=== PATIENT | female | born 1945 | race Hispanic/Latino ===

== ENCOUNTER 2017-01-18 05:08 | Inpatient (IN) | payer MEDICARE ==
--- NOTE | 2017-01-18 06:05 | ED PDOC ---
Arrival/HPI - General Chief Complaint: Hip Pain Time Seen by Provider: 01/18/17 05:20 Historian: Patient - History of Present Illness Narrative History of Present Illness (Text): 01/18/17 06:00 Alba Yan is a 71 year old female, whose past medical history includes rheumatoid arthrits, hydrocephalus, anxiety, and chronc vertigo, who presents to the Emergency department brought in by EMS complaining of near- syncope tonight. Patient states she got up from bed to use the commode and felt very weak, and dizzy. Patient states she collapsed to the floor and landed on her left side. Patient now complaining of left hip pain, left knee pain, and left ankle pain. 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 PMD: Dr. Jassi Joseph Neurosurgeon: Dr. Willett Time/Duration: Other (tonight) Symptom Onset: Gradual Symptom Course: Unchanged Activities at Onset: Light Context: Standing, Home Past Medical History - Provider Review Nursing Documentation Reviewed: Yes - Infectious Disease Hx of Infectious Diseases: None - Tetanus Immunization Tetanus Immunization: Unknown - Cardiac Hx Hypertension: Yes - Pulmonary Hx Respiratory Disorders: No - Neurological Hx Dizziness: Yes Other/Comment: hydrocephalus blood clots in her brain revision to the shunt in her brain. 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 - HEENT Hx Blind: Yes Hx Macular Degeneration: Yes Other/Comment: LEGALLY BLIND - Renal Hx Renal Disorder: No - Endocrine/Metabolic Hx Hypothyroidism: Yes - Hematological/Oncological Hx Blood Transfusions: No Hx Blood Transfusion Reaction: No - Integumentary Hx Dermatological Disorder: No - Musculoskeletal/Rheumatological Hx Arthritis: Yes - Gastrointestinal Hx Gastrointestinal Disorders: Yes - Genitourinary/Gynecological Hx Genitourinary Disorders: Yes (INCONTINENT) - Psychiatric Hx Anxiety: Yes Hx Depression: Yes Hx Substance Use: No - Surgical History Hx Joint Replacement: Yes Hx Orthopedic Surgery: Yes Other/Comment: brain shunt - Anesthesia Hx Anesthesia: Yes Hx Anesthesia Reactions: No Hx Malignant Hyperthermia: No - Suicidal Assessment Feels Threatened In Home Enviroment: No Family/Social History - Physician Review Nursing Documentation Reviewed: Yes Family/Social History: No Known Family HX Smoking Status: Former Smoker Hx Alcohol Use: No Hx Substance Use: No Hx Substance Use Treatment: No Allergies/Home Meds Allergies/Adverse Reactions: Allergies Sulfa (Sulfonamide Antibiotics) Allergy (Verified 11/23/15 12:55) RASH eye antibiotic Allergy (Uncoded 06/16/15 10:48) SWELLING BACITRACIN OINT AROUND EYES CAUSED FACIAL SWELLING Home Medications: Home Meds Medication Instructions Recorded Confirmed Atenolol 25 mg PO QAM 08/28/12 01/18/17 Levothyroxine Sodium 0.050 mg PO QOTHERDAY 08/28/12 01/18/17 Alprazolam 0.25 mg PO Q6 PRN 08/16/14 01/18/17 Levothyroxine Sodium 0.075 mg PO QOTHERDAY 08/16/14 01/18/17 Methylphenidate HCl [Ritalin] 5 mg PO BID 08/16/14 01/18/17 Celecoxib [CeleBREX] 200 mg PO DAILY 11/21/16 01/18/17 FLUoxetine [Fluoxetine HCl] 40 mg PO DAILY 11/21/16 01/18/17 Folic Acid 1 mg PO DAILY 11/21/16 01/18/17 Gabapentin [Neurontin] 100 mg PO DAILY 11/21/16 01/18/17 Lansoprazole 30 mg PO DAILY 11/21/16 01/18/17 Levothyroxine [Synthroid] 0.05 mg PO QOTHERDAY 11/21/16 01/18/17 Levothyroxine [Synthroid] 0.075 mg PO MWF 11/21/16 01/18/17 Meclizine HCl [Motion Sickness 25 mg PO DAILY 11/21/16 01/18/17 Relief] Multivitamin/Iron/Folic Acid 1 tab PO DAILY 11/21/16 01/18/17 [Centrum Complete Multivit Tab] traZODone [trazODONE HYDROCHLORIDE] 50 mg PO DAILY 11/21/16 01/18/17 Review of Systems - Physician Review All systems were reviewed & negative as marked: Yes - Review of Systems Constitutional: Other (+generalized weakness). absent: Fevers Eyes: Normal ENT: Normal Respiratory: Normal. absent: SOB, Cough Cardiovascular: Other (+near-syncope). absent: Chest Pain Gastrointestinal: Normal. absent: Abdominal Pain, Diarrhea, Nausea, Vomiting Genitourinary Female: Normal. absent: Dysuria, Frequency, Hematuria, Urine Output Changes Musculoskeletal: Arthralgias (+left hip pain, +left knee pain, +left ankle pain) Skin: Normal. absent: Rash Neurological: Dizziness. absent: Headache Endocrine: Normal Hemo/Lymphatic: Normal Psychiatric: Normal Physical Exam Vital Signs Reviewed: Yes Vital Signs Temp Pulse Resp BP Pulse Ox 01/18/17 05:19 98.2 F 78 18 145/56 L 100 Temperature: Afebrile Blood Pressure: Normal Pulse: Regular Respiratory Rate: Normal Appearance: Positive for: Well-Appearing, Non-Toxic, Comfortable Pain Distress: None Mental Status: Positive for: Alert and Oriented X 3 - Systems Exam Head: Present: Atraumatic, Normocephalic Pupils: Present: PERRL Extroacular Muscles: Present: EOMI Conjunctiva: Present: Normal Mouth: Present: Moist Mucous Membranes Neck: Present: Normal Range of Motion Respiratory/Chest: Present: Clear to Auscultation, Good Air Exchange. No: Respiratory Distress, Accessory Muscle Use Cardiovascular: Present: Regular Rate and Rhythm, Normal S1, S2. No: Murmurs Abdomen: Present: Normal Bowel Sounds. No: Tenderness, Distention, Peritoneal Signs Back: Present: Normal Inspection Upper Extremity: Present: Normal Inspection. No: Cyanosis, Edema Lower Extremity: Present: NORMAL PULSES, Normal ROM, Tenderness (Slight discomfort with left hip flexion and left knee flexion), Neurovascularly Intact , Capillary Refill < 2 s. No: Edema, Cyanosis, Swelling, Erythema Neurological: Present: GCS=15, CN II-XII Intact, Speech Normal, Motor Func Grossly Intact, Normal Sensory Function Skin: Present: Warm, Dry, Normal Color. No: Rashes Psychiatric: Present: Alert, Oriented x 3, Normal Insight, Normal Concentration Medical Decision Making ED Course and Treatment: 01/18/17 06:00 Impression: 71 year old female complaining of near-syncope s/p fall at home. Pt complaining of left hip/knee/ankle pain. Plan: -- CT Head w/o contrast -- CT Left Lower Extremity -- EKG -- Chest X-ray -- Labs, cardiac enzymes -- Reassess and disposition Prior Visits: Notes and results from previous visits were reviewed. Progress Notes: - RAD Interpretation Radiology Orders: 01/18/17 06:02 HEAD W/O CONTRAST [CT] Stat 01/18/17 06:03 CHEST PORTABLE [RAD] Stat 01/18/17 06:04 EXT LOWER W/O CONTRAST LEFT [CT] Stat 01/18/17 06:29 ANKLE LEFT 3 VIEWS ROUTINE [RAD] Stat 01/18/17 06:30 KNEE LEFT 2 VIEWS (AP & LAT) [RAD] Stat - Transfer of Care Patient signed out to Dr:: Elizabeth Pending Labs:: Labs/Xray/CT scan/Reassess/final disposition - Scribe Statement The provider has reviewed the documentation as recorded by the Scribe Tammy Fang All medical record entries made by the Scribe were at my direction and personally dictated by me. I have reviewed the chart and agree that the record accurately reflects my personal performance of the history, physical exam, medical decision making, and the department course for this patient. I have also personally directed, reviewed, and agree with the discharge instructions and disposition. Disposition/Present on Arrival - Present on Arrival Any Indicators Present on Arrival: No History of DVT/PE: No History of Uncontrolled Diabetes: No Urinary Catheter: No History of Decub. Ulcer: No History Surgical Site Infection Following: None - Disposition Have Diagnosis and Disposition been Completed?: No Diagnosis: Near syncope, Hip injury, Fall Disposition Time: 07:00 Condition: STABLE
[2017-01-18 07:12] LABS: HEMATOCRIT 38.1 % (36.0-48.0); MEAN CELL VOLUME 94.3 fL (80.0-105.0); MEAN CORPUSCULAR HEMOGLOBIN 31.7 pg (25.0-35.0); MEAN CORPUSCULAR HGB CONC 33.6 g/dl (31.0-37.0); MEAN PLATELET VOLUME 10.1 fl (7.0-11.0); RED CELL DISTRIBUTION WIDTH 15.2 % (11.5-14.5); WHITE BLOOD COUNT 7.8 10^3/ul (4.5-11.0)
[2017-01-18 07:17] LABS: ALB/GLOB RATIO 1.2 (1.1-1.8); ALKALINE PHOSPHATASE 97 U/L (38-133); ALT/SGPT 39 U/L (7-56); AST/SGOT 31 U/L (15-39); BILIRUBIN,TOTAL 0.7 mg/dL (0.2-1.3); BLOOD UREA NITROGEN 10 mg/dL (7-21); CALCIUM 9.4 mg/dL (8.4-10.5); CARBON DIOXIDE 26 mmol/L (21-33); CHLORIDE 103 mmol/L (98-107); GFR AFRICAN-AMERICAN > 60; GLUCOSE,RANDOM 90 mg/dL (70-110); POTASSIUM 4.3 mmol/L (3.6-5.0); SODIUM 140 mmol/L (132-148); TOTAL PROTEIN 7.7 g/dL (5.8-8.3)
--- NOTE | 2017-01-18 07:19 | CT ---
PROCEDURE: CT HEAD WITHOUT CONTRAST. HISTORY: fell /dizzy COMPARISON: None available. TECHNIQUE: Axial computed tomography images were obtained through the head/brain without intravenous contrast. Radiation dose: Total exam DLP = 723 mGy-cm. This CT exam was performed using one or more of the following dose reduction techniques: Automated exposure control, adjustment of the mA and/or kV according to patient size, and/or use of iterative reconstruction technique. FINDINGS: HEMORRHAGE: No interval or or recurring intracranial hemorrhage noted BRAIN: No mass effect or edema. No atrophy or chronic microvascular ischemic changes. VENTRICLES: Chronic hydrocephalus similar-appearing is renoted. The ventricular shunt entering from the right posteriorly has its tip projecting near the midline of the lateral ventricles as it did before. No change in shunt positioning noted. CALVARIUM: Craniotomy changes as before PARANASAL SINUSES: Unremarkable as visualized. No significant inflammatory changes. MASTOID AIR CELLS: Unremarkable as visualized. No inflammatory changes. OTHER FINDINGS: None. IMPRESSION: No interval or recurring intracranial hemorrhage. No interval calvarial fracture. Chronic hydrocephalus with ventricular shunt insertion and midline shunt tip positioning as before
[2017-01-18 07:29] LABS: TROPONIN I 0.01 ng/mL
--- NOTE | 2017-01-18 07:38 | RAD ---
PROCEDURE: Left Ankle Radiographs. HISTORY: injury COMPARISON: None FINDINGS: BONES: No fracture. Fibular tip intra osseous cystic changes. Prominent posterior talar process JOINTS: Mild osteoarthritis. Ankle mortise maintained. Talar dome intact SOFT TISSUES: Mild circumferential soft tissue swelling OTHER FINDINGS: None. IMPRESSION: No fracture. Soft tissue swelling
[2017-01-18 07:39] LABS: INR 1.04 (0.93-1.08); PARTIAL THROMBOPLASTIN TIME 32.2 Seconds (23.7-30.8)
--- NOTE | 2017-01-18 07:40 | ED PDOC ---
Physical Exam Vital Signs Reviewed: Yes Vital Signs Temp Pulse Resp BP Pulse Ox 01/18/17 12:00 97.9 F 59 L 16 160/57 H 01/18/17 10:36 98.5 F 67 16 133/63 98 01/18/17 09:05 56 L 16 129/51 L 96 01/18/17 07:36 61 18 126/88 97 01/18/17 06:49 61 18 99 01/18/17 05:19 98.2 F 78 18 145/56 L 100 Temperature: Afebrile Blood Pressure: Normal Pulse: Regular Respiratory Rate: Normal Appearance: Positive for: Well-Appearing, Non-Toxic, Comfortable Pain Distress: None Mental Status: Positive for: Alert and Oriented X 3 Medical Decision Making ED Course and Treatment: 01/18/17 07:37 Patient endorsed to me by , pending imagining, reevaluation and disposition. Patient is a 71 year old female who presents to the emergency department for evaluation following a near syncopal episode. States she felt weak, dizzy and collapsed to the floor landing on her left side when she got out of bed to use the commode. 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 CT Head results reviewed: Impression: No interval or recurring intracranial hemorrhage. No interval calvarial fracture. Chronic hydrocephalus with ventricular shunt insertion and midline shunt tip positioning as before. 01/18/17 09:15 Case discussed with , who agrees with the plan to observe patient at telemetry for near-syncope. Accepts patient under hospitalist service. Currently patient is awake, alert, no focal weakness noted, but gait instability reported for several days. 01/18/17 13:11 - Lab Interpretations Lab Results: 01/18/17 06:53 01/18/17 06:53 Lab Results 01/18/17 06:53: WBC 7.8 D, RBC 4.04, Hgb 12.8, Hct 38.1, MCV 94.3, MCH 31.7, MCHC 33.6, RDW 15.2 H, Plt Count 249, MPV 10.1 01/18/17 06:53: Sodium 140, Potassium 4.3, Chloride 103, Carbon Dioxide 26, Anion Gap 15, BUN 10, Creatinine 0.7, Est GFR ( Amer) > 60, Est GFR (Non- Af Amer) > 60, Random Glucose 90, Calcium 9.4, Phosphorus 3.9, Magnesium 2.2, Total Bilirubin 0.7, AST 31, ALT 39, Alkaline Phosphatase 97, Lactate Dehydrogenase 625, Total Creatine Kinase 93, Troponin I 0.01, Total Protein 7.7 , Albumin 4.2, Globulin 3.5, Albumin/Globulin Ratio 1.2 01/18/17 06:53: PT 11.2, INR 1.04, APTT 32.2 H - RAD Interpretation Radiology Orders: 01/18/17 06:02 HEAD W/O CONTRAST [CT] Stat 01/18/17 06:03 CHEST PORTABLE [RAD] Stat 01/18/17 06:04 EXT LOWER W/O CONTRAST LEFT [CT] Stat 01/18/17 06:29 ANKLE LEFT 3 VIEWS ROUTINE [RAD] Stat 01/18/17 06:30 KNEE LEFT 2 VIEWS (AP & LAT) [RAD] Stat Budget Technician: Radiologist - Medication Orders Current Medication Orders: Acetaminophen (Tylenol 325mg Tab) 650 mg PO Q6 PRN PRN Reason: Fever >100.4 F Alprazolam (Xanax) 0.25 mg PO Q6 PRN; Protocol PRN Reason: Agitation Stop: 01/25/17 10:37 Atenolol (Tenormin) 25 mg PO DAILY [facility] Fluoxetine HCl (Prozac) 40 mg PO DAILY [facility] Folic Acid (Folic Acid) 1 mg PO DAILY [facility] Gabapentin (Neurontin) 100 mg PO DAILY [facility] PRN Reason: Protocol Levothyroxine Sodium (Synthroid) 50 mcg PO QOTHERDAY [facility] Levothyroxine Sodium (Synthroid) 75 mcg PO MWF [facility] Meclizine HCl (Antivert) 25 mg PO DAILY [facility] Methylphenidate HCl (Ritalin) 5 mg PO BID [facility] Multivitamins (Thera Tab) 1 tab PO DAILY [facility] Ondansetron HCl (Zofran Inj) 4 mg IVP Q6 PRN PRN Reason: Nausea/Vomiting Pantoprazole Sodium (Protonix Ec Tab) 40 mg PO DAILY [facility] Last Admin: 01/18/17 10:49 Dose: 40 mg Trazodone HCl (Desyrel) 50 mg PO DAILY [facility] Discontinued Medications Atenolol (Tenormin) 25 mg PO QAM [facility] Non-Formulary Medication (Multivitamin/Iron/Folic Acid [Centrum Complete Multivit Tab]) 1 tab PO DAILY [facility] Disposition/Present on Arrival - Present on Arrival Any Indicators Present on Arrival: No History of DVT/PE: No History of Uncontrolled Diabetes: No Urinary Catheter: No History of Decub. Ulcer: No History Surgical Site Infection Following: None - Disposition Have Diagnosis and Disposition been Completed?: Yes Diagnosis: Near syncope, Hip injury, Fall Disposition: HOSPITALIZED Disposition Time: 08:35 Patient Plan: Telemetry Patient Problems: Current Active Problems Problem Status Onset Fall Acute Hip injury Acute Near syncope Acute Condition: STABLE
--- NOTE | 2017-01-18 07:40 | RAD ---
HISTORY: fever COMPARISON: 11/23/2015 FINDINGS: LUNGS: No active pulmonary disease. PLEURA: No significant pleural effusion identified, no pneumothorax apparent. CARDIOVASCULAR: Normal. A right cardiophrenic fat pad is suggested OSSEOUS STRUCTURES: No significant abnormalities. VISUALIZED UPPER ABDOMEN: Normal. OTHER FINDINGS: None. IMPRESSION: No interval pathology noted. Specifically no infiltrate appreciated
--- NOTE | 2017-01-18 07:51 | RAD ---
PROCEDURE: Left Knee Radiographs. HISTORY: Pain. COMPARISON: 08/16/2014 FINDINGS: BONES: Status post left total knee arthroplasty femoral and tibial components cemented. Prosthesis and alignment similar-appearing JOINTS: Normal. No osteoarthritis. JOINT EFFUSION: None. OTHER FINDINGS: Posterior distal thigh atherosclerotic vascular calcifications- slightly progressive IMPRESSION: Status post left total knee arthroplasty -stable appearance. Posterior distal thigh atherosclerotic vascular disease -calcification present slightly progressive
--- NOTE | 2017-01-18 09:31 | CT ---
PROCEDURE: CT of the left hip HISTORY: injury/pain left ankle/left knee/left hip COMPARISON: TECHNIQUE: CT of the left hip was performed without contrast. Sagittal and coronal reconstructions were provided FINDINGS: The left hip is unremarkable. There is no joint space narrowing. There is no bony abnormality. No evidence of fracture. The left side of the pelvis is unremarkable. There is no muscular or soft tissue abnormality IMPRESSION: Negative study
--- NOTE | 2017-01-18 10:43 | CP.PCM.HP ---
<Evita Rodriguez - Last Filed: 01/18/17 12:46> History of Present Illness - History of Present Illness History of Present Illness: CC: syncope 71 year old female with past medical history of HTN, normal pressure hydrocephalus, rheumatoid arthiritis, chronic vertigo presents after having an episode of fall. Patient states that she woke up this morning at 4 am to use the bathroom and her legs felt weak and she collapsed on the floor. She denies having any LOC. She landed on her left sided and was on the ground for about half hour until she crawled to phone and called ambulance. Patient states that this has happened before a few months ago. For past week patient states that she has been "feeling sick". She complains of subjective chills, increased urinary frequency and LE weakness to the point where she can't walk as much for past week. She denies having any fevers, dysuria. Patient follows with neurosurgeon, Dr. Edouard for her hydrocephalus. Patient had a shunt placed on 2000. She states that it was turned off due to clots that formed around it. At some later point, she had the shunt replaced. In November of 2015, patient had shunt turned back on. She has monthly CT scans done for evaluation. Patient was found to have subdural hemorrhage and had shunt turned off in November of 2016. She was suppose to follow up with another Ct scan this week and with Dr. Edouard this month. In ED, CT scan of head shows no interval change of her hemorrhage, no fractures and shows shunt tip positioning same as before. Patient denies having any SAUNDERS, CP, SOB, abd pain, N/V/D, fevers or chills at this point. She does complains of constipation. PMHx: stated above Sx: intracranial shunt placement, L LE arthroplasty Allergies: sulfa antibiotics, eye antibiotics Meds: see nov PMD: Dr. sims Neurosurgeon: Dr. Edouard Neurologist: Dr. Theodore Patient Service Technician Pst: Dr. Raines Social: no tobacco, ETOH or drug use Present on Admission - Present on Admission Any Indicators Present on Admission: No Review of Systems - Review of Systems All systems: reviewed and no additional remarkable complaints except Past Patient History - Infectious Disease Hx of Infectious Diseases: None - Tetanus Immunizations Tetanus Immunization: Unknown - Past Social History Smoking Status: Former Smoker Chewing Tobacco Use: No Cigar Use: No Drugs: Denies Home Situation {Lives}: Alone - CARDIAC Hx Hypertension: Yes - PULMONARY Hx Respiratory Disorders: No - NEUROLOGICAL Hx Dizziness: Yes Other/Comment: hydrocephalus blood clots in her brain revision to the shunt in her brain. 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 - HEENT Hx Blind: Yes Hx Macular Degeneration: Yes Other/Comment: LEGALLY BLIND - RENAL Hx Chronic Kidney Disease: No - ENDOCRINE/METABOLIC Hx Hypothyroidism: Yes - HEMATOLOGICAL/ONCOLOGICAL Hx Blood Transfusions: No Hx Blood Transfusion Reaction: No - INTEGUMENTARY Hx Dermatological Problems: No - MUSCULOSKELETAL/RHEUMATOLOGICAL Hx Arthritis: Yes - GASTROINTESTINAL Hx Gastrointestinal Disorders: Yes - GENITOURINARY/GYNECOLOGICAL Hx Genitourinary Disorders: Yes (INCONTINENT) - PSYCHIATRIC Hx Anxiety: Yes Hx Depression: Yes Hx Substance Use: No - SURGICAL HISTORY Hx Joint Replacement: Yes Hx Orthopedic Surgery: Yes Other/Comment: brain shunt - ANESTHESIA Hx Anesthesia: Yes Hx Anesthesia Reactions: No Hx Malignant Hyperthermia: No Meds Allergies/Adverse Reactions: Allergies Allergy/AdvReac Type Severity Reaction Status Date / Time Sulfa (Sulfonamide Allergy RASH Verified 11/23/15 12:55 Antibiotics) eye antibiotic Allergy SWELLING Uncoded 06/16/15 10:48 Physical Exam - Constitutional Appears: Non-toxic, No Acute Distress - Head Exam Head Exam: ATRAUMATIC - Eye Exam Eye Exam: EOMI - ENT Exam ENT Exam: Mucous Membranes Moist - Neck Exam Neck exam: Positive for: Full Rom, Normal Inspection. Negative for: Meningismus , Tenderness - Respiratory Exam Respiratory Exam: Clear to Auscultation Bilateral, NORMAL BREATHING PATTERN. absent: Rales, Rhonchi, Wheezes - Cardiovascular Exam Cardiovascular Exam: REGULAR RHYTHM, +S1, +S2. absent: Diastolic murmur, Gallop , Rubs, Systolic Murmur - GI/Abdominal Exam GI & Abdominal Exam: Normal Bowel Sounds, Soft. absent: Distended, Firm, Guarding, Rigid, Tenderness - Extremities Exam Extremities exam: Negative for: calf tenderness, pedal edema, tenderness - Neurological Exam Neurological exam: Alert, CN II-XII Intact, Oriented x3 - Psychiatric Exam Psychiatric exam: Normal Affect, Normal Mood - Skin Skin Exam: Dry, Intact, Normal Color, Warm Results - Vital Signs Recent Vital Signs: Last Vital Signs Temp 98.5 F 01/18/17 10:36 Pulse 67 01/18/17 10:36 Resp 16 01/18/17 10:36 BP 133/63 01/18/17 10:36 Pulse Ox 98 01/18/17 10:36 - Labs Result Diagrams: 01/18/17 06:53 01/18/17 06:53 - EKG Data EKG Interpreted by: ER Physician Assessment & Plan - Assessment and Plan (Free Text) Assessment: 71 year old female with past medical history of HTN, normal pressure hydrocephalus, rheumatoid arthiritis, chronic vertigo and hypothyroidism is admitted for fall. CT of head showed no interval or recurring intracranial hemorrhage, no cranial fractures. Patient did not exhibit any meningeal signs an no Headache. On blood work, patient had normal WBC count and was afebrile. I spoke with Dr. Edouard about patient. He states that since there are no meningeal signs or headache present and patient is A&Ox 3, and normal WBC count and afebrile, most likely there is no infection at shunt site or intracranially. recommend admitting patient for observation. S/P Fall vs. syncope likely secondary to hydrocephalus vs. infection vs. vasovagal (less likely) vs. arrhythmias (less likely) - Ct of LE is negative for fractures - Knee xray and ankle xray are negative for fractures - Initial troponin and EKg are negative - Will check serial troponin and EKG - Will get orthostatic vital signs - Will check carotid dopplers - will check blood cultures, UA and urine cultures and procal - Cardiology is consulted - ID is consulted Normal pressure hydrocephalus - Nurology, Dr. Kapadia is consulted. - Spoke with patient's neurosurgeon. Continue to monitor patient. Patient has follow up appointment next week with Dr. Edouard. Rheumatoid arthritis - will continue home medications Celebrex and multivitamin and neurontin HTN - Will continue atenolol home medication Hypothyroidism - Will continue home medication synthroid .075 mg PO Q every other day, .05 mg PO MWF - Will check TSH and free T4 Chronic vertigo - Continue home medication meclizine Anxiety - Will continue home medication alprazolam, trazadone and fluoxetine and ritalin Prophylaxis SCDs Protonix Colace Case discussed with attending, Dr. Yee - Date & Time Date: 01/18/17 Time: 11:03 <Eldon Yee - Last Filed: 01/19/17 16:23> Results - Vital Signs Recent Vital Signs: Last Vital Signs Temp 98.5 F 01/19/17 11:57 Pulse 105 H 01/19/17 11:57 Resp 20 01/19/17 11:57 BP 166/70 H 01/19/17 11:57 Pulse Ox 97 01/19/17 00:01 - Labs Result Diagrams: 01/19/17 07:00 01/19/17 07:00 Labs: Laboratory Results - last 24 hr 01/18/17 01/19/17 01/19/17 20:13 07:00 07:00 WBC 6.0 D RBC 3.69 Hgb 11.6 L Hct 34.9 L MCV 94.6 MCH 31.4 MCHC 33.2 RDW 15.1 H Plt Count 236 MPV 9.7 Gran % 65.7 Lymph % (Auto) 21.3 L [place] % (Auto) 8.8 H Eos % (Auto) 3.7 Baso % (Auto) 0.5 Gran # 3.94 Lymph # 1.3 [place] # 0.5 Eos # 0.2 Baso # 0.03 PT 10.7 INR 0.99 APTT 30.2 Sodium Potassium Chloride Carbon Dioxide Anion Gap BUN Creatinine Est GFR ( Amer) Est GFR (Non-Af Amer) Random Glucose Calcium Total Bilirubin AST ALT Alkaline Phosphatase Troponin I < 0.01 Total Protein Albumin Globulin Albumin/Globulin Ratio Urine Color Urine Appearance Urine pH Ur Specific [place] Urine Protein Urine Glucose (UA) Urine Ketones Urine Blood Urine Nitrate Urine Bilirubin Urine Urobilinogen Ur Leukocyte Esterase Urine RBC Urine WBC Urine Bacteria 01/19/17 01/19/17 07:00 09:30 WBC RBC Hgb Hct MCV MCH MCHC RDW Plt Count MPV Gran % Lymph % (Auto) [place] % (Auto) Eos % (Auto) Baso % (Auto) Gran # Lymph # [place] # Eos # Baso # PT INR APTT Sodium 139 Potassium 4.7 Chloride 102 Carbon Dioxide 31 Anion Gap 11 BUN 11 Creatinine 0.7 Est GFR ( Amer) > 60 Est GFR (Non-Af Amer) > 60 Random Glucose 100 Calcium 8.8 Total Bilirubin 0.6 AST 25 ALT 39 Alkaline Phosphatase 76 Troponin I Total Protein 6.8 Albumin 3.6 Globulin 3.2 Albumin/Globulin Ratio 1.1 Urine Color Yellow Urine Appearance Sl cloudy Urine pH 8.0 Ur Specific [place] 1.020 Urine Protein Negative Urine Glucose (UA) Negative Urine Ketones Negative Urine Blood Negative Urine Nitrate Negative Urine Bilirubin Negative Urine Urobilinogen 0.2 Ur Leukocyte Esterase Large H Urine RBC Negative Urine WBC 25 - 30 Urine Bacteria Many Attending/Attestation - Attestation I have personally seen and examined this patient.: Yes I have fully participated in the care of the patient.: Yes I have reviewed all pertinent clinical information: Yes Notes (Text): 01/19/17 16:19 attending note; Patient seen and examined with resident in ER. Patient is alert, awake and oriented. Patient is a 71 year old female with past medical history of HTN, normal pressure hydrocephalus, rheumatoid arthiritis, chronic vertigo presents after having an episode of fall. CT head if no acute findings. patient complaints of chills; but no fever. No leukocytosis. Chest x-ray is negative for infiltrates. Urinary urgency; UA ordered. fall precautions. ID and Cardiology evaluation requested. case discussed with patient's neurosurgeon in detail. PT evaluation requested. patient will follow-up with PMD Dr. Sims. 01/19/17 16:22
[2017-01-18] MEDS ORDERED: [UNRECOGNIZED DRUG - OTHER] PO SCH (10:45)
[2017-01-18] MEDS ORDERED: IRON PO SCH (10:45)
[2017-01-18] MEDS ORDERED: MULTIVITAMIN PO SCH (10:45)
[2017-01-18] MEDS ORDERED: Non Formulary Medication (Celecoxib [Celebrex] 200 MG) PO SCH (10:45)
[2017-01-18] MEDS ORDERED: FOLIC ACID T PO SCH (10:45)
[2017-01-18] MEDS: Pantoprazole 40 mg EC Tab PO SCH (10:49)
[2017-01-18 10:55] LABS: MAGNESIUM 2.2 mg/dL (1.7-2.2); PHOSPHOROUS 3.9 mg/dL (2.5-4.5)
--- NOTE | 2017-01-18 13:34 | US ---
PROCEDURE: Bilateral carotid artery duplex ultrasound HISTORY: Carotid stenosis syncope. PHYSICIAN(S): Tung Myles MD. TECHNIQUE: Duplex sonography and color-flow Doppler were used to evaluate the carotid bifurcations and limited segments of the vertebral arteries bilaterally. FINDINGS: There is mild to moderate smooth heterogeneous plaque noted at the carotid bifurcations bilaterally. The peak systolic velocity in the proximal right internal carotid artery is 107 cm/sec. This corresponds to a 40-59 percent proximal right ICA stenosis. Normal systolic velocities are noted in the proximal right external carotid artery. There is antegrade flow in the right vertebral artery. The peak systolic velocity in the proximal left internal carotid artery is 121 cm/sec. This corresponds to a 40-59 percent proximal left ICA stenosis. Normal systolic velocities are noted in the proximal left external carotid artery. There is antegrade flow in the left vertebral artery. IMPRESSION: 1. Bilateral 40-59 percent proximal ICA stenoses. 2. Antegrade flow in both vertebral arteries.
[2017-01-18] MEDS: Levothyroxine 75 MCG TAB PO SCH (13:40)
[2017-01-18 16:25] VITALS: BMI 32.9
--- NOTE | 2017-01-18 17:18 | CP.PCM.CON ---
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 She denies headache, no dizziness at the time , no chest pain or palpitations. Prior to this she states that she has been "feeling cold" for the past week. She denies fever, no nausea or vomiting, no SOB, no cough, no rhinorrhea, no sore throat, no dysuria, no diarrhea, no abdominal pain. She complains of some lower extremity weakness. Because of the "chills", Infectious diseases consult is requested to further evaluate and manage. Review of Systems - Review of Systems All systems: reviewed and no additional remarkable complaints except (as per HPI ) Past Patient History - Infectious Disease Hx of Infectious Diseases: None - Tetanus Immunizations Tetanus Immunization: Unknown - Past Social History Smoking Status: Former Smoker - CARDIAC Hx Hypertension: Yes - PULMONARY Hx Respiratory Disorders: No - NEUROLOGICAL Hx Dizziness: Yes Other/Comment: hydrocephalus blood clots in her brain revision to the shunt in her brain. 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 - HEENT Hx Blind: Yes Hx Macular Degeneration: Yes Other/Comment: LEGALLY BLIND - RENAL Hx Chronic Kidney Disease: No - ENDOCRINE/METABOLIC Hx Hypothyroidism: Yes - HEMATOLOGICAL/ONCOLOGICAL Hx Blood Transfusions: No Hx Blood Transfusion Reaction: No - INTEGUMENTARY Hx Dermatological Problems: No - MUSCULOSKELETAL/RHEUMATOLOGICAL Hx Falls: Yes - GASTROINTESTINAL Hx Gastrointestinal Disorders: Yes - GENITOURINARY/GYNECOLOGICAL Hx Genitourinary Disorders: Yes (INCONTINENT) - PSYCHIATRIC Hx Substance Use: No - SURGICAL HISTORY Hx Joint Replacement: Yes Hx Orthopedic Surgery: Yes Other/Comment: brain shunt - ANESTHESIA Hx Anesthesia: Yes Hx Anesthesia Reactions: No Hx Malignant Hyperthermia: No Meds Allergies/Adverse Reactions: Allergies Allergy/AdvReac Type Severity Reaction Status Date / Time Sulfa (Sulfonamide Allergy RASH Verified 11/23/15 12:55 Antibiotics) eye antibiotic Allergy SWELLING Uncoded 06/16/15 10:48 - Medications Medications: Current Medications Acetaminophen (Tylenol 325mg Tab) 650 mg PO Q6 PRN PRN Reason: Fever >100.4 F Alprazolam (Xanax) 0.25 mg PO Q6 PRN; Protocol PRN Reason: Agitation Stop: 01/25/17 10:37 Atenolol (Tenormin) 25 mg PO DAILY [facility] Fluoxetine HCl (Prozac) 40 mg PO DAILY [facility] Last Admin: 01/18/17 13:41 Dose: 40 mg Folic Acid (Folic Acid) 1 mg PO DAILY [facility] Last Admin: 01/18/17 13:40 Dose: 1 mg Gabapentin (Neurontin) 100 mg PO DAILY [facility] PRN Reason: Protocol Last Admin: 01/18/17 13:40 Dose: 100 mg Levothyroxine Sodium (Synthroid) 50 mcg PO QOTHERDAY [facility] Levothyroxine Sodium (Synthroid) 75 mcg PO MWF [facility] Last Admin: 01/18/17 13:40 Dose: 75 mcg Meclizine HCl (Antivert) 25 mg PO DAILY [facility] Last Admin: 01/18/17 13:40 Dose: 25 mg Methylphenidate HCl (Ritalin) 5 mg PO BID [facility] Last Admin: 01/18/17 13:40 Dose: 5 mg Multivitamins (Thera Tab) 1 tab PO DAILY [facility] Ondansetron HCl (Zofran Inj) 4 mg IVP Q6 PRN PRN Reason: Nausea/Vomiting Pantoprazole Sodium (Protonix Ec Tab) 40 mg PO DAILY [facility] Last Admin: 01/18/17 10:49 Dose: 40 mg Trazodone HCl (Desyrel) 50 mg PO DAILY [facility] Last Admin: 01/18/17 13:40 Dose: Not Given Physical Exam - Constitutional Appears: Non-toxic, No Acute Distress - Head Exam Head Exam: NORMAL INSPECTION - ENT Exam ENT Exam: Mucous Membranes Moist - Neck Exam Neck exam: Negative for: Lymphadenopathy, Meningismus - Respiratory Exam Respiratory Exam: Decreased Breath Sounds - Cardiovascular Exam Cardiovascular Exam: +S1, +S2 - GI/Abdominal Exam GI & Abdominal Exam: Soft. absent: Tenderness Results - Vital Signs Recent Vital Signs: Last Vital Signs Temp 97.9 F 01/18/17 15:41 Pulse 56 L 01/18/17 15:41 Resp 16 01/18/17 15:41 BP 160/57 H 01/18/17 15:41 Pulse Ox 98 01/18/17 10:36 - Labs Result Diagrams: 01/18/17 06:53 05/03/17 06:53 Labs: Laboratory Results - last 24 hr 01/18/17 01/18/17 01/18/17 10:35 10:56 13:47 ESR 18 Troponin I < 0.01 Influenza Typ A,B (EIA) Negative for flu a/b Assessment & Plan - Assessment and Plan (Free Text) Plan: Assessment R/O sepsis in a patient presenting with syncope normal pressure hydrocephalus S/P [employer]ERING [employer]PERATIONS MANAGER shunt placement last month rheumatoid arthritis vertigo S/P left knee arthroplasty Plan Patient does not have leukocytosis; CXR does not show active disease; Procalcitonin is only 0.06 - will monitor off antibiotics and follow up blood cx , urinalysis and urine cx results Medicine team to continue syncope work up Will monitor clinically
[2017-01-18] MEDS ORDERED: Magnesium Hydroxide Susp 30 ml UD PO PRN (18:03)
--- NOTE | 2017-01-18 18:48 | CARD ---
APPROVED REPORT EKG Measurement Heart [id number] <Conclusion> Normal sinus rhythm Normal ECG
--- NOTE | 2017-01-18 18:50 | CARD ---
APPROVED REPORT EKG Measurement Heart [id number] <Conclusion> Sinus rhythm normal ECG
[2017-01-18] MEDS: cycloSPORINE 0.05 % Opth Emulsion UD OU SCH (22:58)
[2017-01-19 07:36] LABS: ADD MANUAL DIFF? NO
[2017-01-19 07:39] LABS: BASO # 0.03 K/mm3 (0.0-2.0); BASO % 0.5 % (0.0-3.0); EOS # 0.2 (0.0-0.7); EOS % 3.7 % (1.5-5.0); GRAN # 3.94 (1.4-6.5); GRAN % 65.7 % (50.0-68.0); HEMATOCRIT 34.9 % (36.0-48.0); LYMPH # 1.3 (1.2-3.4); LYMPH % 21.3 % (22.0-35.0); MEAN CELL VOLUME 94.6 fL (80.0-105.0); MEAN CORPUSCULAR HEMOGLOBIN 31.4 pg (25.0-35.0); MEAN CORPUSCULAR HGB CONC 33.2 g/dl (31.0-37.0); MEAN PLATELET VOLUME 9.7 fl (7.0-11.0); MONO # 0.5 (0.1-0.6); MONO % 8.8 % (1.0-6.0); PLATELET COUNT 236 10^3/uL (120.0-450.0); RED CELL DISTRIBUTION WIDTH 15.1 % (11.5-14.5)
[2017-01-19 07:48] LABS: INR 0.99 (0.93-1.08); PARTIAL THROMBOPLASTIN TIME 30.2 Seconds (23.7-30.8)
[2017-01-19 07:56] LABS: ALB/GLOB RATIO 1.1 (1.1-1.8); ALKALINE PHOSPHATASE 76 U/L (38-133); ALT/SGPT 39 U/L (7-56); AST/SGOT 25 U/L (15-39); BILIRUBIN,TOTAL 0.6 mg/dL (0.2-1.3); BLOOD UREA NITROGEN 11 mg/dL (7-21); CALCIUM 8.8 mg/dL (8.4-10.5); CARBON DIOXIDE 31 mmol/L (21-33); CHLORIDE 102 mmol/L (98-107); GFR AFRICAN-AMERICAN > 60; GLUCOSE,RANDOM 100 mg/dL (70-110); POTASSIUM 4.7 mmol/L (3.6-5.0); SODIUM 139 mmol/L (132-148); TOTAL PROTEIN 6.8 g/dL (5.8-8.3)
[2017-01-19] MEDS ORDERED: Enoxaparin 40 mg Syringe SC SCH (10:00)
[2017-01-19] MEDS ORDERED: Non Formulary Medication (Celecoxib [Celebrex] 200 MG) PO SCH (10:00)
--- NOTE | 2017-01-19 10:22 | CON ---
DATE: 01/19/2017 INDICATIONS: Fall, rule out syncope. HISTORY OF PRESENT ILLNESS: This is a 71-year-old woman who is known to us who was admitted yesterday after she fell at home. Apparently, she got up from bed to go to the bathroom, felt weak, and fell to the floor without loss of consciousness, palpitations, chest pain, or shortness of breath. She has a history of multiple falls and has complex medical and neurological problems with normal pressure hydrocephalus status post [employer] MANAGER [employer]ODUCTION shunt. She has had difficulty walking. There have been many falls in the past. In addition to falling, she has felt unwell and weak with chills and urinary frequency. There is no orthopnea, PND, edema, fever, sputum production, hemoptysis, abdominal pain, nausea, vomiting, diarrhea, constipation, melena. PAST MEDICAL HISTORY: Complex. She has normal pressure hydrocephalus. She has had a [employer] MA[employer]GER [employer]ODUCTION shunt, and she has neurologic and neurosurgical followup for this. She has rheumatoid arthritis. She has had subdural hematomas. There is a history of cardiac catheterization in 2014, at which time minimal coronary artery disease was noted. There is a history of hypertension, hypothyroidism, osteoarthritis, depression, anxiety, gait disorder. She is legally blind. There is no history of rheumatic fever, myocardial infarction, angina, arrhythmia, stroke, TIA, or gout. MEDICATIONS: At the time of admission include Xanax, atenolol, vitamins, Colace , trazodone, folic acid, lansoprazole, Synthroid, meclizine, gabapentin, fluoxetine, Ritalin, and Celebrex. ALLERGIES: SHE NOTES ALLERGIES TO ANTIBIOTICS INCLUDING SULFA MEDICATIONS. SOCIAL HISTORY: She does not smoke or drink alcohol. She lives at home. FAMILY HISTORY: Noncontributory. REVIEW OF SYSTEMS: A 10-point review of systems is otherwise unremarkable except as noted above. PHYSICAL EXAMINATION: GENERAL: She is a well-developed woman lying in bed on telemetry in no acute distress. VITAL SIGNS: Unremarkable. She is in sinus rhythm at 48-65 beats per minute. She is afebrile, blood pressure 129/52, respiratory rate 16-20, O2 sat 97% on room air. HEENT: Reveals no neck-vein distention, thyromegaly, or carotid bruits. Mucous membranes are moist. Conjunctivae are pink. NECK: Supple. LUNGS: Lung acosta are clear. HEART: Revealed normal first and second heart sounds. PMI is not displaced. ABDOMEN: Soft, bowel sounds present. No mass, organomegaly, tenderness, rebound, or guarding. No CVA tenderness. No palpable abdominal aortic aneurysm. EXTREMITIES: Revealed no cyanosis, clubbing, or edema. NEUROLOGIC: She is awake, alert, and oriented. SKIN: Warm and dry. No rash or cellulitis. PSYCHIATRIC: Normal as to mood and affect. LABORATORY AND IMAGING: A CT scan of the head was unremarkable and unchanged. A chest x-ray, a portable study, reveals no interval pathology. Lower extremity CT was unremarkable. Left ankle x-ray revealed no fracture, but there was soft tissue swelling. A left knee x-ray reveals status post left total knee arthroplasty, stable appearance. A carotid ultrasound reveals bilateral 40%-59% proximal ICA stenoses. EKG demonstrates normal sinus rhythm, within normal limits. White count normal, hemoglobin 11.6, hematocrit 34.9, platelet count normal. PT , INR, PTT unremarkable. Electrolytes, BUN, creatinine, blood sugar, magnesium , LFTs were all unremarkable. Troponins negative x 3. CK 93. Procalcitonin 0.06. IMPRESSION: The patient is a 71-year-old woman with complex medical and neurologic problems with normal-pressure hydrocephalus and an existing [employer] shunt with chronic gait instability and history of falls, who fell at home after getting up from bed to go to the bathroom. She also felt weak with chills and urinary frequency. Today, she feels better. There has been no arrhythmia documented on telemetry. She has been cultured. She has an infectious disease consultation. She has been put on her usual medications including atenolol, Synthroid, gabapentin, folic acid, trazodone, Antivert, Protonix, eyedrops, Ritalin, vitamins, and Xanax. I would check her for postural hypotension. I will review her old cardiac records. She is going to have a neurologic evaluation. She can be out of bed to chair. She should be considered a high fall risk and ambulate only with assistance. I will follow along with you. I will make additional recommendations based on her clinical course. Negro San MD cc: [id number] TT: 01/19/2017 10:21:47 Confirmation # [id number] Dictation # [id number] MEG
[2017-01-19] MEDS: Pantoprazole 40 mg EC Tab PO SCH (10:31)
[2017-01-19] MEDS: Levothyroxine 50 MCG TAB PO SCH (10:31)
[2017-01-19] MEDS: Multivitamin Therapeutic Tab PO SCH (10:32)
[2017-01-19] MEDS: cycloSPORINE 0.05 % Opth Emulsion UD OU SCH ×2 (10:37→23:16)
[2017-01-19] MEDS ORDERED: guaiFENesin 200 mg/10 ml Syrup UD PO PRN (12:35)
--- NOTE | 2017-01-19 13:12 | CON ---
DATE: 01/19/2017 This is a 71-year-old white female with a past medical history of normal pressure hydrocephalus, stat us post FINANCIAL QUANTITATIVE ANALYST shunt and rheumatoid arthritis, had subdural hematoma, recently evacuated. Now, admitted because she fell at home. The patient got up from the bed to bathroom, felt weak and fell on the nichelle or without loss of consciousness and had multiple falls in the past and status post FINANCIAL QUANTITATIVE ANALYST shunt, had dif ficulty walking. Called to evaluate the patient. PAST MEDICAL HISTORY: Normal pressure hydrocephalus, status post FINANCIAL QUANTITATIVE ANALYST shunt, status post subdural jose katherin evacuation, rheumatoid arthritis, coronary artery disease, hypertension, hypothyroidism, depress ion, anxiety and gait disorder. MEDICATIONS: Xanax, atenolol, trazodone, Synthroid, meclizine, gabapentin, Ritalin and Celebrex. ALLERGIES: SHE IS ALLERGIC TO SULFA. SOCIAL HISTORY: Does not smoke, does not drink. REVIEW OF SYSTEMS: A 10-point was negative except as noted above. PHYSICAL EXAMINATION: HEENT: Normocephalic, atraumatic. NECK: Supple. NEUROLOGIC: Awake, oriented to self, sitting comfortably on the bed. No facial asymmetry. Tongue m idline. Motor examination: Spontaneous movement of all the extremities noted. Deep tendon reflexes 1+. Both plantars are downgoing. Sensory appears intact. Cerebellar, gait deferred. IMPRESSION: A 71-year-old white female with a past medical history of normal pressure hydrocephalus with ventriculoperitoneal shunt and had a syncopal episode going to the bathroom and workup in [facility]. Continue present management. We will follow up. Radhames Kapadia MD cc: [id number] TT: 01/19/2017 13:12:08 Confirmation # [id number] Dictation # [id number]
--- NOTE | 2017-01-19 13:25 | CP.PCM.PN ---
<Evita Rodriguez - Last Filed: 01/19/17 13:21> Subjective - Date & Time of Evaluation Date of Evaluation: 01/19/17 Time of Evaluation: 13:21 - Subjective Subjective: HOSPITALISTS PROGRESS NOTE Pt is seen and examined at bedside. No acute events overnight. Patient is waling to bathroom. She states that she feels weak when she walks but is able to without any assistance. Patient denies having any fevers, chills, CP, sob, abd pain, n/v/d/c. She does c/o cough. Objective - Vital Signs/Intake and Output Vital Signs (last 24 hours): Temp Pulse Resp BP Pulse Ox 98.5 F 105 H 20 166/70 H 97 01/19/17 11:57 01/19/17 11:57 01/19/17 11:57 01/19/17 11:57 01/19/17 00:01 Intake and Output: 01/19/17 01/19/17 06:59 18:59 Intake Total 840 Output Total 1950 Balance -1110 - Medications Medications: Current Medications Acetaminophen (Tylenol 325mg Tab) 650 mg PO Q6 PRN PRN Reason: Fever >100.4 F Alprazolam (Xanax) 0.25 mg PO Q6 PRN; Protocol PRN Reason: Agitation Stop: 01/25/17 10:37 Atenolol (Tenormin) 25 mg PO DAILY [facility] Last Admin: 01/19/17 10:32 Dose: 25 mg Cyclosporine (Restasis) 1 ea OU Q12 [facility] Last Admin: 01/19/17 10:37 Dose: 1 ea Fluoxetine HCl (Prozac) 40 mg PO DAILY [facility] Last Admin: 01/19/17 10:32 Dose: 40 mg Folic Acid (Folic Acid) 1 mg PO DAILY [facility] Last Admin: 01/19/17 10:31 Dose: 1 mg Gabapentin (Neurontin) 100 mg PO DAILY [facility] PRN Reason: Protocol Last Admin: 01/19/17 10:40 Dose: 100 mg Guaifenesin (Robitussin) 200 mg PO Q4H PRN PRN Reason: Cough and congestion Levothyroxine Sodium (Synthroid) 50 mcg PO QOTHERDAY [facility] Last Admin: 01/19/17 10:31 Dose: 50 mcg Levothyroxine Sodium (Synthroid) 75 mcg PO MWF [facility] Last Admin: 01/18/17 13:40 Dose: 75 mcg Magnesium Hydroxide (Milk Of Magnesia) 30 ml PO DAILY PRN PRN Reason: Constipation Last Admin: 01/18/17 22:58 Dose: 30 ml Meclizine HCl (Antivert) 25 mg PO DAILY [facility] Last Admin: 01/19/17 10:31 Dose: 25 mg Methylphenidate HCl (Ritalin) 5 mg PO BID [facility] Last Admin: 01/19/17 10:37 Dose: 5 mg Multivitamins (Thera Tab) 1 tab PO DAILY [facility] Last Admin: 01/19/17 10:32 Dose: 1 tab Ondansetron HCl (Zofran Inj) 4 mg IVP Q6 PRN PRN Reason: Nausea/Vomiting Pantoprazole Sodium (Protonix Ec Tab) 40 mg PO DAILY [facility] Last Admin: 01/19/17 10:31 Dose: 40 mg Trazodone HCl (Desyrel) 50 mg PO HS [facility] Last Admin: 01/18/17 22:58 Dose: 50 mg - Labs Labs: 01/19/17 07:00 01/19/17 07:00 PT 10.7 Seconds (9.9-11.8) 01/19/17 07:00 INR 0.99 (0.93-1.08) 01/19/17 07:00 APTT 30.2 Seconds (23.7-30.8) 01/19/17 07:00 - Constitutional Appears: Non-toxic, No Acute Distress - Head Exam Head Exam: ATRAUMATIC - ENT Exam ENT Exam: Mucous Membranes Moist - Respiratory Exam Respiratory Exam: Clear to Ausculation Bilateral, NORMAL BREATHING PATTERN. absent: Rales, Rhonchi, Wheezes - Cardiovascular Exam Cardiovascular Exam: REGULAR RHYTHM, +S1, +S2. absent: Gallop, Rubs, Murmur - GI/Abdominal Exam GI & Abdominal Exam: Soft, Normal Bowel Sounds. absent: Distended, Firm, Guarding, Rigid, Tenderness - Extremities Exam Extremities Exam: absent: Pedal Edema, Tenderness - Neurological Exam Neurological Exam: Alert, Awake, Oriented x3 - Psychiatric Exam Psychiatric exam: Normal Affect, Normal Mood - Skin Skin Exam: Dry, Intact, Normal Color, Warm Assessment and Plan - Assessment and Plan (Free Text) Assessment: 71 year old female with past medical history of HTN, normal pressure hydrocephalus, rheumatoid arthiritis, chronic vertigo and hypothyroidism is admitted for fall. CT of head showed no interval or recurring intracranial hemorrhage, no cranial fractures. Patient did not exhibit any meningeal signs an no headache. On blood work, patient had normal WBC count and was afebrile. Ct of LE is negative for fractures. Knee xray and ankle xray are negative for fractures. I spoke with Dr. Willett about patient. He states that since there are no meningeal signs or headache present and patient is A&Ox 3, and normal WBC count and afebrile, most likely there is no infection at shunt site or intracranially. recommend admitting patient for observation. Dr. Liu's number is [phone]. S/P Fall vs. syncope likely secondary to hydrocephalus vs. infection vs. vasovagal (less likely) vs. arrhythmias (less likely) - Troponins and EKG are negative - Oorthostatic vital signs are normal - Carotid dopplers show 40-59% stenosis in B/L ICA - Procal is negative - Blood and urine cultures are pending - Cardiology is consulted - ID is consulted - Neurology is consulted Normal pressure hydrocephalus - Nurology, Dr. Kapadia is consulted. - Spoke with patient's neurosurgeon. Continue to monitor patient. Patient has follow up appointment next week with Dr. Willett. Rheumatoid arthritis - will continue home medications Celebrex and multivitamin and neurontin HTN - Will continue atenolol home medication Hypothyroidism - Will continue home medication synthroid .075 mg PO Q every other day, .05 mg PO MWF - Will check TSH and free T4 Chronic vertigo - Continue home medication meclizine Anxiety - Will continue home medication alprazolam, trazadone and fluoxetine and ritalin Cough - Robitussin prn Prophylaxis SCDs Protonix Colace Case discussed with attending, Dr. Yee <Eldon Yee - Last Filed: 01/19/17 16:28> Objective - Vital Signs/Intake and Output Vital Signs (last 24 hours): Temp Pulse Resp BP Pulse Ox 98.5 F 105 H 20 166/70 H 97 01/19/17 11:57 01/19/17 11:57 01/19/17 11:57 01/19/17 11:57 01/19/17 00:01 Intake and Output: 01/19/17 01/19/17 06:59 18:59 Intake Total 840 397 Output Total 1950 100 Balance -1110 297 - Medications Medications: Current Medications Acetaminophen (Tylenol 325mg Tab) 650 mg PO Q6 PRN PRN Reason: Fever >100.4 F Alprazolam (Xanax) 0.25 mg PO Q6 PRN; Protocol PRN Reason: Agitation Stop: 01/25/17 10:37 Atenolol (Tenormin) 25 mg PO DAILY [facility] Last Admin: 01/19/17 10:32 Dose: 25 mg Cyclosporine (Restasis) 1 ea OU Q12 [facility] Last Admin: 01/19/17 10:37 Dose: 1 ea Fluoxetine HCl (Prozac) 40 mg PO DAILY [facility] Last Admin: 01/19/17 10:32 Dose: 40 mg Folic Acid (Folic Acid) 1 mg PO DAILY [facility] Last Admin: 01/19/17 10:31 Dose: 1 mg Gabapentin (Neurontin) 100 mg PO DAILY [facility] PRN Reason: Protocol Last Admin: 01/19/17 10:40 Dose: 100 mg Guaifenesin (Robitussin) 200 mg PO Q4H PRN PRN Reason: Cough and congestion Ceftriaxone Sodium (Rocephin 1 Gram Ivpb) 1 gm in 100 mls @ 100 mls/hr IVPB DAILY [facility] PRN Reason: Protocol Levothyroxine Sodium (Synthroid) 50 mcg PO QOTHERDAY [facility] Last Admin: 01/19/17 10:31 Dose: 50 mcg Levothyroxine Sodium (Synthroid) 75 mcg PO MWF [facility] Last Admin: 01/18/17 13:40 Dose: 75 mcg Magnesium Hydroxide (Milk Of Magnesia) 30 ml PO DAILY PRN PRN Reason: Constipation Last Admin: 01/18/17 22:58 Dose: 30 ml Meclizine HCl (Antivert) 25 mg PO DAILY [facility] Last Admin: 01/19/17 10:31 Dose: 25 mg Methylphenidate HCl (Ritalin) 5 mg PO BID [facility] Last Admin: 01/19/17 10:37 Dose: 5 mg Multivitamins (Thera Tab) 1 tab PO DAILY [facility] Last Admin: 01/19/17 10:32 Dose: 1 tab Ondansetron HCl (Zofran Inj) 4 mg IVP Q6 PRN PRN Reason: Nausea/Vomiting Pantoprazole Sodium (Protonix Ec Tab) 40 mg PO DAILY [facility] Last Admin: 01/19/17 10:31 Dose: 40 mg Trazodone HCl (Desyrel) 50 mg PO HS [facility] Last Admin: 01/18/17 22:58 Dose: 50 mg - Labs Labs: 01/19/17 07:00 01/19/17 07:00 PT 10.7 Seconds (9.9-11.8) 01/19/17 07:00 INR 0.99 (0.93-1.08) 01/19/17 07:00 APTT 30.2 Seconds (23.7-30.8) 01/19/17 07:00 Attending/Attestation - Attestation I have personally seen and examined this patient.: Yes I have fully participated in the care of the patient.: Yes I have reviewed all pertinent clinical information, including history, physical exam and plan: Yes Notes (Text): 01/19/17 16:25 attending note; Patient seen and examined with resident. Patient is alert, awake and oriented. denies any fevar or chills. CE negative. no orthostatic blood pressure changes. CT head if no acute findings. Chest x-ray is negative for infiltrates. Procalcitonin is negative. ESR is negative. positive UA.Started on Rocephin. ID and Cardiology evaluation appreciated. neurology evaluation appreciated. PT evaluation appreciated. TCU recommended. patient will follow-up with PMD Dr. Joseph.
[2017-01-19 13:58] LABS: URINE BILIRUBIN NEGATIVE (NEGATIVE); URINE BLOOD NEGATIVE (NEGATIVE); URINE GLUCOSE (UA) NEGATIVE (NEGATIVE); URINE KETONE NEGATIVE (NEGATIVE); URINE LEUKOCYTE ESTERASE LARGE Leu/uL (NEGATIVE); URINE PROTEIN NEGATIVE mg/dL (<30 mg/dL); URINE UROBILINOGEN 0.2 E.U./dL (<1 E.U./dL)
[2017-01-19 14:08] LABS: URINE APPEARANCE SL CLOUDY (CLEAR); URINE COLOR YELLOW (YELLOW)
[2017-01-19 14:09] LABS: URINE BACTERIA MANY (NEG); URINE RBC NEGATIVE /hpf (0-2); URINE WBC 25 - 30 /hpf (0-6)
--- NOTE | 2017-01-19 14:17 | PN ---
DATE: 01/19/2017 SUBJECTIVE: The patient seen earlier in 272, bed 2. She states she is having cough that has been pe rsistent now for some time. No nausea or vomiting. No fevers, no chills. PHYSICAL EXAMINATION: VITAL SIGNS: Temperature is 98, blood pressure is 160/70, respiratory rate of 20, heart rate of 105. HEENT: Unremarkable. NECK: Supple. LUNGS: Have decreased breath sounds. HEART: Normal S1, S2. ABDOMEN: Soft, nontender. LABORATORY DATA: Reveals a white count of 6, hemoglobin 11, platelets of 236. Chemistries reveal th e BUN of 11, creatinine of 0.7 and procalcitonin 0.06 Serology is negative for influenza. Blood cul tures are pending. Review of the medications reveals the patient to be on no antibiotics. The patient's procalcitonin 0 .06 and white count is normal. Temperature is afebrile. ____ note is reviewed. Dr. Kapadia's co nsultation is reviewed. Dr. Negro San's consultation is also reviewed. ASSESSMENT AND PLAN: This is a 71-year-old female with normal pressure hydrocephalus with a ventricu loperitoneal shunt, history of rheumatoid arthritis, who was admitted with syncope and currently off of antibiotics, afebrile, normal white count, a normal procalcitonin. She is having a persistent cou gh which she has had, she states, for months, for which patient did have a chest x-ray which was no a ctive disease, and a CAT scan of the head. Will follow with you. Aashish Sparks MD cc: [id number] TT: 01/19/2017 14:16:35 Confirmation # [id number] Dictation # [id number] [employer]
--- NOTE | 2017-01-19 16:09 | CARD ---
APPROVED REPORT EXAM: Two-dimensional and M-mode echocardiogram with Doppler and color Doppler. INDICATION Syncope 2D DIMENSIONS Left Atrium (2D)3.6 (1.6-4.0cm)IVSd1.4 (0.7-1.1cm) LVDd4.7 (3.9-5.9cm)PWd1.1 (0.7-1.1cm) LVDs3.3 (2.5-4.0cm)FS (%) 29.0 % LVEF (%)55.5 (>50%) M-Mode DIMENSIONS Aortic Root2.80 (2.2-3.7cm)Aortic Cusp Exc.1.70 (1.5-2.0cm) Aortic Valve AoV Peak Spvnauva558.0cm/Adelfo Peak GR.13mmHg Mitral Valve MV E Vzkzkneq04.8cm/sMV A Swwwutao43.8cm/sE/A ratio0.9 TDI E/Lateral E'0.0E/Medial E'0.0 Tricuspid Valve TR Peak [id number]/sRAP [id number] Peak Gr.14mmHg [id number] LEFT VENTRICLE The left ventricle is normal size. There is mild concentric left ventricular hypertrophy. The left ventricular function is normal. The left ventricular ejection fraction is within the normal range. There is normal LV segmental wall motion. Transmitral Doppler flow pattern is Grade I-abnormal relaxation pattern. RIGHT VENTRICLE The right ventricle is normal size. The right ventricle is mildly hypertrophied. The right ventricular systolic function is normal. ATRIA The left atrium size is normal. The right atrium size is normal. AORTIC VALVE The aortic valve is normal in structure. There is trace aortic regurgitation. MITRAL VALVE The mitral valve is mildly thickened. Mitral regurgitation is trace. TRICUSPID VALVE There is no pulmonary hypertension. GREAT VESSELS The aortic root is normal in size. The IVC is normal in size and collapses >50% with inspiration. PERICARDIAL EFFUSION There is no pericardial effusion. <Conclusion> The left ventricle is normal size. There is mild concentric left ventricular hypertrophy. The left ventricular function is normal. The left ventricular ejection fraction is within the normal range. There is normal LV segmental wall motion. Transmitral Doppler flow pattern is Grade I-abnormal relaxation pattern.
[2017-01-19] MEDS: cefTRIAXone 1 gm 1 GM/100 ML BAG IVPB SCH (17:52)
[2017-01-20] MEDS ORDERED: Albuterol-Ipratrop 3 mg / 0.5 (3 ml) UD IH PRN (07:53)
[2017-01-20 07:56] LABS: ADD MANUAL DIFF? NO
[2017-01-20 08:01] LABS: BASO # 0.03 K/mm3 (0.0-2.0); BASO % 0.5 % (0.0-3.0); EOS # 0.2 (0.0-0.7); EOS % 4.2 % (1.5-5.0); GRAN # 3.76 (1.4-6.5); GRAN % 65.8 % (50.0-68.0); HEMATOCRIT 37.8 % (36.0-48.0); LYMPH # 1.2 (1.2-3.4); LYMPH % 21.4 % (22.0-35.0); MEAN CORPUSCULAR HEMOGLOBIN 31.1 pg (25.0-35.0); MEAN CORPUSCULAR HGB CONC 33.1 g/dl (31.0-37.0); MEAN PLATELET VOLUME 9.7 fl (7.0-11.0); MONO # 0.5 (0.1-0.6); MONO % 8.1 % (1.0-6.0); PLATELET COUNT 230 10^3/uL (120.0-450.0); RED CELL DISTRIBUTION WIDTH 14.8 % (11.5-14.5); WHITE BLOOD COUNT 5.7 10^3/ul (4.5-11.0)
[2017-01-20 08:18] LABS: ALB/GLOB RATIO 1.2 (1.1-1.8); ALKALINE PHOSPHATASE 85 U/L (38-133); ALT/SGPT 35 U/L (7-56); AST/SGOT 26 U/L (15-39); BILIRUBIN,TOTAL 0.6 mg/dL (0.2-1.3); BLOOD UREA NITROGEN 11 mg/dL (7-21); CALCIUM 9.1 mg/dL (8.4-10.5); CARBON DIOXIDE 27 mmol/L (21-33); CHLORIDE 102 mmol/L (98-107); GFR AFRICAN-AMERICAN > 60; GLUCOSE,RANDOM 91 mg/dL (70-110); MAGNESIUM 2.1 mg/dL (1.7-2.2); PHOSPHOROUS 4.2 mg/dL (2.5-4.5); POTASSIUM 4.2 mmol/L (3.6-5.0); SODIUM 138 mmol/L (132-148); TOTAL PROTEIN 7.4 g/dL (5.8-8.3)
[2017-01-20 08:30] LABS: FREE T4 0.76 ng/dL (0.78-2.19)
[2017-01-20 08:44] LABS: THYROID STIMULATING HORMONE 4.09 mIU/mL (0.46-4.68)
--- NOTE | 2017-01-20 09:08 | CP.PCM.PN ---
Subjective - Date & Time of Evaluation Date of Evaluation: 01/20/17 Time of Evaluation: 07:00 - Subjective Subjective: Stable on 2R. No CP, SOB, Dizziness. V/S noted. RSR. Normal postural V/S noted. PE: Lungs: clear Cor.: S1S2 Abd.: soft Ext.: no edema Neuro.: alert I/O= 768/300 BC x2 NG at 24 hrs. Echo: Nl LV fx. Objective - Vital Signs/Intake and Output Vital Signs (last 24 hours): Temp Pulse Resp BP Pulse Ox 98.7 F 52 L 20 135/55 L 95 01/20/17 06:00 01/20/17 06:00 01/20/17 06:00 01/20/17 06:00 01/20/17 06:00 Intake and Output: 01/20/17 01/20/17 06:59 18:59 Intake Total 371 Output Total 200 Balance 171 - Medications Medications: Current Medications Acetaminophen (Tylenol 325mg Tab) 650 mg PO Q6 PRN PRN Reason: Fever >100.4 F Albuterol/Ipratropium (Duoneb 3 Mg/0.5 Mg (3 Ml) Ud) 3 ml IH [id number] PRN PRN Reason: Shortness of Breath Alprazolam (Xanax) 0.25 mg PO Q6 PRN; Protocol PRN Reason: Agitation Stop: 01/25/17 10:37 Atenolol (Tenormin) 25 mg PO DAILY [facility] Last Admin: 01/19/17 10:32 Dose: 25 mg Cyclosporine (Restasis) 1 ea OU Q12 [facility] Last Admin: 01/19/17 23:16 Dose: 1 ea Fluoxetine HCl (Prozac) 40 mg PO DAILY [facility] Last Admin: 01/19/17 10:32 Dose: 40 mg Folic Acid (Folic Acid) 1 mg PO DAILY [facility] Last Admin: 01/19/17 10:31 Dose: 1 mg Gabapentin (Neurontin) 100 mg PO DAILY [facility] PRN Reason: Protocol Last Admin: 01/19/17 10:40 Dose: 100 mg Guaifenesin (Robitussin) 200 mg PO Q4H PRN PRN Reason: Cough and congestion Ceftriaxone Sodium (Rocephin 1 Gram Ivpb) 1 gm in 100 mls @ 100 mls/hr IVPB DAILY [facility] PRN Reason: Protocol Last Admin: 01/19/17 17:52 Dose: 100 mls/hr Levothyroxine Sodium (Synthroid) 50 mcg PO QOTHERDAY [facility] Last Admin: 01/19/17 10:31 Dose: 50 mcg Levothyroxine Sodium (Synthroid) 75 mcg PO MWF [facility] Last Admin: 01/18/17 13:40 Dose: 75 mcg Magnesium Hydroxide (Milk Of Magnesia) 30 ml PO DAILY PRN PRN Reason: Constipation Last Admin: 01/18/17 22:58 Dose: 30 ml Meclizine HCl (Antivert) 25 mg PO DAILY [facility] Last Admin: 01/19/17 10:31 Dose: 25 mg Methylphenidate HCl (Ritalin) 5 mg PO BID [facility] Last Admin: 01/19/17 17:52 Dose: 5 mg Multivitamins (Thera Tab) 1 tab PO DAILY [facility] Last Admin: 01/19/17 10:32 Dose: 1 tab Ondansetron HCl (Zofran Inj) 4 mg IVP Q6 PRN PRN Reason: Nausea/Vomiting Pantoprazole Sodium (Protonix Inj) 40 mg IVP DAILY [facility] Trazodone HCl (Desyrel) 50 mg PO HS [facility] Last Admin: 01/19/17 23:24 Dose: 50 mg - Labs Labs: 01/20/17 06:30 01/20/17 06:30 PT 10.7 Seconds (9.9-11.8) 01/19/17 07:00 INR 0.99 (0.93-1.08) 01/19/17 07:00 APTT 30.2 Seconds (23.7-30.8) 01/19/17 07:00 Assessment and Plan - Assessment and Plan (Free Text) Plan: Assessment: Falls NPH/Gait Instability RA CAD, minimal on cath 2014 H/O SDH HBP Hypothyroidism CVD OA Depression/Anxiety Legally Blind Plan: As per medical team, Neuro., Neurosurgery (by phone), ID OK to D/C tel. TCU [facility].
--- NOTE | 2017-01-20 09:41 | PN ---
DATE: 01/20/2017 The patient is in bed, in no acute distress, nontoxic. PHYSICAL EXAMINATION: VITAL SIGNS: Temperature is 98, blood pressure is 130/50, respiratory rate of 16. HEENT: Unremarkable. NECK: Supple. LUNGS: Have decreased breath sounds. HEART: Normal S1, S2. ABDOMEN: Soft, nontender. LABORATORY DATA: WBC count is 5.7, hemoglobin of 12, platelets of 230. BUN of 11, creatinine of 0.7 . Procalcitonin 0.06. Urinalysis is noted. Influenza is negative. MICROBIOLOGY: Reveals the blood cultures are no growth. REVIEW OF ORDERS: Reveals the patient to be on ceftriaxone, started by Dr. Yee. Dr. Yee 's note is reviewed. ASSESSMENT AND PLAN: This is a 71-year-old female with hypertension, normal pressure hydrocephalus w ith a ventriculoperitoneal shunt and a history of rheumatoid arthritis, chronic vertigo and hypothyro idism, admitted after a fall. Now with a normal white count, no fevers, negative blood cultures, neg ative influenza, normal LFTs and white count of 5.7. Waiting for the urine culture. Started on ceft riaxone by Dr. Yee; will discuss with her. The patient has a normal procalcitonin. No evidenc e of infection. Will discuss with Dr. Yee regarding discontinuing the ceftriaxone. The patien t is at risk for developing nosocomial infections. Aashish Sparks MD cc: [id number] TT: 01/20/2017 09:40:36 Confirmation # [id number] Dictation # [id number] [place]
[2017-01-20] MEDS: cefTRIAXone 1 gm 1 GM/100 ML BAG IVPB SCH ×2 (10:25→11:07)
[2017-01-20] MEDS: Multivitamin Therapeutic Tab PO SCH (10:27)
[2017-01-20] MEDS: Levothyroxine 75 MCG TAB PO SCH (10:27)
[2017-01-20] MEDS: cycloSPORINE 0.05 % Opth Emulsion UD OU SCH ×2 (10:57→22:18)
--- NOTE | 2017-01-20 11:17 | CP.PCM.PN ---
<Evita Rodriguez - Last Filed: 01/20/17 12:47> Subjective - Date & Time of Evaluation Date of Evaluation: 01/20/17 Time of Evaluation: 11:13 - Subjective Subjective: HOSPITALIST PROGRESS NOTE Pt is seen and examined at bedside. No acute events overnight. patient is able to walk with assistance to bathroom. She denies having any chills, fevers , CP, SOB, abd pain, N/V/D/C, dysuria. Objective - Vital Signs/Intake and Output Vital Signs (last 24 hours): Temp Pulse Resp BP Pulse Ox 98.7 F 57 L 20 135/55 L 95 01/20/17 06:00 01/20/17 10:28 01/20/17 06:00 01/20/17 10:28 01/20/17 06:00 Intake and Output: 01/20/17 01/20/17 06:59 18:59 Intake Total 371 Output Total 200 Balance 171 - Medications Medications: Current Medications Acetaminophen (Tylenol 325mg Tab) 650 mg PO Q6 PRN PRN Reason: Fever >100.4 F Albuterol/Ipratropium (Duoneb 3 Mg/0.5 Mg (3 Ml) Ud) 3 ml IH [id number] PRN PRN Reason: Shortness of Breath Alprazolam (Xanax) 0.25 mg PO Q6 PRN; Protocol PRN Reason: Agitation Stop: 01/25/17 10:37 Atenolol (Tenormin) 25 mg PO DAILY [facility] Last Admin: 01/20/17 10:28 Dose: Not Given Cefpodoxime Proxetil (Vantin) 200 mg PO Q12 [facility] PRN Reason: Protocol Cyclosporine (Restasis) 1 ea OU Q12 [facility] Last Admin: 01/20/17 10:57 Dose: 1 ea Fluoxetine HCl (Prozac) 40 mg PO DAILY [facility] Last Admin: 01/20/17 10:27 Dose: 40 mg Folic Acid (Folic Acid) 1 mg PO DAILY [facility] Last Admin: 01/20/17 10:27 Dose: 1 mg Gabapentin (Neurontin) 100 mg PO DAILY [facility] PRN Reason: Protocol Last Admin: 01/20/17 10:27 Dose: 100 mg Guaifenesin (Robitussin) 200 mg PO Q4H PRN PRN Reason: Cough and congestion Levothyroxine Sodium (Synthroid) 50 mcg PO QOTHERDAY [facility] Last Admin: 01/19/17 10:31 Dose: 50 mcg Levothyroxine Sodium (Synthroid) 75 mcg PO MWF [facility] Last Admin: 01/20/17 10:27 Dose: 75 mcg Magnesium Hydroxide (Milk Of Magnesia) 30 ml PO DAILY PRN PRN Reason: Constipation Last Admin: 01/18/17 22:58 Dose: 30 ml Meclizine HCl (Antivert) 25 mg PO DAILY [facility] Last Admin: 01/20/17 10:27 Dose: 25 mg Methylphenidate HCl (Ritalin) 5 mg PO BID [facility] Last Admin: 01/20/17 10:27 Dose: 5 mg Multivitamins (Thera Tab) 1 tab PO DAILY [facility] Last Admin: 01/20/17 10:27 Dose: 1 tab Ondansetron HCl (Zofran Inj) 4 mg IVP Q6 PRN PRN Reason: Nausea/Vomiting Pantoprazole Sodium (Protonix Inj) 40 mg IVP DAILY [facility] Last Admin: 01/20/17 11:06 Dose: Not Given Trazodone HCl (Desyrel) 50 mg PO HS [facility] Last Admin: 01/19/17 23:24 Dose: 50 mg - Labs Labs: 01/20/17 06:30 01/20/17 06:30 PT 10.7 Seconds (9.9-11.8) 01/19/17 07:00 INR 0.99 (0.93-1.08) 01/19/17 07:00 APTT 30.2 Seconds (23.7-30.8) 01/19/17 07:00 - Constitutional Appears: Non-toxic, No Acute Distress - Head Exam Head Exam: ATRAUMATIC - Eye Exam Eye Exam: EOMI - ENT Exam ENT Exam: Mucous Membranes Moist - Respiratory Exam Respiratory Exam: Clear to Ausculation Bilateral, NORMAL BREATHING PATTERN. absent: Rales, Rhonchi, Wheezes - Cardiovascular Exam Cardiovascular Exam: REGULAR RHYTHM, +S1, +S2. absent: Gallop, Rubs, Murmur - GI/Abdominal Exam GI & Abdominal Exam: Soft, Normal Bowel Sounds. absent: Distended, Firm, Guarding, Rigid, Tenderness - Extremities Exam Extremities Exam: absent: Pedal Edema, Tenderness - Neurological Exam Neurological Exam: Alert, Awake, Oriented x3 - Psychiatric Exam Psychiatric exam: Normal Affect, Normal Mood - Skin Skin Exam: Dry, Intact, Normal Color, Warm Assessment and Plan - Assessment and Plan (Free Text) Assessment: 71 year old female with past medical history of HTN, normal pressure hydrocephalus, rheumatoid arthiritis, chronic vertigo and hypothyroidism is admitted for fall. CT of head showed no interval or recurring intracranial hemorrhage, no cranial fractures. Patient did not exhibit any meningeal signs an no headache. On blood work, patient had normal WBC count and was afebrile. Ct of LE is negative for fractures. Knee xray and ankle xray are negative for fractures. I spoke with Dr. Willett about patient. He states that since there are no meningeal signs or headache present and patient is A&Ox 3, and normal WBC count and afebrile, most likely there is no infection at shunt site or intracranially. recommend admitting patient for observation. Dr. Liu's number is [phone]. S/P Fall vs. syncope likely secondary to hydrocephalus vs. infection vs. vasovagal (less likely) vs. arrhythmias (less likely) - Troponins and EKG are negative - Oorthostatic vital signs are normal - Carotid dopplers show 40-59% stenosis in B/L ICA - Procal is negative, ESR negative - Blood and urine cultures are pending - Cardiology is consulted - ID is consulted - Neurology is consulted UTI - Patient was started on vantin po bid Normal pressure hydrocephalus - Nurology, Dr. Kapadia is consulted. - Spoke with patient's neurosurgeon. Continue to monitor patient. Patient has follow up appointment next week with Dr. Willett. Rheumatoid arthritis - will continue home medications Celebrex and multivitamin and neurontin HTN - Will continue atenolol home medication Hypothyroidism - Will continue home medication synthroid .075 mg PO Q every other day, .05 mg PO MWF - TSH WNL T4 .76. - Will recheck Chronic vertigo - Continue home medication meclizine Anxiety - Will continue home medication alprazolam, trazadone and fluoxetine and ritalin Cough - Robitussin prn Prophylaxis SCDs Protonix Colace TCU eval is requested. Awaiting decision. Case discussed with attending, Dr. Yee <Eldon Yee - Last Filed: 01/20/17 14:43> Objective - Vital Signs/Intake and Output Vital Signs (last 24 hours): Temp Pulse Resp BP Pulse Ox 98.2 F 56 L 18 144/57 L 95 01/20/17 12:00 01/20/17 12:00 01/20/17 12:00 01/20/17 12:00 01/20/17 06:00 Intake and Output: 01/20/17 01/20/17 06:59 18:59 Intake Total 371 Output Total 200 Balance 171 - Medications Medications: Current Medications Acetaminophen (Tylenol 325mg Tab) 650 mg PO Q6 PRN PRN Reason: Fever >100.4 F Albuterol/Ipratropium (Duoneb 3 Mg/0.5 Mg (3 Ml) Ud) 3 ml IH [id number] PRN PRN Reason: Shortness of Breath Alprazolam (Xanax) 0.25 mg PO Q6 PRN; Protocol PRN Reason: Agitation Stop: 01/25/17 10:37 Atenolol (Tenormin) 25 mg PO DAILY [facility] Last Admin: 01/20/17 10:28 Dose: Not Given Cefpodoxime Proxetil (Vantin) 200 mg PO Q12 [facility] PRN Reason: Protocol Last Admin: 01/20/17 11:52 Dose: 200 mg Cyclosporine (Restasis) 1 ea OU Q12 [facility] Last Admin: 01/20/17 10:57 Dose: 1 ea Fluoxetine HCl (Prozac) 40 mg PO DAILY [facility] Last Admin: 01/20/17 10:27 Dose: 40 mg Folic Acid (Folic Acid) 1 mg PO DAILY [facility] Last Admin: 01/20/17 10:27 Dose: 1 mg Gabapentin (Neurontin) 100 mg PO DAILY [facility] PRN Reason: Protocol Last Admin: 01/20/17 10:27 Dose: 100 mg Guaifenesin (Robitussin) 200 mg PO Q4H PRN PRN Reason: Cough and congestion Levothyroxine Sodium (Synthroid) 50 mcg PO QOTHERDAY [facility] Last Admin: 01/19/17 10:31 Dose: 50 mcg Levothyroxine Sodium (Synthroid) 75 mcg PO MWF [facility] Last Admin: 01/20/17 10:27 Dose: 75 mcg Magnesium Hydroxide (Milk Of Magnesia) 30 ml PO DAILY PRN PRN Reason: Constipation Last Admin: 01/18/17 22:58 Dose: 30 ml Meclizine HCl (Antivert) 25 mg PO DAILY [facility] Last Admin: 01/20/17 10:27 Dose: 25 mg Methylphenidate HCl (Ritalin) 5 mg PO BID [facility] Last Admin: 01/20/17 10:27 Dose: 5 mg Multivitamins (Thera Tab) 1 tab PO DAILY [facility] Last Admin: 01/20/17 10:27 Dose: 1 tab Ondansetron HCl (Zofran Inj) 4 mg IVP Q6 PRN PRN Reason: Nausea/Vomiting Pantoprazole Sodium (Protonix Inj) 40 mg IVP DAILY [facility] Last Admin: 01/20/17 11:06 Dose: Not Given Trazodone HCl (Desyrel) 50 mg PO HS [facility] Last Admin: 01/19/17 23:24 Dose: 50 mg - Labs Labs: 01/20/17 06:30 01/20/17 06:30 PT 10.7 Seconds (9.9-11.8) 01/19/17 07:00 INR 0.99 (0.93-1.08) 01/19/17 07:00 APTT 30.2 Seconds (23.7-30.8) 01/19/17 07:00 Attending/Attestation - Attestation I have personally seen and examined this patient.: Yes I have fully participated in the care of the patient.: Yes I have reviewed all pertinent clinical information, including history, physical exam and plan: Yes Notes (Text): 01/20/17 14:41 Attending note; Patient seen and examined with resident. Patient is alert, awake and oriented. denies any fever or chills. CE negative. no orthostatic blood pressure changes. CT head if no acute findings. Chest x-ray is negative for infiltrates. Procalcitonin is negative. ESR is negative. positive UA.Started on po vantin. ID and Cardiology evaluationappreciated. neurology evaluation appreciated. PT evaluation appreciated. TCU recommended. Transfer to TCU on Monday. Case discussed with bottle caser in detail. patient will follow-up with PMD Dr. Joseph.
[2017-01-20] MEDS: Cefpodoxime (Vantin) 200 mg Tab PO SCH ×2 (11:52→22:18)
[2017-01-20 13:12] VITALS: RESP 18
[2017-01-21 08:17] LABS: ADD MANUAL DIFF? NO
[2017-01-21 08:24] LABS: BASO # 0.05 K/mm3 (0.0-2.0); BASO % 0.8 % (0.0-3.0); EOS # 0.3 (0.0-0.7); GRAN # 4.19 (1.4-6.5); GRAN % 64.7 % (50.0-68.0); HEMATOCRIT 38.7 % (36.0-48.0); LYMPH # 1.5 (1.2-3.4); LYMPH % 22.5 % (22.0-35.0); MEAN CELL VOLUME 93.3 fL (80.0-105.0); MEAN CORPUSCULAR HEMOGLOBIN 31.6 pg (25.0-35.0); MEAN CORPUSCULAR HGB CONC 33.9 g/dl (31.0-37.0); MEAN PLATELET VOLUME 9.9 fl (7.0-11.0); MONO # 0.5 (0.1-0.6); PLATELET COUNT 273 10^3/uL (120.0-450.0); RED CELL DISTRIBUTION WIDTH 14.8 % (11.5-14.5); WHITE BLOOD COUNT 6.5 10^3/ul (4.5-11.0)
[2017-01-21 08:31] LABS: ALB/GLOB RATIO 1.1 (1.1-1.8); ALKALINE PHOSPHATASE 86 U/L (38-133); ALT/SGPT 33 U/L (7-56); AST/SGOT 26 U/L (15-39); BILIRUBIN,TOTAL 0.7 mg/dL (0.2-1.3); BLOOD UREA NITROGEN 12 mg/dL (7-21); CALCIUM 9.5 mg/dL (8.4-10.5); CARBON DIOXIDE 25 mmol/L (21-33); CHLORIDE 103 mmol/L (98-107); GFR AFRICAN-AMERICAN > 60; GLUCOSE,RANDOM 90 mg/dL (70-110); SODIUM 138 mmol/L (132-148); TOTAL PROTEIN 7.5 g/dL (5.8-8.3)
[2017-01-21 08:47] LABS: FREE T4 0.75 ng/dL (0.78-2.19)
[2017-01-21 09:01] LABS: THYROID STIMULATING HORMONE 5.36 mIU/mL (0.46-4.68)
[2017-01-21] MEDS: Cefpodoxime (Vantin) 200 mg Tab PO SCH ×2 (09:50→21:15)
[2017-01-21] MEDS: Levothyroxine 50 MCG TAB PO SCH (09:51)
[2017-01-21] MEDS: Multivitamin Therapeutic Tab PO SCH (09:51)
[2017-01-21] MEDS: cycloSPORINE 0.05 % Opth Emulsion UD OU SCH ×2 (09:53→21:16)
--- NOTE | 2017-01-21 12:52 | PN ---
DATE: 01/21/2017 The patient seen earlier this morning. No fevers, no chills, no nausea, no vomiting. PHYSICAL EXAMINATION: VITAL SIGNS: Temperature is 98, blood pressure is 120/70, respiratory rate of 16. HEENT: Unremarkable. NECK: Supple. LUNGS: Have decreased breath sounds. HEART: Normal S1, S2. ABDOMEN: Soft, nontender. LABORATORY EXAMINATION: Reveals a white count of 6.5, hemoglobin of 13, platelets of 273. BUN of 12 , creatinine of 0.6. Urinalysis is noted. Influenza is negative. Microbiology reveals E. coli in t he urine. The blood cultures are no growth. E. coli is pansensitive. Dr. Yee's note is revie wed. ASSESSMENT AND PLAN: A 71-year-old female with hypertension, normal pressure hydrocephalus with a ve ntriculoperitoneal shunt, a history of rheumatoid arthritis, chronic vertigo and hypothyroidism, admi tted after a fall, now with Escherichia coli urinary tract infection. It is pansensitive Escherichia coli, may be able to switch to p.o. antibiotic to complete therapy. Aashish Sparks MD cc: [phone] TT: 01/21/2017 12:52:40 Confirmation # [id number] Dictation # [id number] tn
--- NOTE | 2017-01-21 13:12 | CP.PCM.PN ---
<Chelsea Covarrubias - Last Filed: 01/21/17 13:09> Subjective - Date & Time of Evaluation Date of Evaluation: 01/21/17 Time of Evaluation: 13:09 - Subjective Subjective: Hospitalist Progress Note Patient seen and examined at bedside. There were no acute overnight events. Patient has a lot of questions and concerns about her care. Answered questions thoroughly. Spoke with son and with PMD and understand plan of care. She denies CP, SOB, n/v/d, numbness/tingling. Objective - Vital Signs/Intake and Output Vital Signs (last 24 hours): Temp Pulse Resp BP Pulse Ox 97.8 F 53 L 18 156/80 H 96 01/21/17 08:00 01/21/17 08:00 01/21/17 08:00 01/21/17 09:52 01/21/17 11:20 Intake and Output: 01/21/17 01/21/17 06:59 18:59 Intake Total 240 Output Total 750 Balance -510 - Medications Medications: Current Medications Acetaminophen (Tylenol 325mg Tab) 650 mg PO Q6 PRN PRN Reason: Fever >100.4 F Albuterol/Ipratropium (Duoneb 3 Mg/0.5 Mg (3 Ml) Ud) 3 ml IH [id number] PRN PRN Reason: Shortness of Breath Alprazolam (Xanax) 0.25 mg PO Q6 PRN; Protocol PRN Reason: Agitation Stop: 01/25/17 10:37 Last Admin: 01/21/17 10:01 Dose: 0.25 mg Amlodipine Besylate (Norvasc) 5 mg PO DAILY [facility] Last Admin: 01/21/17 09:52 Dose: 5 mg Atenolol (Tenormin) 25 mg PO DAILY [facility] Last Admin: 01/21/17 09:54 Dose: Not Given Cefpodoxime Proxetil (Vantin) 200 mg PO Q12 [facility] PRN Reason: Protocol Last Admin: 01/21/17 09:50 Dose: 200 mg Cyclosporine (Restasis) 1 ea OU Q12 [facility] Last Admin: 01/21/17 09:53 Dose: 1 ea Fluoxetine HCl (Prozac) 40 mg PO DAILY [facility] Last Admin: 01/21/17 09:51 Dose: 40 mg Folic Acid (Folic Acid) 1 mg PO DAILY [facility] Last Admin: 01/21/17 09:52 Dose: 1 mg Gabapentin (Neurontin) 100 mg PO DAILY [facility] PRN Reason: Protocol Last Admin: 01/21/17 09:52 Dose: 100 mg Guaifenesin (Robitussin) 200 mg PO Q4H PRN PRN Reason: Cough and congestion Levothyroxine Sodium (Synthroid) 50 mcg PO QOTHERDAY [facility] Last Admin: 01/21/17 09:51 Dose: 50 mcg Levothyroxine Sodium (Synthroid) 75 mcg PO MWF [facility] Last Admin: 01/20/17 10:27 Dose: 75 mcg Magnesium Hydroxide (Milk Of Magnesia) 30 ml PO DAILY PRN PRN Reason: Constipation Last Admin: 01/18/17 22:58 Dose: 30 ml Meclizine HCl (Antivert) 25 mg PO DAILY [facility] Last Admin: 01/21/17 09:51 Dose: 25 mg Methylphenidate HCl (Ritalin) 5 mg PO BID [facility] Last Admin: 01/21/17 09:50 Dose: 5 mg Multivitamins (Thera Tab) 1 tab PO DAILY [facility] Last Admin: 01/21/17 09:51 Dose: 1 tab Ondansetron HCl (Zofran Inj) 4 mg IVP Q6 PRN PRN Reason: Nausea/Vomiting Pantoprazole Sodium (Protonix Inj) 40 mg IVP DAILY [facility] Last Admin: 01/21/17 09:56 Dose: Not Given Primidone (Mysoline) 50 mg PO DAILY [facility] Trazodone HCl (Desyrel) 50 mg PO HS [facility] Last Admin: 01/20/17 22:18 Dose: 50 mg - Labs Labs: 01/21/17 08:16 01/21/17 08:16 PT 10.7 Seconds (9.9-11.8) 01/19/17 07:00 INR 0.99 (0.93-1.08) 01/19/17 07:00 APTT 30.2 Seconds (23.7-30.8) 01/19/17 07:00 - Constitutional Appears: No Acute Distress - Head Exam Head Exam: ATRAUMATIC, NORMAL INSPECTION, NORMOCEPHALIC - Eye Exam Eye Exam: Normal appearance, PERRL Pupil Exam: NORMAL ACCOMODATION, PERRL - ENT Exam ENT Exam: Mucous Membranes Moist - Neck Exam Neck Exam: Full ROM - Respiratory Exam Respiratory Exam: Clear to Ausculation Bilateral, NORMAL BREATHING PATTERN. absent: Rales, Rhonchi, Wheezes - Cardiovascular Exam Cardiovascular Exam: REGULAR RHYTHM, +S1, +S2. absent: Gallop, Rubs - GI/Abdominal Exam GI & Abdominal Exam: Soft, Normal Bowel Sounds. absent: Rigid, Tenderness, Mass , Rebound - Extremities Exam Extremities Exam: Normal Inspection. absent: Calf Tenderness, Pedal Edema - Neurological Exam Neurological Exam: Alert, Awake, CN II-XII Intact - Psychiatric Exam Psychiatric exam: Normal Affect, Normal Mood - Skin Skin Exam: Dry, Normal Color, Warm Assessment and Plan - Assessment and Plan (Free Text) Assessment: This a 71Y F PMH HTN, NPH, RA, chornic vertigo and hypothyroidism admitted for fall. Plan: 1. Syncope s/p fall - secondary to normal pressure hydrocephalus versus UTI - Orthostatic negative, EKG and troponin normal - Carotid doppler showed 40-59% bilateral stenosis of ICA - Cardiology consulted-recs appreciated - Neuro consulted- recs appreciated - ID consulted- recs appreciated - PT suggests patient go to TCU for further rehab and gait training 2. UTI - Urine culture showed E.coli - Continue Vantin - Tylenol prn fever 3. Normal pressure Hydrocephalus - Neuro consulted- recs appreciated - Pt's Neurosurgeon (Dr. Willett) suggested to continue to monitor and f/u in 1 week 4. Rheumatoid arthritis - Continue Celebrex, Neurontin and Multivitamin 5. HTN - Bradycardia today - Atenolol only give if HR >55 - Started Norvasc 10mg qd 6. Hypothryoidism - Continue Synthroid 7. Vertigo (chronic) - Continue Meclizine 8. Anxiety - Continue Xanax, Trazodone, Fluxetine, and Ritalin GI ppx: Protonix DVT ppx: SCDs Dispo: Patient will be d/c to TCU in AM Case seen, discussed and reviewed with attending Tami Covarrubias PGY1 <Eldon Yee - Last Filed: 01/21/17 15:16> Objective - Vital Signs/Intake and Output Vital Signs (last 24 hours): Temp Pulse Resp BP Pulse Ox 97.8 F 53 L 18 156/80 H 96 01/21/17 08:00 01/21/17 08:00 01/21/17 08:00 01/21/17 09:52 01/21/17 11:20 Intake and Output: 01/21/17 01/21/17 06:59 18:59 Intake Total 240 Output Total 750 Balance -510 - Medications Medications: Current Medications Acetaminophen (Tylenol 325mg Tab) 650 mg PO Q6 PRN PRN Reason: Fever >100.4 F Albuterol/Ipratropium (Duoneb 3 Mg/0.5 Mg (3 Ml) Ud) 3 ml IH [id number] PRN PRN Reason: Shortness of Breath Alprazolam (Xanax) 0.25 mg PO Q6 PRN; Protocol PRN Reason: Agitation Stop: 01/25/17 10:37 Last Admin: 01/21/17 10:01 Dose: 0.25 mg Amlodipine Besylate (Norvasc) 5 mg PO DAILY [facility] Last Admin: 01/21/17 09:52 Dose: 5 mg Atenolol (Tenormin) 25 mg PO DAILY [facility] Last Admin: 01/21/17 09:54 Dose: Not Given Cefpodoxime Proxetil (Vantin) 200 mg PO Q12 [facility] PRN Reason: Protocol Last Admin: 01/21/17 09:50 Dose: 200 mg Cyclosporine (Restasis) 1 ea OU Q12 [facility] Last Admin: 01/21/17 09:53 Dose: 1 ea Fluoxetine HCl (Prozac) 40 mg PO DAILY [facility] Last Admin: 01/21/17 09:51 Dose: 40 mg Folic Acid (Folic Acid) 1 mg PO DAILY [facility] Last Admin: 01/21/17 09:52 Dose: 1 mg Gabapentin (Neurontin) 100 mg PO DAILY [facility] PRN Reason: Protocol Last Admin: 01/21/17 09:52 Dose: 100 mg Guaifenesin (Robitussin) 200 mg PO Q4H PRN PRN Reason: Cough and congestion Levothyroxine Sodium (Synthroid) 50 mcg PO QOTHERDAY [facility] Last Admin: 01/21/17 09:51 Dose: 50 mcg Levothyroxine Sodium (Synthroid) 75 mcg PO MWF [facility] Last Admin: 01/20/17 10:27 Dose: 75 mcg Magnesium Hydroxide (Milk Of Magnesia) 30 ml PO DAILY PRN PRN Reason: Constipation Last Admin: 01/18/17 22:58 Dose: 30 ml Meclizine HCl (Antivert) 25 mg PO DAILY [facility] Last Admin: 01/21/17 09:51 Dose: 25 mg Methylphenidate HCl (Ritalin) 5 mg PO BID [facility] Last Admin: 01/21/17 09:50 Dose: 5 mg Multivitamins (Thera Tab) 1 tab PO DAILY [facility] Last Admin: 01/21/17 09:51 Dose: 1 tab Ondansetron HCl (Zofran Inj) 4 mg IVP Q6 PRN PRN Reason: Nausea/Vomiting Pantoprazole Sodium (Protonix Inj) 40 mg IVP DAILY [facility] Last Admin: 01/21/17 09:56 Dose: Not Given Primidone (Mysoline) 50 mg PO DAILY [facility] Trazodone HCl (Desyrel) 50 mg PO HS [facility] Last Admin: 01/20/17 22:18 Dose: 50 mg - Labs Labs: 01/21/17 08:16 01/21/17 08:16 PT 10.7 Seconds (9.9-11.8) 01/19/17 07:00 INR 0.99 (0.93-1.08) 01/19/17 07:00 APTT 30.2 Seconds (23.7-30.8) 01/19/17 07:00 Attending/Attestation - Attestation I have personally seen and examined this patient.: Yes I have fully participated in the care of the patient.: Yes I have reviewed all pertinent clinical information, including history, physical exam and plan: Yes Notes (Text): 01/21/17 15:13 Attending note; Patient seen and examined with resident. Patient is alert, awake and oriented. denies any fever or chills. E. coli UTI on po vantin. ID and Cardiology evaluation appreciated. neurology evaluation appreciated. continue primodone for tremors. PT evaluation appreciated. TCU recommended. Transfer to TCU on Monday. Case discussed with porter sample case in detail. patient will follow-up with PMD Dr. Joseph. Case discussed with PMD in detail. Case discussed with patient's son in detail. Patient's questions answered and concerns addressed.
[2017-01-22 07:55] VITALS: BP 144/54; PULSE 61; TEMP 97.8; O2SAT 95
[2017-01-22 08:31] LABS: ADD MANUAL DIFF? NO
--- NOTE | 2017-01-22 08:33 | PN ---
DATE: 01/22/2017 The patient is in bed, seen in room 577, bed 2. No fevers and no chills. PHYSICAL EXAMINATION: VITAL SIGNS: Temperature is 98. Blood pressure is 120/54, respiratory rate of 18, heart rate of 64. HEENT: Unremarkable. NECK: Supple. LUNGS: Have decreased breath sounds. HEART: Normal S1, S2. ABDOMEN: Soft. LABORATORY EXAMINATION: Reveals a white count of 6.5 and hemoglobin of 13. Chemistries reveal the B UN of 12, creatinine of 0.6, and procalcitonin is 0.06. Urinalysis is noted. Serology is negative. Microbiology reveals E. coli, and is pansensitive in the urine. ASSESSMENT AND PLAN: A 71-year-old female with hypertension and normal pressure hydrocephalus with a ventriculoperitoneal shunt, history of rheumatoid arthritis and history of vertigo, and hypothyroidi sm, admitted after a fall with urinary Escherichia coli urinary tract infection that is pansensitive, now on p.o. Vantin to be completed. The patient is to be transferred to transitional care for physi colleen therapy. Aashish Sparks MD cc: [id number] TT: 01/22/2017 08:33:15 Confirmation # [id number] Dictation # [id number] demetrice
[2017-01-22 08:52] LABS: ALB/GLOB RATIO 1.2 (1.1-1.8); ALKALINE PHOSPHATASE 89 U/L (38-133); ALT/SGPT 36 U/L (7-56); AST/SGOT 25 U/L (15-39); BILIRUBIN,TOTAL 0.5 mg/dL (0.2-1.3); BLOOD UREA NITROGEN 11 mg/dL (7-21); CALCIUM 9.2 mg/dL (8.4-10.5); CARBON DIOXIDE 25 mmol/L (21-33); CHLORIDE 103 mmol/L (95-110); GFR AFRICAN-AMERICAN > 60; GLUCOSE,RANDOM 84 mg/dL (70-110); POTASSIUM 4.4 mmol/L (3.6-5.0); SODIUM 136 mmol/L (132-148)
[2017-01-22] MEDS: Multivitamin Therapeutic Tab PO SCH (09:58)
[2017-01-22] MEDS: Cefpodoxime (Vantin) 200 mg Tab PO SCH (09:58)
[2017-01-22] MEDS: cycloSPORINE 0.05 % Opth Emulsion UD OU SCH (09:59)
[2017-01-22 11:07] LABS: BASO # 0.04 K/mm3 (0.0-2.0); BASO % 0.6 % (0.0-3.0); EOS # 0.2 (0.0-0.7); EOS % 3.2 % (1.5-5.0); GRAN # 4.81 (1.4-6.5); GRAN % 70.4 % (50.0-68.0); HEMATOCRIT 38.4 % (36.0-48.0); LYMPH % 14.5 % (22.0-35.0); MEAN CELL VOLUME 94.3 fL (80.0-105.0); MEAN CORPUSCULAR HEMOGLOBIN 31.7 pg (25.0-35.0); MEAN CORPUSCULAR HGB CONC 33.6 g/dl (31.0-37.0); MEAN PLATELET VOLUME 9.8 fl (7.0-11.0); MONO # 0.8 (0.1-0.6); MONO % 11.3 % (1.0-6.0); PLATELET COUNT 288 10^3/uL (120.0-450.0); RED CELL DISTRIBUTION WIDTH 14.9 % (11.5-14.5); WHITE BLOOD COUNT 6.8 10^3/ul (4.5-11.0)
--- NOTE | 2017-01-22 11:18 | CP.PCM.DIS ---
<Chelsea Covarrubias - Last Filed: 01/22/17 11:14> Provider - Provider Date of Admission: 01/19/17 14:27 Attending physician: Eldon Yee MD Primary care physician: Aba Joseph MD Time Spent in preparation of Discharge (in minutes): 35 Hospital Course - Lab Results Lab Results: Most Recent Lab Values WBC 6.8 10^3/ul (4.5-11.0) 01/22/17 08:28 RBC 4.07 10^6/uL (3.5-6.1) 01/22/17 08:28 Hgb 12.9 gm/dL (12.0-16.0) 01/22/17 08:28 Hct 38.4 % (36.0-48.0) 01/22/17 08:28 MCV 94.3 fL (80.0-105.0) 01/22/17 08:28 MCH 31.7 pg (25.0-35.0) 01/22/17 08: MCHC 33.6 g/dl (31.0-37.0) 01/22/17 08:28 RDW 14.9 % (11.5-14.5) H 01/22/17 08:28 Plt Count 288 10^3/uL (120.0-450.0) 01/22/17 08:28 MPV 9.8 fl (7.0-11.0) 01/22/17 08:28 Gran % 70.4 % (50.0-68.0) H 01/22/17 08:28 Lymph % (Auto) 14.5 % (22.0-35.0) L 01/22/17 08:28 Clarke % (Auto) 11.3 % (1.0-6.0) H 01/22/17 08:28 Eos % (Auto) 3.2 % (1.5-5.0) 01/22/17 08:28 Baso % (Auto) 0.6 % (0.0-3.0) 01/22/17 08:28 Gran # 4.81 (1.4-6.5) 01/22/17 08:28 Lymph # 1.0 (1.2-3.4) L 01/22/17 08:28 Clarke # 0.8 (0.1-0.6) H 01/22/17 08:28 Eos # 0.2 (0.0-0.7) 01/22/17 08:28 Baso # 0.04 K/mm3 (0.0-2.0) 01/22/17 08:28 ESR 18 mm/hr (0.0-20.0) 01/18/17 10:35 PT 10.7 Seconds (9.9-11.8) 01/19/17 07:00 INR 0.99 (0.93-1.08) 01/19/17 07:00 APTT 30.2 Seconds (23.7-30.8) 01/19/17 07:00 Sodium 136 mmol/L (132-148) 01/22/17 08:28 Potassium 4.4 mmol/L (3.6-5.0) 01/22/17 08:28 Chloride 103 mmol/L (95-110) 01/22/17 08:28 Carbon Dioxide 25 mmol/L (21-33) 01/22/17 08:28 Anion Gap 12 (10-20) 01/22/17 08:28 BUN 11 mg/dL (7-21) 01/22/17 08:28 Creatinine 0.6 mg/dL (0.5-1.4) 01/22/17 08:28 Est GFR ( Amer) > 60 01/22/17 08:28 Est GFR (Non-Af Amer) > 60 01/22/17 08:28 POC Glucose (mg/dL) 109 mg/dL (65-110) 01/21/17 21:30 Random Glucose 84 mg/dL (70-110) 01/22/17 08:28 Calcium 9.2 mg/dL (8.4-10.5) 01/22/17 08:28 Phosphorus 4.2 mg/dL (2.5-4.5) 01/20/17 06:30 Magnesium 2.1 mg/dL (1.7-2.2) 01/20/17 06:30 Total Bilirubin 0.5 mg/dL (0.2-1.3) 01/22/17 08:28 AST 25 U/L (15-39) 01/22/17 08:28 ALT 36 U/L (7-56) 01/22/17 08:28 Alkaline Phosphatase 89 U/L (38-133) 01/22/17 08:28 Lactate Dehydrogenase 625 U/L (333-699) 01/18/17 06:53 Total Creatine Kinase 93 U/L (35-230) 01/18/17 06:53 Troponin I < 0.01 ng/mL 01/18/17 20:13 Total Protein 7.0 g/dL (5.8-8.3) 01/22/17 08:28 Albumin 3.8 g/dL (3.0-4.8) 01/22/17 08:28 Globulin 3.2 gm/dL 01/22/17 08:28 Albumin/Globulin Ratio 1.2 (1.1-1.8) 01/22/17 08:28 Procalcitonin 0.06 NG/ML (0.19-0.49) L 01/18/17 07:00 Free T4 0.75 ng/dL (0.78-2.19) L 01/21/17 08:16 TSH 3rd Generation 5.36 mIU/mL (0.46-4.68) H 01/21/17 08:16 Urine Color Yellow (YELLOW) 01/19/17 09:30 Urine Appearance Sl cloudy (CLEAR) 01/19/17 09:30 Urine pH 8.0 (4.7-8.0) 01/19/17 09:30 Ur Specific [place] 1.020 (1.005-1.035) 01/19/17 09:30 Urine Protein Negative mg/dL (<30 mg/dL) 01/19/17 09:30 Urine Glucose (UA) Negative mg/dL (NEGATIVE) 01/19/17 09:30 Urine Ketones Negative mg/dL (NEGATIVE) 01/19/17 09:30 Urine Blood Negative (NEGATIVE) 01/19/17 09:30 Urine Nitrate Negative (NEGATIVE) 01/19/17 09:30 Urine Bilirubin Negative (NEGATIVE) 01/19/17 09:30 Urine Urobilinogen 0.2 E.U./dL (<1 E.U./dL) 01/19/17 09:30 Ur Leukocyte Esterase Large Viktoria/uL (NEGATIVE) H 01/19/17 09:30 Urine RBC Negative /hpf (0-2) 01/19/17 09:30 Urine WBC 25 - 30 /hpf (0-6) 01/19/17 09:30 Urine Bacteria Many (NEG) 01/19/17 09:30 Influenza Typ A,B (EIA) Negative for flu a/b (NEGATIVE) 01/18/17 10:56 - Hospital Course Hospital Course: 71 year old female with past medical history of HTN, normal pressure hydrocephalus, rheumatoid arthiritis, chronic vertigo presents after having an episode of fall. Patient states that she woke up this morning at 4 am to use the bathroom and her legs felt weak and she collapsed on the floor. She denies having any LOC. She landed on her left sided and was on the ground for about half hour until she crawled to phone and called ambulance. Patient states that this has happened before a few months ago. For past week patient states that she has been "feeling sick". She complains of subjective chills, increased urinary frequency and LE weakness to the point where she can't walk as much for past week. She denies having any fevers, dysuria. Patient follows with neurosurgeon, Dr. Willett for her hydrocephalus. Patient had a shunt placed on 2000. She states that it was turned off due to clots that formed around it. At some later point, she had the shunt replaced. In November of 2015, patient had shunt turned back on. She has monthly CT scans done for evaluation. Patient was found to have subdural hemorrhage and had shunt turned off in November of 2016. She was suppose to follow up with another Ct scan this week and with Dr. Willett this month. In ED, CT scan of head shows no interval change of her hemorrhage, no fractures and shows shunt tip positioning same as before. Patient denies having any SAUNDERS, CP, SOB, abd pain, N/V/D, fevers or chills at this point. On admission CT of head showed no interval change or recurring intracranial hemorrhage, no cranial fracutres. It also showed chronic hydrocephalus with ventricular shunt insertion and midline shunt tip positioning as before. Patient also had CT of LE, knee xray and ankle xray which were all negative. After speaking with patient's neurosurgeon, Dr. Willett about patient's condition , patient was admitted for observation and further workup. Per Dr. Willett, patient symptoms were less likely due to intracranial infection because patient denies having any headaches, she was afebrile and no WBC elevation noted. Neurology, cardiology and ID were consulted. ID recommended not starting patient on prophylacitc antibiotics. Later on in her hospital stay, patient was positive for UTI and was started on antibiotics. Physical therapy was consulted and gradually, patient's weakness and other symptoms improved. Patient will be d/c to TCU for further strengthening. She will complete 5 more days of her antibiotics PO Vantin and continue her other medications. - Date & Time of H&P Date of H&P: 01/18/17 Time of H&P: 10:00 Discharge Exam - Head Exam Head Exam: ATRAUMATIC, NORMAL INSPECTION, NORMOCEPHALIC - Eye Exam Eye Exam: Normal appearance Pupil Exam: NORMAL ACCOMODATION - ENT Exam ENT Exam: Mucous Membranes Moist - Respiratory Exam Respiratory Exam: Clear to PA & Lateral, NORMAL BREATHING PATTERN, UNREMARKABLE. absent: Rales, Rhonchi, Wheezes - Cardiovascular Exam Cardiovascular Exam: REGULAR RHYTHM, +S1, +S2. absent: Gallop, Rubs, Systolic Murmur - GI/Abdominal Exam GI & Abdominal Exam: Normal Bowel Sounds, Soft, Unremarkable. absent: Mass, Rebound, Rigid, Tenderness - Extremities Exam Extremities exam: normal inspection - Neurological Exam Neurological exam: Alert, CN II-XII Intact - Psychiatric Exam Psychiatric exam: Normal Affect, Normal Mood - Skin Skin Exam: Dry, Normal Color, Warm Discharge Plan - Follow Up Plan Condition: STABLE Disposition: REHAB FACILITY/REHAB UNIT Instructions: Syncope (GEN), Fall Prevention for Older Adults (GEN), Hydrocephalus (DC) Additional Instructions: Patient is to follow up with PMD, Dr. Joseph upon discharge. Patient is to follow up with neurosurgeon, Dr. Willett upon discharge. Atenolol changed to Norvasc for low HR. Referrals: Aba Joseph MD [Primary Care Provider] - <Eldon Yee - Last Filed: 01/22/17 13:30> Provider - Provider Date of Admission: 01/19/17 14:27 Attending physician: Eldon Yee MD Primary care physician: Aba Joseph MD Hospital Course - Lab Results Lab Results: Most Recent Lab Values WBC 6.8 10^3/ul (4.5-11.0) 01/22/17 08:28 RBC 4.07 10^6/uL (3.5-6.1) 01/22/17 08:28 Hgb 12.9 gm/dL (12.0-16.0) 01/22/17 08:28 Hct 38.4 % (36.0-48.0) 01/22/17 08:28 MCV 94.3 fL (80.0-105.0) 01/22/17 08:28 MCH 31.7 pg (25.0-35.0) 01/22/17 08: MCHC 33.6 g/dl (31.0-37.0) 01/22/17 08: RDW 14.9 % (11.5-14.5) H 01/22/17 08:28 Plt Count 288 10^3/uL (120.0-450.0) 01/22/17 08: MPV 9.8 fl (7.0-11.0) 01/22/17 08: Gran % 70.4 % (50.0-68.0) H 01/22/17 08:28 Lymph % (Auto) 14.5 % (22.0-35.0) L 01/22/17 08:28 Clarke % (Auto) 11.3 % (1.0-6.0) H 01/22/17 08:28 Eos % (Auto) 3.2 % (1.5-5.0) 01/22/17 08: Baso % (Auto) 0.6 % (0.0-3.0) 01/22/17 08:28 Gran # 4.81 (1.4-6.5) 01/22/17 08: Lymph # 1.0 (1.2-3.4) L 01/22/17 08:28 Clarke # 0.8 (0.1-0.6) H 01/22/17 08:28 Eos # 0.2 (0.0-0.7) 01/22/17 08: Baso # 0.04 K/mm3 (0.0-2.0) 01/22/17 08: ESR 18 mm/hr (0.0-20.0) 01/18/17 10:35 PT 10.7 Seconds (9.9-11.8) 01/19/17 07:00 INR 0.99 (0.93-1.08) 01/19/17 07:00 APTT 30.2 Seconds (23.7-30.8) 01/19/17 07:00 Sodium 136 mmol/L (132-148) 01/22/17 08:28 Potassium 4.4 mmol/L (3.6-5.0) 01/22/17 08:28 Chloride 103 mmol/L (95-110) 01/22/17 08:28 Carbon Dioxide 25 mmol/L (21-33) 01/22/17 08:28 Anion Gap 12 (10-20) 01/22/17 08:28 BUN 11 mg/dL (7-21) 01/22/17 08:28 Creatinine 0.6 mg/dL (0.5-1.4) 01/22/17 08:28 Est GFR ( Amer) > 60 01/22/17 08:28 Est GFR (Non-Af Amer) > 60 01/22/17 08:28 POC Glucose (mg/dL) 93 mg/dL (65-110) 01/22/17 11:41 Random Glucose 84 mg/dL (70-110) 01/22/17 08:28 Calcium 9.2 mg/dL (8.4-10.5) 01/22/17 08:28 Phosphorus 4.2 mg/dL (2.5-4.5) 01/20/17 06:30 Magnesium 2.1 mg/dL (1.7-2.2) 01/20/17 06:30 Total Bilirubin 0.5 mg/dL (0.2-1.3) 01/22/17 08:28 AST 25 U/L (15-39) 01/22/17 08:28 ALT 36 U/L (7-56) 01/22/17 08:28 Alkaline Phosphatase 89 U/L (38-133) 01/22/17 08:28 Lactate Dehydrogenase 625 U/L (333-699) 01/18/17 06:53 Total Creatine Kinase 93 U/L (35-230) 01/18/17 06:53 Troponin I < 0.01 ng/mL 01/18/17 20:13 Total Protein 7.0 g/dL (5.8-8.3) 01/22/17 08:28 Albumin 3.8 g/dL (3.0-4.8) 01/22/17 08:28 Globulin 3.2 gm/dL 01/22/17 08:28 Albumin/Globulin Ratio 1.2 (1.1-1.8) 01/22/17 08:28 Procalcitonin 0.06 NG/ML (0.19-0.49) L 01/18/17 07:00 Free T4 0.75 ng/dL (0.78-2.19) L 01/21/17 08:16 TSH 3rd Generation 5.36 mIU/mL (0.46-4.68) H 01/21/17 08:16 Urine Color Yellow (YELLOW) 01/19/17 09:30 Urine Appearance Sl cloudy (CLEAR) 01/19/17 09:30 Urine pH 8.0 (4.7-8.0) 01/19/17 09:30 Ur Specific [place] 1.020 (1.005-1.035) 01/19/17 09:30 Urine Protein Negative mg/dL (<30 mg/dL) 01/19/17 09:30 Urine Glucose (UA) Negative mg/dL (NEGATIVE) 01/19/17 09:30 Urine Ketones Negative mg/dL (NEGATIVE) 01/19/17 09:30 Urine Blood Negative (NEGATIVE) 01/19/17 09:30 Urine Nitrate Negative (NEGATIVE) 01/19/17 09:30 Urine Bilirubin Negative (NEGATIVE) 01/19/17 09:30 Urine Urobilinogen 0.2 E.U./dL (<1 E.U./dL) 01/19/17 09:30 Ur Leukocyte Esterase Large Viktoria/uL (NEGATIVE) H 01/19/17 09:30 Urine RBC Negative /hpf (0-2) 01/19/17 09:30 Urine WBC 25 - 30 /hpf (0-6) 01/19/17 09:30 Urine Bacteria Many (NEG) 01/19/17 09:30 Influenza Typ A,B (EIA) Negative for flu a/b (NEGATIVE) 01/18/17 10:56 Attending/Attestation - Attestation I have personally seen and examined this patient.: Yes I have fully participated in the care of the patient.: Yes I have reviewed all pertinent clinical information, including history, physical exam and plan: Yes Notes (Text): 01/22/17 13:29 Attending note; Patient seen and examined with resident. Patient is alert, awake and oriented. denies any fever or chills. E. coli UTI on po vantin. ID and Cardiology evaluation appreciated. neurology evaluation appreciated. continue primodone for tremors. PT evaluation appreciated. TCU recommended. Transfer to TCU today. patient will follow-up with PMD Dr. Joseph. Diagnosis; Gait instability History of normal pressure hydrocephalus. Escherichia coli UTI Hypertension
--- NOTE | 2017-01-25 07:14 | PQF GENQUE ---
This form is a permanent part of the medical record Dr. Yee, Patient presented with syncope on admission. Please verify the caused of syncope. Thank you. Clarification of your documentation is requested to better reflect the severity of illness and intensity of treatment of your patient. Indicators present [] Specify: [] [] Specify: [] [] Specify: [] [] Specify: [] Location in the medical record that reflects the above clinical findings: [] Treatment Provided: [] PHYSICIAN'S RESPONSE Based on your medical judgment of the clinical indicators outlined above please clarify the following: [] Practitioner response [] If unable to determine, please check the box, sign and date. Present On Admission (POA) Indicator: [x] Present at the time of admission Patient presents with vertigo and fall. [] Not present at the time of admission [] Clinically Undetermined In responding to this query, please exercise your independent professional judgment. The fact that a question is asked does not imply that any particular answer is desired or expected. Thank you for your clarification on this documentation. If you have any questions please call:[ ] * Thank you, [ ]ESTHELA ALLENpin cleaner MEG
== END 2017-01-22 15:59 | DRG 149 ==
LOC: ED 05:08 → ERH 09:20 → 2RSO 10:57 → OBSVTOIN 01-19 14:27 → 5RSO 01-20 19:44
PROVIDERS: ADMIT Internal Medicine; ATTEND Internal Medicine
DX: R42 Dizziness and giddiness (principal); R55 Syncope and collapse; G91.2 (Idiopathic) normal pressure hydrocephalus; N39.0 Urinary tract infection, site not specified; B96.20 Unspecified Escherichia coli [E. coli] as the cause of diseases classified elsewhere; M06.9 Rheumatoid arthritis, unspecified; I10 Essential (primary) hypertension; E03.9 Hypothyroidism, unspecified; F41.9 Anxiety disorder, unspecified; H54.8 Legal blindness, as defined in USA; R26.89 Other abnormalities of gait and mobility; I25.10 Atherosclerotic heart disease of native coronary artery without angina pectoris; F32.9 Major depressive disorder, single episode, unspecified; R05 Cough; Z91.81 History of falling; Z98.2 Presence of cerebrospinal fluid drainage device; Z88.2 Allergy status to sulfonamides; Z87.891 Personal history of nicotine dependence; R25.1 Tremor, unspecified

== ENCOUNTER 2017-01-22 16:02 | Inpatient (IN) | payer OTHER, MEDICARE ==
[2017-01-22] MEDS ORDERED: guaiFENesin 200 mg/10 ml Syrup UD PO PRN (16:07)
[2017-01-22] MEDS ORDERED: Albuterol-Ipratrop 3 mg / 0.5 (3 ml) UD IH PRN (16:07)
[2017-01-22 16:12] VITALS: BMI 33.8
[2017-01-22] MEDS: Magnesium Hydroxide Susp 30 ml UD PO PRN (21:34)
[2017-01-22] MEDS: Cefpodoxime (Vantin) 200 mg Tab PO SCH (21:35)
[2017-01-22] MEDS: cycloSPORINE 0.05 % Opth Emulsion UD OU SCH (21:37)
[2017-01-23] MEDS: Levothyroxine 75 MCG TAB PO SCH (05:47)
[2017-01-23 06:44] LABS: ADD MANUAL DIFF? NO
[2017-01-23 07:16] LABS: ALB/GLOB RATIO 1.2 (1.1-1.8); ALKALINE PHOSPHATASE 77 U/L (38-133); ALT/SGPT 37 U/L (7-56); AST/SGOT 22 U/L (15-39); BILIRUBIN,TOTAL 0.6 mg/dL (0.2-1.3); BLOOD UREA NITROGEN 15 mg/dL (7-21); CALCIUM 8.8 mg/dL (8.4-10.5); CARBON DIOXIDE 29 mmol/L (21-33); CHLORIDE 100 mmol/L (98-107); GFR AFRICAN-AMERICAN > 60; GLUCOSE,RANDOM 88 mg/dL (70-110); POTASSIUM 4.3 mmol/L (3.6-5.0); SODIUM 137 mmol/L (132-148); TOTAL PROTEIN 6.6 g/dL (5.8-8.3)
[2017-01-23 07:17] LABS: BASO # 0.04 K/mm3 (0.0-2.0); BASO % 0.7 % (0.0-3.0); EOS # 0.3 (0.0-0.7); EOS % 4.6 % (1.5-5.0); GRAN # 3.15 (1.4-6.5); GRAN % 55.7 % (50.0-68.0); HEMATOCRIT 35.3 % (36.0-48.0); LYMPH # 1.4 (1.2-3.4); LYMPH % 24.2 % (22.0-35.0); MEAN CELL VOLUME 94.9 fL (80.0-105.0); MEAN CORPUSCULAR HEMOGLOBIN 31.5 pg (25.0-35.0); MEAN CORPUSCULAR HGB CONC 33.1 g/dl (31.0-37.0); MONO # 0.8 (0.1-0.6); MONO % 14.8 % (1.0-6.0); PLATELET COUNT 241 10^3/uL (120.0-450.0); RED CELL DISTRIBUTION WIDTH 14.9 % (11.5-14.5); WHITE BLOOD COUNT 5.7 10^3/ul (4.5-11.0)
--- NOTE | 2017-01-23 09:18 | CP.PCM.HP ---
<Evita Rodriguez - Last Filed: 01/23/17 14:33> History of Present Illness - History of Present Illness History of Present Illness: 71 year old female with past medical history of HTN, normal pressure hydrocephalus with shunt placement which is currently off, rheumatoid arthiritis , chronic vertigo is admitted to TCU for rehabilitation. [place] [facility] for fall that she experienced [place] her home. On admission to hospital, CT of head showed no interval change or recurring intracranial hemorrhage, no cranial fracutres. It also showed chronic hydrocephalus with ventricular shunt insertion and midline shunt tip positioning as before. Patient also had CT of LE, knee xray and ankle xray which were all negative. After speaking with patient's neurosurgeon, Dr. Willett about patient's condition , patient was admitted for observation and further workup. Per Dr. Willett, patient symptoms were less likely due to intracranial infection because patient denies having any headaches, she was afebrile and no WBC elevation noted. Neurology, cardiology and ID were consulted. ID recommended not starting patient on prophylacitc antibiotics. Later on in her hospital stay, patient was positive for UTI and was started on antibiotics. Physical therapy was consulted and gradually, patient's weakness and other symptoms improved and now she is transferred to TCU. Currently patient denies having fevers, chills, CP, SOB, abd pain, N/V/D/C or urinary symptoms. Patient is tolerating diet and having regular bowel movements. Patient states that she is ambulating without difficulty and does not feel lightheaded. PMHx: stated above Sx: intracranial shunt placement, L LE arthroplasty Allergies: sulfa antibiotics, eye antibiotics Meds: see nov PMD: Dr. sims Neurosurgeon: Dr. Edouard Neurologist: Dr. Theodore Torpedo Shooter: Dr. Raines Social: no tobacco, ETOH or drug use Present on Admission - Present on Admission Any Indicators Present on Admission: No Review of Systems - Review of Systems All systems: reviewed and no additional remarkable complaints except Past Patient History - Infectious Disease Hx of Infectious Diseases: None - Tetanus Immunizations Tetanus Immunization: Unknown - Past Social History Smoking Status: Former Smoker Chewing Tobacco Use: No Cigar Use: No Alcohol: None Drugs: Denies Home Situation {Lives}: Alone - CARDIAC Hx Hypertension: Yes - PULMONARY Hx Respiratory Disorders: No - NEUROLOGICAL Hx Dizziness: Yes Other/Comment: hydrocephalus blood clots in her brain revision to the shunt in her brain. 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 - HEENT Hx Blind: Yes Hx Macular Degeneration: Yes Other/Comment: LEGALLY BLIND - RENAL Hx Chronic Kidney Disease: No - ENDOCRINE/METABOLIC Hx Hypothyroidism: Yes - HEMATOLOGICAL/ONCOLOGICAL Hx Anemia: Yes (PLT transfusion 4 yrs ago w b/l knee repl) Hx Cancer: No - INTEGUMENTARY Hx Dermatological Problems: No - MUSCULOSKELETAL/RHEUMATOLOGICAL Hx Falls: Yes - GASTROINTESTINAL Hx Gastrointestinal Disorders: Yes - GENITOURINARY/GYNECOLOGICAL Hx Genitourinary Disorders: Yes (INCONTINENT) - PSYCHIATRIC Hx Anxiety: Yes Hx Depression: Yes - SURGICAL HISTORY Hx Joint Replacement: Yes Hx Orthopedic Surgery: Yes Other/Comment: brain shunt - ANESTHESIA Hx Anesthesia: Yes Hx Anesthesia Reactions: No Hx Malignant Hyperthermia: No Meds Allergies/Adverse Reactions: Allergies Allergy/AdvReac Type Severity Reaction Status Date / Time Sulfa (Sulfonamide Allergy RASH Verified 01/22/17 16:11 Antibiotics) eye antibiotic Allergy SWELLING Uncoded 01/22/17 16:11 Physical Exam - Constitutional Appears: Non-toxic, No Acute Distress - Head Exam Head Exam: ATRAUMATIC - ENT Exam ENT Exam: Mucous Membranes Moist - Respiratory Exam Respiratory Exam: Clear to Auscultation Bilateral, NORMAL BREATHING PATTERN. absent: Rales, Rhonchi, Wheezes - Cardiovascular Exam Cardiovascular Exam: REGULAR RHYTHM, RRR, +S1, +S2. absent: Diastolic murmur, Gallop, Rubs, Systolic Murmur - GI/Abdominal Exam GI & Abdominal Exam: Normal Bowel Sounds, Soft. absent: Distended, Firm, Guarding, Rebound, Rigid, Tenderness - Extremities Exam Extremities exam: Negative for: pedal edema, tenderness - Neurological Exam Neurological exam: Alert, Oriented x3 - Psychiatric Exam Psychiatric exam: Normal Affect, Normal Mood - Skin Skin Exam: Dry, Intact, Normal Color, Warm Results - Vital Signs Recent Vital Signs: Last Vital Signs Temp 98.1 F 01/22/17 16:05 Pulse 69 01/22/17 16:05 Resp 18 01/22/17 17:49 BP 119/68 01/22/17 16:05 Pulse Ox 101 H 01/22/17 16:05 - Labs Result Diagrams: 01/23/17 06:30 01/23/17 06:30 Labs: Laboratory Results - last 24 hr 01/22/17 01/23/17 01/23/17 21:17 06:30 06:30 WBC 5.7 RBC 3.72 Hgb 11.7 L Hct 35.3 L MCV 94.9 MCH 31.5 MCHC 33.1 RDW 14.9 H Plt Count 241 MPV 10.0 Gran % 55.7 Lymph % (Auto) 24.2 [place] % (Auto) 14.8 H Eos % (Auto) 4.6 Baso % (Auto) 0.7 Gran # 3.15 Lymph # 1.4 [place] # 0.8 H Eos # 0.3 Baso # 0.04 Sodium 137 Potassium 4.3 Chloride 100 Carbon Dioxide 29 Anion Gap 12 BUN 15 Creatinine 0.7 Est GFR ( Amer) > 60 Est GFR (Non-Af Amer) > 60 POC Glucose (mg/dL) 104 Random Glucose 88 Calcium 8.8 Total Bilirubin 0.6 AST 22 ALT 37 Alkaline Phosphatase 77 Total Protein 6.6 Albumin 3.6 Globulin 3.0 Albumin/Globulin Ratio 1.2 Assessment & Plan - Assessment and Plan (Free Text) Assessment: This a 71Y F PMH HTN, NPH, RA, chronic vertigo and hypothyroidism admitted for fall. Plan: 1. Syncope s/p fall - secondary to normal pressure hydrocephalus versus UTI - Patient will work with physical therapy for strength and gait training 2. UTI - Urine culture showed E.coli - Continue Vantin - Tylenol prn fever 3. Normal pressure Hydrocephalus - Will continue to monitor. - Patient will follow up with neurosurgeon Dr. Willett outpatient 4. Rheumatoid arthritis - Continue Celebrex, Neurontin and Multivitamin 5. HTN - Atenolol only give if HR >55 - Started Norvasc 10mg qd 6. Hypothryoidism - Continue Synthroid 7. Vertigo (chronic) - Continue Meclizine 8. Anxiety - Continue Xanax, Trazodone, Fluxetine, and Ritalin GI ppx: Protonix DVT ppx: SCDs Case discussed with attending Dr. Leon - Date & Time Date: 01/23/17 Time: 09:20 <Suleiman Leon - Last Filed: 01/23/17 16:48> Results - Vital Signs Recent Vital Signs: Last Vital Signs Temp 97.5 F L 01/23/17 16:00 Pulse 60 01/23/17 16:00 Resp 18 01/23/17 16:00 BP 131/60 01/23/17 16:00 Pulse Ox 95 01/23/17 16:00 - Labs Result Diagrams: 01/23/17 06:30 01/23/17 06:30 Labs: Laboratory Results - last 24 hr 01/22/17 01/23/17 01/23/17 21:17 06:30 06:30 WBC 5.7 RBC 3.72 Hgb 11.7 L Hct 35.3 L MCV 94.9 MCH 31.5 MCHC 33.1 RDW 14.9 H Plt Count 241 MPV 10.0 Gran % 55.7 Lymph % (Auto) 24.2 [place] % (Auto) 14.8 H Eos % (Auto) 4.6 Baso % (Auto) 0.7 Gran # 3.15 Lymph # 1.4 [place] # 0.8 H Eos # 0.3 Baso # 0.04 Sodium 137 Potassium 4.3 Chloride 100 Carbon Dioxide 29 Anion Gap 12 BUN 15 Creatinine 0.7 Est GFR ( Amer) > 60 Est GFR (Non-Af Amer) > 60 POC Glucose (mg/dL) 104 Random Glucose 88 Calcium 8.8 Total Bilirubin 0.6 AST 22 ALT 37 Alkaline Phosphatase 77 Total Protein 6.6 Albumin 3.6 Globulin 3.0 Albumin/Globulin Ratio 1.2 Attending/Attestation - Attestation I have personally seen and examined this patient.: Yes I have fully participated in the care of the patient.: Yes I have reviewed all pertinent clinical information: Yes Notes (Text): I have seen and examined the patient at bedside. Agree with the note above. This is 71 year old female with history of HTN, NPH, Rheumatoid arthritis, chronic vertigo who presented after a fall and found to have EColi UTI. Reports that she is still off balance however denies any other complaints. Continue po vantin. Patient just gets 2 days of home care services. Will discuss with case picker. Upon discharge patient will follow up with Dr Heaton. Dr Suleiman Leon
[2017-01-23] MEDS: cycloSPORINE 0.05 % Opth Emulsion UD OU SCH ×2 (09:51→22:17)
[2017-01-23] MEDS: Multivitamin Therapeutic Tab PO SCH (09:53)
[2017-01-23] MEDS: Cefpodoxime (Vantin) 200 mg Tab PO SCH ×2 (10:06→22:17)
[2017-01-24] MEDS: Pantoprazole 40 mg EC Tab PO SCH (06:02)
[2017-01-24] MEDS: Levothyroxine 50 MCG TAB PO SCH (06:02)
[2017-01-24] MEDS ORDERED: Pantoprazole 40 mg EC Tab PO SCH (07:30)
[2017-01-24] MEDS: cycloSPORINE 0.05 % Opth Emulsion UD OU SCH ×2 (11:13→22:42)
[2017-01-24] MEDS: Cefpodoxime (Vantin) 200 mg Tab PO SCH ×2 (11:14→22:43)
[2017-01-24] MEDS: Multivitamin Therapeutic Tab PO SCH (11:14)
[2017-01-24] MEDS: Magnesium Hydroxide Susp 30 ml UD PO PRN (18:56)
[2017-01-25] MEDS: Levothyroxine 75 MCG TAB PO SCH (05:55)
[2017-01-25] MEDS: Pantoprazole 40 mg EC Tab PO SCH (05:55)
[2017-01-25 10:32] LABS: ADD MANUAL DIFF? NO
[2017-01-25 10:35] LABS: BASO # 0.03 K/mm3 (0.0-2.0); BASO % 0.5 % (0.0-3.0); EOS # 0.2 (0.0-0.7); EOS % 2.3 % (1.5-5.0); GRAN # 4.53 (1.4-6.5); GRAN % 68.8 % (50.0-68.0); LYMPH # 1.3 (1.2-3.4); LYMPH % 19.1 % (22.0-35.0); MEAN CELL VOLUME 95.5 fL (80.0-105.0); MEAN CORPUSCULAR HEMOGLOBIN 31.8 pg (25.0-35.0); MEAN CORPUSCULAR HGB CONC 33.3 g/dl (31.0-37.0); MEAN PLATELET VOLUME 9.5 fl (7.0-11.0); MONO # 0.6 (0.1-0.6); MONO % 9.3 % (1.0-6.0); PLATELET COUNT 270 10^3/uL (120.0-450.0); RED CELL DISTRIBUTION WIDTH 15.1 % (11.5-14.5); WHITE BLOOD COUNT 6.6 10^3/ul (4.5-11.0)
[2017-01-25 10:44] LABS: ALB/GLOB RATIO 1.2 (1.1-1.8); ALKALINE PHOSPHATASE 81 U/L (38-133); ALT/SGPT 38 U/L (7-56); AST/SGOT 27 U/L (15-39); BILIRUBIN,TOTAL 0.4 mg/dL (0.2-1.3); BLOOD UREA NITROGEN 13 mg/dL (7-21); CALCIUM 8.9 mg/dL (8.4-10.5); CARBON DIOXIDE 28 mmol/L (21-33); CHLORIDE 98 mmol/L (95-110); GFR AFRICAN-AMERICAN > 60; GLUCOSE,RANDOM 101 mg/dL (70-110); POTASSIUM 4.6 mmol/L (3.6-5.0); SODIUM 135 mmol/L (132-148); TOTAL PROTEIN 7.1 g/dL (5.8-8.3)
[2017-01-25] MEDS: cycloSPORINE 0.05 % Opth Emulsion UD OU SCH ×2 (11:01→21:39)
[2017-01-25] MEDS: Multivitamin Therapeutic Tab PO SCH (11:08)
[2017-01-25] MEDS: Cefpodoxime (Vantin) 200 mg Tab PO SCH ×2 (11:09→21:39)
[2017-01-25] MEDS: POLYETHYLENE GLYCOL 3350 17 GM/Dose PACKET PO SCH (17:16)
--- NOTE | 2017-01-25 18:21 | CP.PCM.PN ---
<Ruddy Hirsch - Last Filed: 01/25/17 18:18> Subjective - Date & Time of Evaluation Date of Evaluation: 01/25/17 Time of Evaluation: 07:45 - Subjective Subjective: 71 year old female with past medical history of HTN, normal pressure hydrocephalus with shunt placement which is currently off, rheumatoid arthiritis , chronic vertigo is admitted to TCU for rehabilitation. Today, patient denies having fevers, chills, CP, SOB, abd pain, N/V/D/C or urinary symptoms. Patient is tolerating diet and is continuing to work with physical therapy. Objective - Vital Signs/Intake and Output Vital Signs (last 24 hours): Temp Pulse Resp BP Pulse Ox 98 F 55 L 18 128/61 96 01/25/17 16:00 01/25/17 16:00 01/25/17 16:00 01/25/17 16:00 01/25/17 16:00 - Medications Medications: Current Medications Acetaminophen (Tylenol 325mg Tab) 650 mg PO Q6 PRN; Protocol PRN Reason: Fever >100.4 F Albuterol/Ipratropium (Duoneb 3 Mg/0.5 Mg (3 Ml) Ud) 3 ml IH [id number] PRN; Protocol PRN Reason: Shortness of Breath Alprazolam (Xanax) 0.25 mg PO Q6 PRN; Protocol PRN Reason: Agitation Stop: 01/29/17 16:08 Last Admin: 01/25/17 17:58 Dose: 0.25 mg Atenolol (Tenormin) 25 mg PO DAILY [facility] PRN Reason: Protocol Last Admin: 01/25/17 11:08 Dose: 25 mg Cefpodoxime Proxetil (Vantin) 200 mg PO Q12 [facility] PRN Reason: Protocol Last Admin: 01/25/17 11:09 Dose: 200 mg Cyclosporine (Restasis) 1 ea OU Q12 [facility] PRN Reason: Protocol Last Admin: 01/25/17 11:01 Dose: 1 ea Fluoxetine HCl (Prozac) 40 mg PO DAILY [facility] PRN Reason: Protocol Last Admin: 01/25/17 11:00 Dose: 40 mg Folic Acid (Folic Acid) 1 mg PO DAILY [facility] PRN Reason: Protocol Last Admin: 01/25/17 10:57 Dose: 1 mg Gabapentin (Neurontin) 100 mg PO DAILY [facility] PRN Reason: Protocol Last Admin: 01/25/17 10:58 Dose: 100 mg Guaifenesin (Robitussin) 200 mg PO Q4H PRN; Protocol PRN Reason: Cough and congestion Levothyroxine Sodium (Synthroid) 50 mcg PO TTS@0630 [facility] PRN Reason: Protocol Last Admin: 01/24/17 06:02 Dose: 50 mcg Levothyroxine Sodium (Synthroid) 75 mcg PO MWF@0630 [facility] PRN Reason: Protocol Last Admin: 01/25/17 05:55 Dose: 75 mcg Levothyroxine Sodium (Synthroid) 50 mcg PO SUN@0630 [facility] PRN Reason: Protocol Magnesium Hydroxide (Milk Of Magnesia) 30 ml PO DAILY PRN; Protocol PRN Reason: Constipation Last Admin: 01/24/17 18:56 Dose: 30 ml Meclizine HCl (Antivert) 25 mg PO DAILY [facility] PRN Reason: Protocol Last Admin: 01/25/17 10:56 Dose: 25 mg Methylphenidate HCl (Ritalin) 5 mg PO BID [facility] PRN Reason: Protocol Last Admin: 01/25/17 17:19 Dose: 5 mg Multivitamins (Thera Tab) 1 tab PO DAILY [facility] PRN Reason: Protocol Last Admin: 01/25/17 11:08 Dose: 1 tab Ondansetron HCl (Zofran Inj) 4 mg IVP Q6 PRN; Protocol PRN Reason: Nausea/Vomiting Pantoprazole Sodium (Protonix Ec Tab) 40 mg PO 0630 [facility] Last Admin: 01/25/17 05:55 Dose: 40 mg Polyethylene Glycol (Miralax) 17 gm PO BID [facility] Last Admin: 01/25/17 17:16 Dose: Not Given Primidone (Mysoline) 50 mg PO DAILY [facility] PRN Reason: Protocol Last Admin: 01/25/17 10:57 Dose: 50 mg Trazodone HCl (Desyrel) 50 mg PO HS [facility] PRN Reason: Protocol Last Admin: 01/24/17 22:41 Dose: 50 mg - Labs Labs: 01/25/17 10:31 01/25/17 10:31 - Constitutional Appears: Non-toxic, No Acute Distress - Head Exam Head Exam: ATRAUMATIC, NORMOCEPHALIC - Eye Exam Eye Exam: EOMI - ENT Exam ENT Exam: Mucous Membranes Moist - Neck Exam Neck Exam: Full ROM. absent: Lymphadenopathy, Thyromegaly - Respiratory Exam Respiratory Exam: Clear to Ausculation Bilateral, NORMAL BREATHING PATTERN - Cardiovascular Exam Cardiovascular Exam: REGULAR RHYTHM, RRR, +S1, +S2. absent: JVD - GI/Abdominal Exam GI & Abdominal Exam: Soft, Normal Bowel Sounds. absent: Tenderness - Extremities Exam Extremities Exam: absent: Joint Swelling, Pedal Edema - Neurological Exam Neurological Exam: Alert, Awake, CN II-XII Intact, Normal Gait, Oriented x3 - Psychiatric Exam Psychiatric exam: Normal Affect, Normal Mood - Skin Skin Exam: Dry, Intact, Normal Color, Warm Assessment and Plan - Assessment and Plan (Free Text) Assessment: This a 71Y F PMH HTN, NPH, RA, chronic vertigo and hypothyroidism admitted for fall. Plan: 1. Syncope s/p fall - secondary to normal pressure hydrocephalus versus UTI, per neruo likely UTI - Patient will work with physical therapy for strength and gait training 2. UTI - Urine culture showed E.coli - Continue Vantin - Tylenol prn fever 3. Normal pressure Hydrocephalus - Will continue to monitor. - Patient will follow up with neurosurgeon Dr. Willett outpatient 4. Rheumatoid arthritis - Continue Celebrex, Neurontin and Multivitamin 5. HTN - Atenolol only give if HR >55 - Started Norvasc 10mg qd 6. Hypothryoidism - Continue Synthroid 7. Vertigo (chronic) - Continue Meclizine 8. Anxiety - Continue Xanax, Trazodone, Fluxetine, and Ritalin GI ppx: Protonix DVT ppx: SCDs Case discussed with attending Dr. Leon <Suleiman Leon - Last Filed: 01/26/17 15:01> Objective - Vital Signs/Intake and Output Vital Signs (last 24 hours): Temp Pulse Resp BP Pulse Ox 98.3 F 53 L 20 123/57 L 97 01/26/17 10:00 01/26/17 10:27 01/26/17 10:00 01/26/17 10:27 01/26/17 10:00 - Medications Medications: Current Medications Acetaminophen (Tylenol 325mg Tab) 650 mg PO Q6 PRN; Protocol PRN Reason: Fever >100.4 F Albuterol/Ipratropium (Duoneb 3 Mg/0.5 Mg (3 Ml) Ud) 3 ml IH [id number] PRN; Protocol PRN Reason: Shortness of Breath Alprazolam (Xanax) 0.25 mg PO Q6 PRN; Protocol PRN Reason: Agitation Stop: 01/29/17 16:08 Last Admin: 01/26/17 10:29 Dose: 0.25 mg Atenolol (Tenormin) 25 mg PO DAILY [facility] PRN Reason: Protocol Last Admin: 01/26/17 10:27 Dose: 25 mg Cefpodoxime Proxetil (Vantin) 200 mg PO Q12 [facility] PRN Reason: Protocol Last Admin: 01/26/17 10:29 Dose: 200 mg Cyclosporine (Restasis) 1 ea OU Q12 [facility] PRN Reason: Protocol Last Admin: 01/26/17 10:26 Dose: 1 ea Fluoxetine HCl (Prozac) 40 mg PO DAILY [facility] PRN Reason: Protocol Last Admin: 01/26/17 10:26 Dose: 40 mg Folic Acid (Folic Acid) 1 mg PO DAILY [facility] PRN Reason: Protocol Last Admin: 01/26/17 10:24 Dose: 1 mg Gabapentin (Neurontin) 100 mg PO DAILY [facility] PRN Reason: Protocol Last Admin: 01/26/17 10:25 Dose: 100 mg Guaifenesin (Robitussin) 200 mg PO Q4H PRN; Protocol PRN Reason: Cough and congestion Levothyroxine Sodium (Synthroid) 50 mcg PO TTS@0630 [facility] PRN Reason: Protocol Last Admin: 01/26/17 06:44 Dose: 50 mcg Levothyroxine Sodium (Synthroid) 75 mcg PO MWF@0630 [facility] PRN Reason: Protocol Last Admin: 01/25/17 05:55 Dose: 75 mcg Levothyroxine Sodium (Synthroid) 50 mcg PO SUN@0630 [facility] PRN Reason: Protocol Magnesium Hydroxide (Milk Of Magnesia) 30 ml PO DAILY PRN; Protocol PRN Reason: Constipation Last Admin: 01/24/17 18:56 Dose: 30 ml Meclizine HCl (Antivert) 25 mg PO DAILY [facility] PRN Reason: Protocol Last Admin: 01/26/17 10:23 Dose: 25 mg Methylphenidate HCl (Ritalin) 5 mg PO BID [facility] PRN Reason: Protocol Last Admin: 01/26/17 10:27 Dose: 5 mg Multivitamins (Thera Tab) 1 tab PO DAILY [facility] PRN Reason: Protocol Last Admin: 01/26/17 10:28 Dose: 1 tab Ondansetron HCl (Zofran Inj) 4 mg IVP Q6 PRN; Protocol PRN Reason: Nausea/Vomiting Pantoprazole Sodium (Protonix Ec Tab) 40 mg PO 0630 [facility] Last Admin: 01/26/17 06:43 Dose: 40 mg Polyethylene Glycol (Miralax) 17 gm PO BID [facility] Last Admin: 01/26/17 10:24 Dose: Not Given Primidone (Mysoline) 50 mg PO DAILY [facility] PRN Reason: Protocol Last Admin: 01/26/17 10:25 Dose: 50 mg Trazodone HCl (Desyrel) 50 mg PO HS [facility] PRN Reason: Protocol Last Admin: 01/25/17 21:38 Dose: 50 mg - Labs Labs: 01/25/17 10:31 01/25/17 10:31 Attending/Attestation - Attestation I have personally seen and examined this patient.: Yes I have fully participated in the care of the patient.: Yes I have reviewed all pertinent clinical information, including history, physical exam and plan: Yes Notes (Text): I have seen and examined the patient at bedside. Agree with the note above. This is 71 year old female with history of HTN, NPH, Rheumatoid arthritis, chronic vertigo who presented after a fall and found to have EColi UTI. Patient has been participating in physical therapy. Continue po vantin. Patient just gets 2 days of home care services. Discussed with social sciences instructor. Upon discharge patient will follow up with Dr Heaton. Dr Suleiman Leon
[2017-01-26] MEDS: Pantoprazole 40 mg EC Tab PO SCH (06:43)
[2017-01-26] MEDS: Levothyroxine 50 MCG TAB PO SCH (06:44)
[2017-01-26] MEDS: POLYETHYLENE GLYCOL 3350 17 GM/Dose PACKET PO SCH ×2 (10:24→18:14)
[2017-01-26] MEDS: cycloSPORINE 0.05 % Opth Emulsion UD OU SCH ×2 (10:26→21:58)
[2017-01-26] MEDS: Multivitamin Therapeutic Tab PO SCH (10:28)
[2017-01-26] MEDS: Cefpodoxime (Vantin) 200 mg Tab PO SCH ×2 (10:29→21:57)
[2017-01-27] MEDS: Pantoprazole 40 mg EC Tab PO SCH (05:45)
[2017-01-27] MEDS: Levothyroxine 75 MCG TAB PO SCH (05:45)
[2017-01-27 07:05] LABS: ADD MANUAL DIFF? NO
[2017-01-27 07:18] LABS: BASO # 0.05 K/mm3 (0.0-2.0); BASO % 0.9 % (0.0-3.0); EOS # 0.3 (0.0-0.7); EOS % 4.3 % (1.5-5.0); GRAN # 2.96 (1.4-6.5); HEMATOCRIT 32.9 % (36.0-48.0); LYMPH # 1.8 (1.2-3.4); LYMPH % 31.2 % (22.0-35.0); MEAN CORPUSCULAR HEMOGLOBIN 31.4 pg (25.0-35.0); MEAN CORPUSCULAR HGB CONC 33.4 g/dl (31.0-37.0); MEAN PLATELET VOLUME 9.9 fl (7.0-11.0); MONO # 0.7 (0.1-0.6); MONO % 12.6 % (1.0-6.0); PLATELET COUNT 274 10^3/uL (120.0-450.0); WHITE BLOOD COUNT 5.8 10^3/ul (4.5-11.0)
[2017-01-27 07:21] LABS: ALB/GLOB RATIO 1.4 (1.1-1.8); ALKALINE PHOSPHATASE 77 U/L (38-133); ALT/SGPT 36 U/L (7-56); AST/SGOT 21 U/L (15-39); BILIRUBIN,TOTAL 0.2 mg/dL (0.2-1.3); BLOOD UREA NITROGEN 13 mg/dL (7-21); CALCIUM 8.8 mg/dL (8.4-10.5); CARBON DIOXIDE 30 mmol/L (21-33); CHLORIDE 101 mmol/L (95-110); GFR AFRICAN-AMERICAN > 60; GLUCOSE,RANDOM 85 mg/dL (70-110); SODIUM 136 mmol/L (132-148); TOTAL PROTEIN 5.9 g/dL (5.8-8.3)
[2017-01-27] MEDS: Multivitamin Therapeutic Tab PO SCH (10:01)
[2017-01-27] MEDS: Cefpodoxime (Vantin) 200 mg Tab PO SCH ×2 (10:01→21:06)
[2017-01-27] MEDS: POLYETHYLENE GLYCOL 3350 17 GM/Dose PACKET PO SCH ×2 (10:02→17:13)
--- NOTE | 2017-01-27 10:41 | CP.PCM.PN ---
<Evita Rodriguez - Last Filed: 01/27/17 13:15> Subjective - Date & Time of Evaluation Date of Evaluation: 01/27/17 Time of Evaluation: 10:35 - Subjective Subjective: HOSPITALIST PROGRESS NOTE Pt is seen and examined at bedside. No acute events overnight. Patient denies having any CP, SOB, abd pain, N/V/D/C. Patient states that her lower extremity weakness has improved with physical therapy but she is unsure whether she is at her baseline strength yet. She states that she would like to stay in TCu for further strengthening. Objective - Vital Signs/Intake and Output Vital Signs (last 24 hours): Temp Pulse Resp BP Pulse Ox 98 F 51 L 18 99/46 L 95 01/27/17 05:56 01/27/17 05:56 01/27/17 05:56 01/27/17 05:56 01/27/17 05:56 - Medications Medications: Current Medications Acetaminophen (Tylenol 325mg Tab) 650 mg PO Q6 PRN; Protocol PRN Reason: Fever >100.4 F Albuterol/Ipratropium (Duoneb 3 Mg/0.5 Mg (3 Ml) Ud) 3 ml IH [id number] PRN; Protocol PRN Reason: Shortness of Breath Alprazolam (Xanax) 0.25 mg PO Q6 PRN; Protocol PRN Reason: Agitation Stop: 01/29/17 16:08 Last Admin: 01/26/17 19:46 Dose: 0.25 mg Atenolol (Tenormin) 25 mg PO DAILY [facility] PRN Reason: Protocol Last Admin: 01/27/17 10:02 Dose: 25 mg Cefpodoxime Proxetil (Vantin) 200 mg PO Q12 [facility] PRN Reason: Protocol Last Admin: 01/27/17 10:01 Dose: 200 mg Cyclosporine (Restasis) 1 ea OU Q12 [facility] PRN Reason: Protocol Last Admin: 01/26/17 21:58 Dose: 1 ea Fluoxetine HCl (Prozac) 40 mg PO DAILY [facility] PRN Reason: Protocol Last Admin: 01/27/17 10:02 Dose: 40 mg Folic Acid (Folic Acid) 1 mg PO DAILY [facility] PRN Reason: Protocol Last Admin: 01/27/17 10:02 Dose: 1 mg Gabapentin (Neurontin) 100 mg PO DAILY [facility] PRN Reason: Protocol Last Admin: 01/27/17 10:01 Dose: 100 mg Guaifenesin (Robitussin) 200 mg PO Q4H PRN; Protocol PRN Reason: Cough and congestion Levothyroxine Sodium (Synthroid) 50 mcg PO TTS@0630 [facility] PRN Reason: Protocol Last Admin: 01/26/17 06:44 Dose: 50 mcg Levothyroxine Sodium (Synthroid) 75 mcg PO MWF@0630 [facility] PRN Reason: Protocol Last Admin: 01/27/17 05:45 Dose: 75 mcg Levothyroxine Sodium (Synthroid) 50 mcg PO SUN@0630 [facility] PRN Reason: Protocol Magnesium Hydroxide (Milk Of Magnesia) 30 ml PO DAILY PRN; Protocol PRN Reason: Constipation Last Admin: 01/24/17 18:56 Dose: 30 ml Meclizine HCl (Antivert) 25 mg PO DAILY [facility] PRN Reason: Protocol Last Admin: 01/27/17 10:02 Dose: 25 mg Methylphenidate HCl (Ritalin) 5 mg PO BID [facility] PRN Reason: Protocol Last Admin: 01/27/17 10:00 Dose: 5 mg Multivitamins (Thera Tab) 1 tab PO DAILY [facility] PRN Reason: Protocol Last Admin: 01/27/17 10:01 Dose: 1 tab Ondansetron HCl (Zofran Inj) 4 mg IVP Q6 PRN; Protocol PRN Reason: Nausea/Vomiting Pantoprazole Sodium (Protonix Ec Tab) 40 mg PO 0630 [facility] Last Admin: 01/27/17 05:45 Dose: 40 mg Polyethylene Glycol (Miralax) 17 gm PO BID [facility] Last Admin: 01/27/17 10:02 Dose: 17 gm Primidone (Mysoline) 50 mg PO DAILY [facility] PRN Reason: Protocol Last Admin: 01/27/17 10:02 Dose: 50 mg Trazodone HCl (Desyrel) 50 mg PO HS [facility] PRN Reason: Protocol Last Admin: 01/26/17 21:57 Dose: 50 mg - Labs Labs: 01/27/17 06:45 01/27/17 06:45 - Constitutional Appears: Non-toxic, No Acute Distress - Head Exam Head Exam: ATRAUMATIC - ENT Exam ENT Exam: Mucous Membranes Moist - Respiratory Exam Respiratory Exam: Clear to Ausculation Bilateral, NORMAL BREATHING PATTERN. absent: Rales, Rhonchi, Wheezes - Cardiovascular Exam Cardiovascular Exam: REGULAR RHYTHM, +S1, +S2. absent: Gallop, Rubs, Murmur - GI/Abdominal Exam GI & Abdominal Exam: Soft, Normal Bowel Sounds. absent: Distended, Firm, Guarding, Rigid, Tenderness - Extremities Exam Extremities Exam: absent: Pedal Edema, Tenderness - Neurological Exam Neurological Exam: Alert, Awake, Oriented x3 - Psychiatric Exam Psychiatric exam: Normal Affect, Normal Mood - Skin Skin Exam: Dry, Intact, Normal Color, Warm Assessment and Plan - Assessment and Plan (Free Text) Assessment: This a 71Y F PMH HTN, NPH, RA, chronic vertigo and hypothyroidism admitted for fall. Plan: 1. Syncope s/p fall - secondary to normal pressure hydrocephalus versus UTI, per neruo likely UTI - Continue PT 2. UTI -Resolved. Finished antibiotic course 3. Normal pressure Hydrocephalus - Will continue to monitor. - Patient will follow up with neurosurgeon Dr. Willett outpatient 4. Rheumatoid arthritis - Continue Celebrex, Neurontin and Multivitamin 5. HTN - Atenolol only give if HR >55 - Started Norvasc 10mg qd 6. Hypothryoidism - Continue Synthroid 7. Vertigo (chronic) - Continue Meclizine 8. Anxiety - Continue Xanax, Trazodone, Fluxetine, and Ritalin GI ppx: Protonix DVT ppx: SCDs Case discussed with attending Dr. Leon <Suleiman Leon B - Last Filed: 01/27/17 16:44> Objective - Vital Signs/Intake and Output Vital Signs (last 24 hours): Temp Pulse Resp BP Pulse Ox 97.6 F 56 L 20 120/43 L 95 01/27/17 16:00 01/27/17 16:00 01/27/17 16:00 01/27/17 16:00 01/27/17 16:00 - Medications Medications: Current Medications Acetaminophen (Tylenol 325mg Tab) 650 mg PO Q6 PRN; Protocol PRN Reason: Fever >100.4 F Albuterol/Ipratropium (Duoneb 3 Mg/0.5 Mg (3 Ml) Ud) 3 ml IH [id number] PRN; Protocol PRN Reason: Shortness of Breath Alprazolam (Xanax) 0.25 mg PO Q6 PRN; Protocol PRN Reason: Agitation Stop: 01/29/17 16:08 Last Admin: 01/26/17 19:46 Dose: 0.25 mg Atenolol (Tenormin) 25 mg PO DAILY [facility] PRN Reason: Protocol Last Admin: 01/27/17 10:02 Dose: 25 mg Cefpodoxime Proxetil (Vantin) 200 mg PO Q12 [facility] PRN Reason: Protocol Last Admin: 01/27/17 10:01 Dose: 200 mg Cyclosporine (Restasis) 1 ea OU Q12 [facility] PRN Reason: Protocol Last Admin: 01/27/17 11:09 Dose: 1 ea Fluoxetine HCl (Prozac) 40 mg PO DAILY [facility] PRN Reason: Protocol Last Admin: 01/27/17 10:02 Dose: 40 mg Folic Acid (Folic Acid) 1 mg PO DAILY [facility] PRN Reason: Protocol Last Admin: 01/27/17 10:02 Dose: 1 mg Gabapentin (Neurontin) 100 mg PO DAILY [facility] PRN Reason: Protocol Last Admin: 01/27/17 10:01 Dose: 100 mg Guaifenesin (Robitussin) 200 mg PO Q4H PRN; Protocol PRN Reason: Cough and congestion Levothyroxine Sodium (Synthroid) 50 mcg PO TTS@0630 [facility] PRN Reason: Protocol Last Admin: 01/26/17 06:44 Dose: 50 mcg Levothyroxine Sodium (Synthroid) 75 mcg PO MWF@0630 [facility] PRN Reason: Protocol Last Admin: 01/27/17 05:45 Dose: 75 mcg Levothyroxine Sodium (Synthroid) 50 mcg PO SUN@0630 [facility] PRN Reason: Protocol Magnesium Hydroxide (Milk Of Magnesia) 30 ml PO DAILY PRN; Protocol PRN Reason: Constipation Last Admin: 01/24/17 18:56 Dose: 30 ml Meclizine HCl (Antivert) 25 mg PO DAILY [facility] PRN Reason: Protocol Last Admin: 01/27/17 10:02 Dose: 25 mg Methylphenidate HCl (Ritalin) 5 mg PO BID [facility] PRN Reason: Protocol Last Admin: 01/27/17 10:00 Dose: 5 mg Multivitamins (Thera Tab) 1 tab PO DAILY [facility] PRN Reason: Protocol Last Admin: 01/27/17 10:01 Dose: 1 tab Ondansetron HCl (Zofran Inj) 4 mg IVP Q6 PRN; Protocol PRN Reason: Nausea/Vomiting Pantoprazole Sodium (Protonix Ec Tab) 40 mg PO 0630 [facility] Last Admin: 01/27/17 05:45 Dose: 40 mg Polyethylene Glycol (Miralax) 17 gm PO BID [facility] Last Admin: 01/27/17 10:02 Dose: 17 gm Primidone (Mysoline) 50 mg PO DAILY [facility] PRN Reason: Protocol Last Admin: 01/27/17 10:02 Dose: 50 mg Trazodone HCl (Desyrel) 50 mg PO HS [facility] PRN Reason: Protocol Last Admin: 01/26/17 21:57 Dose: 50 mg - Labs Labs: 01/27/17 06:45 01/27/17 06:45 Attending/Attestation - Attestation I have personally seen and examined this patient.: Yes I have fully participated in the care of the patient.: Yes I have reviewed all pertinent clinical information, including history, physical exam and plan: Yes Notes (Text): I have seen and examined the patient at bedside. Agree with the note above. This is 71 year old female with history of HTN, NPH, Rheumatoid arthritis, chronic vertigo who presented after a fall and found to have EColi UTI. Patient has been participating in physical therapy. Patient has completed po vantin. Discussed with social insurance analyst. Upon discharge patient will follow up with Dr Heaton. Dr Suleiman Leon
[2017-01-27] MEDS: cycloSPORINE 0.05 % Opth Emulsion UD OU SCH ×2 (11:09→21:06)
[2017-01-28] MEDS: Levothyroxine 50 MCG TAB PO SCH (05:30)
[2017-01-28] MEDS: Pantoprazole 40 mg EC Tab PO SCH (05:30)
[2017-01-28] MEDS: POLYETHYLENE GLYCOL 3350 17 GM/Dose PACKET PO SCH ×2 (10:24→18:16)
[2017-01-28] MEDS: Cefpodoxime (Vantin) 200 mg Tab PO SCH ×2 (10:29→20:59)
[2017-01-28] MEDS: Multivitamin Therapeutic Tab PO SCH (10:29)
[2017-01-28] MEDS: cycloSPORINE 0.05 % Opth Emulsion UD OU SCH ×2 (11:12→22:11)
[2017-01-29] MEDS: Pantoprazole 40 mg EC Tab PO SCH (05:40)
[2017-01-29] MEDS: cycloSPORINE 0.05 % Opth Emulsion UD OU SCH ×3 (06:20→21:08)
[2017-01-29] MEDS ORDERED: Levothyroxine 50 MCG TAB PO SCH (06:30)
[2017-01-29 07:37] LABS: HEMATOCRIT 34.1 % (36.0-48.0); MEAN CELL VOLUME 93.9 fL (80.0-105.0); MEAN CORPUSCULAR HEMOGLOBIN 31.4 pg (25.0-35.0); MEAN CORPUSCULAR HGB CONC 33.4 g/dl (31.0-37.0); MEAN PLATELET VOLUME 9.7 fl (7.0-11.0); WHITE BLOOD COUNT 5.2 10^3/ul (4.5-11.0)
[2017-01-29 07:47] LABS: BLOOD UREA NITROGEN 13 mg/dL (7-21); CALCIUM 8.9 mg/dL (8.4-10.5); CARBON DIOXIDE 27 mmol/L (21-33); CHLORIDE 102 mmol/L (98-107); GFR AFRICAN-AMERICAN > 60; GLUCOSE,RANDOM 86 mg/dL (70-110); POTASSIUM 4.2 mmol/L (3.6-5.0); SODIUM 137 mmol/L (132-148)
[2017-01-29] MEDS: POLYETHYLENE GLYCOL 3350 17 GM/Dose PACKET PO SCH ×2 (09:43→17:35)
[2017-01-29] MEDS: Magnesium Hydroxide Susp 30 ml UD PO PRN (09:43)
[2017-01-29] MEDS: Multivitamin Therapeutic Tab PO SCH (09:45)
[2017-01-29] MEDS: Aritificial Tears (15ml) OD PRN ×2 (14:24→18:27)
--- NOTE | 2017-01-29 17:04 | CP.PCM.PN ---
<HirschRuddy - Last Filed: 01/29/17 16:54> Subjective - Date & Time of Evaluation Date of Evaluation: 01/29/17 Time of Evaluation: 07:30 - Subjective Subjective: HOSPITALIST PROGRESS NOTE Pt is seen and examined at bedside. No acute events overnight. Patient denies having any headaches, fever, chills, CP, SOB, abd pain, N/V/D/C. Patient states that her lower extremity weakness has improved with physical therapy but she is not back to normal. She is looking forward to going home tomorrow. Objective - Vital Signs/Intake and Output Vital Signs (last 24 hours): Temp Pulse Resp BP Pulse Ox 98.4 F 59 L 18 105/53 L 99 01/29/17 16:00 01/29/17 16:00 01/29/17 16:00 01/29/17 16:00 01/29/17 16:00 Intake and Output: 01/29/17 01/29/17 06:59 18:59 Intake Total 520 Balance 520 - Medications Medications: Current Medications Acetaminophen (Tylenol 325mg Tab) 650 mg PO Q6 PRN; Protocol PRN Reason: Fever >100.4 F Albuterol/Ipratropium (Duoneb 3 Mg/0.5 Mg (3 Ml) Ud) 3 ml IH [id number] PRN; Protocol PRN Reason: Shortness of Breath Artificial Tears (Artificial Tears) 0 ml OD Q4 PRN PRN Reason: Dry eyes Last Admin: 01/29/17 14:24 Dose: 2 drop Atenolol (Tenormin) 25 mg PO DAILY [facility] PRN Reason: Protocol Last Admin: 01/29/17 09:44 Dose: 25 mg Cyclosporine (Restasis) 1 ea OU Q12 [facility] PRN Reason: Protocol Last Admin: 01/29/17 11:16 Dose: 1 ea Fluoxetine HCl (Prozac) 40 mg PO DAILY [facility] PRN Reason: Protocol Last Admin: 01/29/17 09:44 Dose: 40 mg Folic Acid (Folic Acid) 1 mg PO DAILY [facility] PRN Reason: Protocol Last Admin: 01/29/17 09:42 Dose: 1 mg Gabapentin (Neurontin) 100 mg PO DAILY [facility] PRN Reason: Protocol Last Admin: 01/29/17 09:44 Dose: 100 mg Guaifenesin (Robitussin) 200 mg PO Q4H PRN; Protocol PRN Reason: Cough and congestion Levothyroxine Sodium (Synthroid) 50 mcg PO TTS@0630 [facility] PRN Reason: Protocol Last Admin: 01/28/17 05:30 Dose: 50 mcg Levothyroxine Sodium (Synthroid) 75 mcg PO MWF@0630 [facility] PRN Reason: Protocol Last Admin: 01/27/17 05:45 Dose: 75 mcg Levothyroxine Sodium (Synthroid) 50 mcg PO SUN@0630 [facility] PRN Reason: Protocol Last Admin: 01/29/17 05:41 Dose: 50 mcg Magnesium Hydroxide (Milk Of Magnesia) 30 ml PO DAILY PRN; Protocol PRN Reason: Constipation Last Admin: 01/29/17 09:43 Dose: 30 ml Meclizine HCl (Antivert) 25 mg PO DAILY [facility] PRN Reason: Protocol Last Admin: 01/29/17 09:42 Dose: 25 mg Methylphenidate HCl (Ritalin) 5 mg PO BID [facility] PRN Reason: Protocol Last Admin: 01/29/17 09:44 Dose: 5 mg Multivitamins (Thera Tab) 1 tab PO DAILY [facility] PRN Reason: Protocol Last Admin: 01/29/17 09:45 Dose: 1 tab Ondansetron HCl (Zofran Inj) 4 mg IVP Q6 PRN; Protocol PRN Reason: Nausea/Vomiting Pantoprazole Sodium (Protonix Ec Tab) 40 mg PO 0630 [facility] Last Admin: 01/29/17 05:40 Dose: 40 mg Polyethylene Glycol (Miralax) 17 gm PO BID [facility] Last Admin: 01/29/17 09:43 Dose: Not Given Primidone (Mysoline) 50 mg PO DAILY [facility] PRN Reason: Protocol Last Admin: 01/29/17 09:43 Dose: 50 mg Trazodone HCl (Desyrel) 50 mg PO HS [facility] PRN Reason: Protocol Last Admin: 01/28/17 20:59 Dose: 50 mg - Labs Labs: 01/29/17 07:00 01/29/17 07:00 - Constitutional Appears: Non-toxic, No Acute Distress - Head Exam Head Exam: ATRAUMATIC - ENT Exam ENT Exam: Mucous Membranes Moist - Respiratory Exam Respiratory Exam: Clear to Ausculation Bilateral, NORMAL BREATHING PATTERN. absent: Rales, Rhonchi, Wheezes - Cardiovascular Exam Cardiovascular Exam: REGULAR RHYTHM, +S1, +S2. absent: Gallop, Rubs, Murmur - GI/Abdominal Exam GI & Abdominal Exam: Soft, Normal Bowel Sounds. absent: Distended, Firm, Guarding, Rigid, Tenderness - Extremities Exam Extremities Exam: absent: Pedal Edema, Tenderness - Neurological Exam Neurological Exam: Alert, Awake, Oriented x3 - Psychiatric Exam Psychiatric exam: Normal Affect, Normal Mood - Skin Skin Exam: Dry, Intact, Normal Color, Warm Assessment and Plan - Assessment and Plan (Free Text) Assessment: This a 71Y F PMH HTN, NPH, RA, chronic vertigo and hypothyroidism admitted for fall. Plan: 1. Syncope s/p fall - secondary to normal pressure hydrocephalus versus UTI, per neruo likely UTI - Continue PT 2. UTI -Resolved. Finished antibiotic course 3. Normal pressure Hydrocephalus - Will continue to monitor. - Patient will follow up with neurosurgeon Dr. Willett outpatient 4. Rheumatoid arthritis - Continue Celebrex, Neurontin and Multivitamin 5. HTN - Atenolol on HOLD for hypotension -check vitals in the AM 6. Hypothryoidism - Continue Synthroid 7. Vertigo (chronic) - Continue Meclizine 8. Anxiety - Continue Xanax, Trazodone, Fluxetine, and Ritalin GI ppx: Protonix DVT ppx: SCDs Case discussed with attending Dr. Leon <Suleiman Leon B - Last Filed: 01/29/17 17:38> Objective - Vital Signs/Intake and Output Vital Signs (last 24 hours): Temp Pulse Resp BP Pulse Ox 98.4 F 59 L 18 105/53 L 99 01/29/17 16:00 01/29/17 16:00 01/29/17 16:00 01/29/17 16:00 01/29/17 16:00 Intake and Output: 01/29/17 01/29/17 06:59 18:59 Intake Total 520 Balance 520 - Medications Medications: Current Medications Acetaminophen (Tylenol 325mg Tab) 650 mg PO Q6 PRN; Protocol PRN Reason: Fever >100.4 F Albuterol/Ipratropium (Duoneb 3 Mg/0.5 Mg (3 Ml) Ud) 3 ml IH [id number] PRN; Protocol PRN Reason: Shortness of Breath Artificial Tears (Artificial Tears) 0 ml OD Q4 PRN PRN Reason: Dry eyes Last Admin: 01/29/17 14:24 Dose: 2 drop Atenolol (Tenormin) 25 mg PO DAILY [facility] PRN Reason: Protocol Last Admin: 01/29/17 09:44 Dose: 25 mg Cyclosporine (Restasis) 1 ea OU Q12 [facility] PRN Reason: Protocol Last Admin: 01/29/17 11:16 Dose: 1 ea Fluoxetine HCl (Prozac) 40 mg PO DAILY [facility] PRN Reason: Protocol Last Admin: 01/29/17 09:44 Dose: 40 mg Folic Acid (Folic Acid) 1 mg PO DAILY [facility] PRN Reason: Protocol Last Admin: 01/29/17 09:42 Dose: 1 mg Gabapentin (Neurontin) 100 mg PO DAILY [facility] PRN Reason: Protocol Last Admin: 01/29/17 09:44 Dose: 100 mg Guaifenesin (Robitussin) 200 mg PO Q4H PRN; Protocol PRN Reason: Cough and congestion Levothyroxine Sodium (Synthroid) 50 mcg PO TTS@0630 [facility] PRN Reason: Protocol Last Admin: 01/28/17 05:30 Dose: 50 mcg Levothyroxine Sodium (Synthroid) 75 mcg PO MWF@0630 [facility] PRN Reason: Protocol Last Admin: 01/27/17 05:45 Dose: 75 mcg Levothyroxine Sodium (Synthroid) 50 mcg PO SUN@0630 [facility] PRN Reason: Protocol Last Admin: 01/29/17 05:41 Dose: 50 mcg Magnesium Hydroxide (Milk Of Magnesia) 30 ml PO DAILY PRN; Protocol PRN Reason: Constipation Last Admin: 01/29/17 09:43 Dose: 30 ml Meclizine HCl (Antivert) 25 mg PO DAILY [facility] PRN Reason: Protocol Last Admin: 01/29/17 09:42 Dose: 25 mg Methylphenidate HCl (Ritalin) 5 mg PO BID [facility] PRN Reason: Protocol Last Admin: 01/29/17 17:35 Dose: 5 mg Multivitamins (Thera Tab) 1 tab PO DAILY [facility] PRN Reason: Protocol Last Admin: 01/29/17 09:45 Dose: 1 tab Ondansetron HCl (Zofran Inj) 4 mg IVP Q6 PRN; Protocol PRN Reason: Nausea/Vomiting Pantoprazole Sodium (Protonix Ec Tab) 40 mg PO 0630 [facility] Last Admin: 01/29/17 05:40 Dose: 40 mg Polyethylene Glycol (Miralax) 17 gm PO BID [facility] Last Admin: 01/29/17 17:35 Dose: Not Given Primidone (Mysoline) 50 mg PO DAILY [facility] PRN Reason: Protocol Last Admin: 01/29/17 09:43 Dose: 50 mg Trazodone HCl (Desyrel) 50 mg PO HS [facility] PRN Reason: Protocol Last Admin: 01/28/17 20:59 Dose: 50 mg - Labs Labs: 01/29/17 07:00 01/29/17 07:00 Attending/Attestation - Attestation I have personally seen and examined this patient.: Yes I have fully participated in the care of the patient.: Yes I have reviewed all pertinent clinical information, including history, physical exam and plan: Yes Notes (Text): I have seen and examined the patient at bedside. Agree with the note above. This is 71 year old female with history of HTN, NPH, Rheumatoid arthritis, chronic vertigo who presented after a fall and found to have EColi UTI which has been treated. Patient has been participating in physical therapy. Discussed with professor of social work. She is scheduled to go home tomorrow. BP was noted to be low. Will hold atenolol. Upon discharge patient will follow up with Dr Heaton. Dr Suleiman Leon
[2017-01-30] MEDS: Pantoprazole 40 mg EC Tab PO SCH (05:33)
[2017-01-30] MEDS: Levothyroxine 75 MCG TAB PO SCH (05:33)
[2017-01-30] MEDS: POLYETHYLENE GLYCOL 3350 17 GM/Dose PACKET PO SCH (10:12)
[2017-01-30] MEDS: cycloSPORINE 0.05 % Opth Emulsion UD OU SCH (10:14)
[2017-01-30] MEDS: Multivitamin Therapeutic Tab PO SCH (10:15)
[2017-01-30 10:27] VITALS: BP 143/65; PULSE 56; RESP 18; TEMP 98; O2SAT 99
--- NOTE | 2017-01-30 14:49 | CP.PCM.DIS ---
<Evita Rodriguez - Last Filed: 01/30/17 14:45> Provider - Provider Date of Admission: 01/22/17 16:02 Attending physician: Eldon Yee MD Primary care physician: Aba Joseph MD Time Spent in preparation of Discharge (in minutes): 46 Diagnosis - Discharge Diagnosis (1) Normal pressure hydrocephalus Status: Chronic (2) HTN (hypertension) Status: Chronic (3) Multiple falls Status: Chronic Hospital Course - Lab Results Lab Results: Most Recent Lab Values WBC 5.2 10^3/ul (4.5-11.0) 01/29/17 07:00 RBC 3.63 10^6/uL (3.5-6.1) 01/29/17 07:00 Hgb 11.4 gm/dL (12.0-16.0) L 01/29/17 07:00 Hct 34.1 % (36.0-48.0) L 01/29/17 07:00 MCV 93.9 fL (80.0-105.0) 01/29/17 07:00 MCH 31.4 pg (25.0-35.0) 01/29/17 07:00 MCHC 33.4 g/dl (31.0-37.0) 01/29/17 07:00 RDW 15.0 % (11.5-14.5) H 01/29/17 07:00 Plt Count 259 10^3/uL (120.0-450.0) 01/29/17 07:00 MPV 9.7 fl (7.0-11.0) 01/29/17 07:00 Gran % 51.0 % (50.0-68.0) 01/27/17 06:45 Lymph % (Auto) 31.2 % (22.0-35.0) 01/27/17 06:45 [place] % (Auto) 12.6 % (1.0-6.0) H 01/27/17 06:45 Eos % (Auto) 4.3 % (1.5-5.0) 01/27/17 06:45 Baso % (Auto) 0.9 % (0.0-3.0) 01/27/17 06:45 Gran # 2.96 (1.4-6.5) 01/27/17 06:45 Lymph # 1.8 (1.2-3.4) 01/27/17 06:45 [place] # 0.7 (0.1-0.6) H 01/27/17 06:45 Eos # 0.3 (0.0-0.7) 01/27/17 06:45 Baso # 0.05 K/mm3 (0.0-2.0) 01/27/17 06:45 Sodium 137 mmol/L (132-148) 01/29/17 07:00 Potassium 4.2 mmol/L (3.6-5.0) 01/29/17 07:00 Chloride 102 mmol/L (98-107) 01/29/17 07:00 Carbon Dioxide 27 mmol/L (21-33) 01/29/17 07:00 Anion Gap 12 (10-20) 01/29/17 07:00 BUN 13 mg/dL (7-21) 01/29/17 07:00 Creatinine 0.7 mg/dL (0.5-1.4) 01/29/17 07:00 Est GFR ( Amer) > 60 01/29/17 07:00 Est GFR (Non-Af Amer) > 60 01/29/17 07:00 POC Glucose (mg/dL) 102 mg/dL (65-110) 01/23/17 21:12 Random Glucose 86 mg/dL (70-110) 01/29/17 07:00 Calcium 8.9 mg/dL (8.4-10.5) 01/29/17 07:00 Total Bilirubin 0.2 mg/dL (0.2-1.3) 01/27/17 06:45 AST 21 U/L (15-39) 01/27/17 06:45 ALT 36 U/L (7-56) 01/27/17 06:45 Alkaline Phosphatase 77 U/L (38-133) 01/27/17 06:45 Total Protein 5.9 g/dL (5.8-8.3) 01/27/17 06:45 Albumin 3.4 g/dL (3.0-4.8) 01/27/17 06:45 Globulin 2.5 gm/dL 01/27/17 06:45 Albumin/Globulin Ratio 1.4 (1.1-1.8) 01/27/17 06:45 - Hospital Course Hospital Course: 71 year old female with past medical history of HTN, normal pressure hydrocephalus with shunt placement which is currently off, rheumatoid arthritis , chronic vertigo is admitted to TCU for rehabilitation. Patient presented to [facility] on 01/18/17 for fall that she experienced in her home. On admission to hospital, CT of head showed no interval change or recurring intracranial hemorrhage, no cranial fractures. It also showed chronic hydrocephalus with ventricular shunt insertion and midline shunt tip positioning as before. Patient also had CT of LE, knee xray and ankle xray which were all negative. After speaking with patient's neurosurgeon, Dr. Willett about patient's condition , patient was admitted for observation and further workup. Per Dr. Willett, patient symptoms were less likely due to intracranial infection because patient denies having any headaches, she was afebrile and no WBC elevation noted. Neurology, cardiology and ID were consulted while patient was on regular medical floor. Patient was found to have a UTI and was treated with antibiotics. Patient received physical therapy for gait training and strengthening in TCU. Before discharge, the option of assisted living facility was discussed with patient in depth. Commercial Kitchen Service Technician also gave patient information about assisted living facility but patient currently refused to go there. Patient was sent home with home with services. Patient is to follow up with PMDr. Opal Mg upon discharge. Patient is to follow up with neurosurgeon, Dr. Willett upon discharge. Patient has an appointment set for Monday02/01/17. Patient is to continue her home medications as instructed. Patient will also continue primidone 50 mg po qd #30 tabs. Scripts will be sent to [facility] in [facility]. Please see EMR for full details. - Date & Time of H&P Date of H&P: 01/30/17 Time of H&P: 14:49 Discharge Exam - Head Exam Head Exam: ATRAUMATIC Discharge Plan - Discharge Medications Prescriptions: Primidone [Mysoline] 50 mg PO DAILY #30 tab - Follow Up Plan Condition: GOOD Disposition: HOME/ ROUTINE Instructions: Urinary Tract Infection in Women (DC), Ventriculoperitoneal Shunt Placement (DC), Anxiety (DC) Additional Instructions: Patient is to follow up with PMDDr. Joseph upon discharge. Patient is to follow up with neurosurgeon, Dr. Willett upon discharge. Patient has an appointment set for Monday02/01/17. Patient is to continue her home medications as instructed. Patient will also continue primidone 50 mg po qd #30 tabs. Scripts will be sent to [facility] in [facility]. Referrals: Aba Joseph MD [Primary Care Provider] - <Eldon Yee - Last Filed: 01/30/17 16:46> Provider - Provider Date of Admission: 01/22/17 16:02 Attending physician: Eldon Yee MD Primary care physician: Aba Joseph MD Hospital Course - Lab Results Lab Results: Most Recent Lab Values WBC 5.2 10^3/ul (4.5-11.0) 01/29/17 07:00 RBC 3.63 10^6/uL (3.5-6.1) 01/29/17 07:00 Hgb 11.4 gm/dL (12.0-16.0) L 01/29/17 07:00 Hct 34.1 % (36.0-48.0) L 01/29/17 07:00 MCV 93.9 fL (80.0-105.0) 01/29/17 07:00 MCH 31.4 pg (25.0-35.0) 01/29/17 07:00 MCHC 33.4 g/dl (31.0-37.0) 01/29/17 07:00 RDW 15.0 % (11.5-14.5) H 01/29/17 07:00 Plt Count 259 10^3/uL (120.0-450.0) 01/29/17 07:00 MPV 9.7 fl (7.0-11.0) 01/29/17 07:00 Gran % 51.0 % (50.0-68.0) 01/27/17 06:45 Lymph % (Auto) 31.2 % (22.0-35.0) 01/27/17 06:45 [place] % (Auto) 12.6 % (1.0-6.0) H 01/27/17 06:45 Eos % (Auto) 4.3 % (1.5-5.0) 01/27/17 06:45 Baso % (Auto) 0.9 % (0.0-3.0) 01/27/17 06:45 Gran # 2.96 (1.4-6.5) 01/27/17 06:45 Lymph # 1.8 (1.2-3.4) 01/27/17 06:45 [place] # 0.7 (0.1-0.6) H 01/27/17 06:45 Eos # 0.3 (0.0-0.7) 01/27/17 06:45 Baso # 0.05 K/mm3 (0.0-2.0) 01/27/17 06:45 Sodium 137 mmol/L (132-148) 01/29/17 07:00 Potassium 4.2 mmol/L (3.6-5.0) 01/29/17 07:00 Chloride 102 mmol/L (98-107) 01/29/17 07:00 Carbon Dioxide 27 mmol/L (21-33) 01/29/17 07:00 Anion Gap 12 (10-20) 01/29/17 07:00 BUN 13 mg/dL (7-21) 01/29/17 07:00 Creatinine 0.7 mg/dL (0.5-1.4) 01/29/17 07:00 Est GFR ( Amer) > 60 01/29/17 07:00 Est GFR (Non-Af Amer) > 60 01/29/17 07:00 POC Glucose (mg/dL) 102 mg/dL (65-110) 01/23/17 21:12 Random Glucose 86 mg/dL (70-110) 01/29/17 07:00 Calcium 8.9 mg/dL (8.4-10.5) 01/29/17 07:00 Total Bilirubin 0.2 mg/dL (0.2-1.3) 01/27/17 06:45 AST 21 U/L (15-39) 01/27/17 06:45 ALT 36 U/L (7-56) 01/27/17 06:45 Alkaline Phosphatase 77 U/L (38-133) 01/27/17 06:45 Total Protein 5.9 g/dL (5.8-8.3) 01/27/17 06:45 Albumin 3.4 g/dL (3.0-4.8) 01/27/17 06:45 Globulin 2.5 gm/dL 01/27/17 06:45 Albumin/Globulin Ratio 1.4 (1.1-1.8) 01/27/17 06:45 Attending/Attestation - Attestation I have personally seen and examined this patient.: Yes I have fully participated in the care of the patient.: Yes I have reviewed all pertinent clinical information, including history, physical exam and plan: Yes Notes (Text): 01/30/17 16:43 Attending note; Patient seen and examined with resident. Patient is a 71 year old female with history of HTN, NPH, Rheumatoid arthritis, chronic vertigo who presented after a fall and found to have EColi UTI which has been treated. Patient was initially treated in the medical floor and transferred to TCU rehabilitation unit. Patient has been participating in physical therapy. kitchen worker evaluation appreciated. Patient will continue outpatient physical therapy. Patient will follow-up with neurosurgery next week. Upon discharge patient will follow up with Dr Heaton. Diagnosis; Gait instability Vertigo Arthritis Normal pressure hydrocephalus with shunt UTI tremors
== END 2017-01-30 13:50 | disposition home or self-care (01) | DRG 690 ==
LOC: TRCU 16:02
PROVIDERS: ADMIT Internal Medicine; ATTEND Internal Medicine
PROC: F07Z9FZ Gait Training/Functional Ambulation Treatment using Assistive, Adaptive, Supportive or Protective Equipment (ICD-10-PCS; principal; 2017-01-23)
PROC: F07M6ZZ Therapeutic Exercise Treatment of Musculoskeletal System - Whole Body (ICD-10-PCS; 2017-01-23)
PROC: F08Z4ZZ Home Management Treatment (ICD-10-PCS; 2017-01-25)
DX: N39.0 Urinary tract infection, site not specified (principal); G91.2 (Idiopathic) normal pressure hydrocephalus; M06.9 Rheumatoid arthritis, unspecified; B96.20 Unspecified Escherichia coli [E. coli] as the cause of diseases classified elsewhere; E03.9 Hypothyroidism, unspecified; H35.30 Unspecified macular degeneration; H54.8 Legal blindness, as defined in USA; I10 Essential (primary) hypertension; M19.90 Unspecified osteoarthritis, unspecified site; R29.6 Repeated falls; Z87.891 Personal history of nicotine dependence; Z96.60 Presence of unspecified orthopedic joint implant; Z88.1 Allergy status to other antibiotic agents; Z88.2 Allergy status to sulfonamides; F41.9 Anxiety disorder, unspecified; F32.89 Other specified depressive episodes; R55 Syncope and collapse; R42 Dizziness and giddiness; Z98.2 Presence of cerebrospinal fluid drainage device; R25.1 Tremor, unspecified; R26.81 Unsteadiness on feet

== ENCOUNTER 2017-02-01 04:17 | Emergency (ER) | payer MEDICARE ==
[2017-02-01 04:42] VITALS: BMI 33.3
[2017-02-01] MEDS ORDERED: Lidocaine 1% Inj (20ml) ONE (05:23)
--- NOTE | 2017-02-01 05:51 | ED PDOC ---
Arrival/HPI <Omid Scales - Last Filed: 02/01/17 06:15> - General Historian: Patient - History of Present Illness Time/Duration: 1-3 hours Symptom Course: Unchanged Quality: Aching, Pressure Severity Level: 5 Activities at Onset: Rest Context: Standing <Chelsea Covarrubias - Last Filed: 02/01/17 06:59> - General Chief Complaint: Trauma Time Seen by Provider: 02/01/17 04:38 - History of Present Illness Narrative History of Present Illness (Text): 02/01/17 05:52 This is a 71Y F with PMH normal pressure hydrocephalus, multiple falls, rheumatoid arthritis, chronic vertigo who came in for fall. She was getting up out of the commode and fell on her forehead. She hit her R forehead. She denies loss of consciousness or tongue biting. When she was cleaning herself up she fell again on her forehead once again. Patient has been unsteady on her feet with history of multiple falls. She lives at home by herself. The patient complains of headache, but denies vision changes, CP, SOB, n/v/d, numbness/ tingling. It is noted that she has recently been discharged from the TCU for fall and UTI at [facility] [place]. (Chelsea Covarrubias) Past Medical History - Provider Review Nursing Documentation Reviewed: Yes - Infectious Disease Hx of Infectious Diseases: None - Tetanus Immunization Tetanus Immunization: Unknown - Reproductive Menopause: Yes - Cardiac Hx Hypertension: Yes - Pulmonary Hx Respiratory Disorders: No - Neurological Hx Dizziness: Yes Other/Comment: hydrocephalus blood clots in her brain revision to the shunt in her brain. 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 - HEENT Hx Blind: Yes Hx Macular Degeneration: Yes Other/Comment: LEGALLY BLIND - Renal Hx Renal Disorder: No - Endocrine/Metabolic Hx Hypothyroidism: Yes - Hematological/Oncological Hx Anemia: Yes (PLT transfusion 4 yrs ago w b/l knee repl) Hx Cancer: No - Integumentary Hx Dermatological Disorder: No - Musculoskeletal/Rheumatological Hx Falls: Yes Hx Rheumatoid Arthritis: Yes - Gastrointestinal Hx Gastrointestinal Disorders: Yes Hx Gastroesophageal Reflux: Yes - Genitourinary/Gynecological Hx Genitourinary Disorders: Yes (INCONTINENT) - Psychiatric Hx Anxiety: Yes Hx Depression: Yes Hx Substance Use: No - Surgical History Hx Joint Replacement: Yes Hx Orthopedic Surgery: Yes Other/Comment: brain shunt - Anesthesia Hx Anesthesia: Yes Hx Anesthesia Reactions: No Hx Malignant Hyperthermia: No - Suicidal Assessment Feels Threatened In Home Enviroment: No <Chelsea Covarrubias - Last Filed: 02/01/17 06:59> Family/Social History - Physician Review Nursing Documentation Reviewed: Yes Family/Social History: Unknown Family HX Smoking Status: Former Smoker Hx Alcohol Use: No Hx Substance Use: No Hx Substance Use Treatment: No <Chelsea Covarrubias - Last Filed: 02/01/17 06:59> Allergies/Home Meds <Omid Scales - Last Filed: 02/01/17 06:15> <Chelsea Covarrubias - Last Filed: 02/01/17 06:59> Allergies/Adverse Reactions: Allergies Sulfa (Sulfonamide Antibiotics) Allergy (Verified 01/22/17 16:11) RASH eye antibiotic Allergy (Uncoded 01/22/17 16:11) SWELLING BACITRACIN OINT AROUND EYES CAUSED FACIAL SWELLING Home Medications: Home Meds Medication Instructions Recorded Confirmed Alprazolam 0.25 mg PO Q6 PRN 08/16/14 01/26/17 Methylphenidate HCl [Ritalin] 5 mg PO BID 08/16/14 01/26/17 FLUoxetine [Prozac] 40 mg PO DAILY 11/21/16 02/01/17 Folic Acid 1 mg PO DAILY 11/21/16 02/01/17 Gabapentin [Neurontin] 100 mg PO TID 11/21/16 02/01/17 Lansoprazole 30 mg PO DAILY 11/21/16 02/01/17 Levothyroxine [Synthroid] 0.05 mg PO QOTHERDAY 11/21/16 02/01/17 Levothyroxine [Synthroid] 0.075 mg PO MWF 11/21/16 02/01/17 Meclizine HCl [Motion Sickness 25 mg PO BID 11/21/16 02/01/17 Relief] Atenolol [Tenormin] 1 tab PO DAILY 02/01/17 02/01/17 Hydroxychloroquine Sulfate 1 tab PO DAILY 02/01/17 02/01/17 [Plaquenil] levETIRAcetam [Keppra] 1 tab PO BID 02/01/17 02/01/17 Review of Systems - Review of Systems Constitutional: Normal Eyes: Normal ENT: Normal Respiratory: Normal Cardiovascular: Normal Gastrointestinal: Normal Genitourinary Female: Normal Musculoskeletal: Normal Skin: Normal Neurological: Headache Endocrine: Normal Hemo/Lymphatic: Normal Psychiatric: Normal <Chelsea Covarrubias - Last Filed: 02/01/17 06:59> Physical Exam Temperature: Afebrile Blood Pressure: Normal Pulse: Regular Respiratory Rate: Normal Appearance: Positive for: Well-Appearing, Non-Toxic, Comfortable Pain Distress: None Mental Status: Positive for: Alert and Oriented X 3 - Systems Exam Head: Present: Normocephalic, Laceration (on R forehead about 2cm in length ) Pupils: Present: PERRL Extroacular Muscles: Present: EOMI Conjunctiva: Present: Normal Mouth: Present: Moist Mucous Membranes Neck: Present: Normal Range of Motion Respiratory/Chest: Present: Clear to Auscultation, Good Air Exchange. No: Respiratory Distress, Accessory Muscle Use Cardiovascular: Present: Regular Rate and Rhythm, Normal S1, S2. No: Murmurs Abdomen: Present: Normal Bowel Sounds. No: Tenderness, Distention Upper Extremity: Present: Normal Inspection. No: Edema Lower Extremity: Present: Normal Inspection. No: Edema Neurological: Present: GCS=15, CN II-XII Intact, Speech Normal Skin: Present: Warm, Dry, Laceration (on R forehead ). No: Rashes Psychiatric: Present: Alert, Oriented x 3, Normal Insight <Chelsea Covarrubias - Last Filed: 02/01/17 06:59> Vital Signs Temp Pulse Resp BP Pulse Ox 02/01/17 06:18 52 L 16 134/41 L 100 02/01/17 04:17 97.9 F 51 L 18 122/45 L 99 Medical Decision Making <Omid Scales - Last Filed: 02/01/17 06:15> Re-evaluation Time: 06:31 Reassessment Condition: Unchanged <Chelsea Covarrubias - Last Filed: 02/01/17 06:59> ED Course and Treatment: Impression: Pt seen and evaluated with medical scribe. Pt, whose past medical history include hypertension, rheumatoid arthritis, normal pressure hydrocephalus, and hypothyroidism, presented s/p mechanical fall. Pt states she was getting up from a commode at home when she fell on to her head and sustained a laceration to the right side of her forehead. Pt states she fell a second time while cleaning her laceration. Aware and agree with HPI, clinical findings, plan, and management. Plan: -- CT Head w/o contrast -- Labs, cardiac enzymes -- Laceration repair -- Reassess and disposition Progress Notes: Laceration repair performed by medical scribe under my supervision. Pt tolerated procedure with no complications. (Omid Scales) 02/01/17 05:56 Impression: This is a 71Y F with PMH normal pressure hydrocephalus, HTN, rheumatoid arthritis, multiple falls who came to ED for fall. Differential Diagnosis included but are not limited to: mechanical fall vs. syncope vs. seizure Plan: -- Laceration repair on R upper forehead -- Head CT -- CBC, CMP, CK, Cardiac ISO -- Reassess and disposition Prior Visits: Notes and results from previous visits were reviewed. 02/01/17 06:47 Hospitalist notified. (Chelsea Covarrubias) - Lab Interpretations Lab Results: 02/01/17 06:20 Lab Results 02/01/17 06:20: Sodium 138, Potassium 4.0, Chloride 100, Carbon Dioxide 28, Anion Gap 14, BUN 15, Creatinine 0.8, Est GFR ( Amer) > 60, Est GFR (Non- Af Amer) > 60, Random Glucose 90, Calcium 9.1, Total Bilirubin 0.5, AST 28, ALT 33, Alkaline Phosphatase 93, Lactate Dehydrogenase 461, Total Creatine Kinase 91 , Troponin I Pending, Total Protein 6.9, Albumin 3.8, Globulin 3.1, Albumin/ Globulin Ratio 1.2 - RAD Interpretation Radiology Orders: 02/01/17 05:43 HEAD W/O CONTRAST [CT] Stat - Medication Orders Current Medication Orders: Discontinued Medications Lidocaine HCl (Lidocaine 1% (20ml)) Confirm Administered Dose 20 ml .ROUTE .Incomparable Things ONE Stop: 02/01/17 05:24 Procedures - Laceration/Wound Repair Right Upper Anterior Lateral Head Wound Length (cm): 2 Wound's Depth, Shape: superficial Wound Explored: clean Irrigated w/ Saline (ccs): 10 Betadine Prep?: Yes Anesthesia: 1% Lidocaine Volume Anesthetic (ccs): 2 Wound Debrided: minimal Wound Repaired With: Sutures Suture Size/Type: 3:0 Number of Sutures: 3 Layer Closure?: No Wound Complexity: Simple <Chelsea Covarrubias - Last Filed: 02/01/17 06:59> - PA / [employer] CONSULTANT / Resident Statement / has reviewed & agrees with the documentation as recorded. / has examined the patient and agrees with the treatment plan. <Omid Scales - Last Filed: 02/01/17 06:15> Disposition/Present on Arrival <Omid Scales - Last Filed: 02/01/17 06:15> - Present on Arrival Any Indicators Present on Arrival: No History of DVT/PE: No History of Uncontrolled Diabetes: No Urinary Catheter: No History of Decub. Ulcer: No History Surgical Site Infection Following: None - Disposition Have Diagnosis and Disposition been Completed?: No Disposition Time: 07:00 Patient Plan: Admission <Chelsea Covarrubias - Last Filed: 02/01/17 06:59> - Disposition Diagnosis: Fall, Near syncope, Normal pressure hydrocephalus Disposition: HOSPITALIZED Patient Problems: Current Active Problems Problem Status Onset Near syncope Acute Fall Acute Normal pressure hydrocephalus Chronic Condition: FAIR Print Language: MOLDOVAN Referrals: Aba Joseph MD [Family Provider] - Follow up with primary
[2017-02-01 06:49] LABS: ALB/GLOB RATIO 1.2 (1.1-1.8); ALKALINE PHOSPHATASE 93 U/L (38-133); ALT/SGPT 33 U/L (7-56); AST/SGOT 28 U/L (15-39); BILIRUBIN,TOTAL 0.5 mg/dL (0.2-1.3); BLOOD UREA NITROGEN 15 mg/dL (7-21); CALCIUM 9.1 mg/dL (8.4-10.5); CARBON DIOXIDE 28 mmol/L (21-33); CHLORIDE 100 mmol/L (98-107); GFR AFRICAN-AMERICAN > 60; GLUCOSE,RANDOM 90 mg/dL (70-110); SODIUM 138 mmol/L (132-148); TOTAL PROTEIN 6.9 g/dL (5.8-8.3)
[2017-02-01 07:01] LABS: TROPONIN I 0.02 ng/mL
[2017-02-01 07:12] LABS: HEMATOCRIT 34.9 % (36.0-48.0); MEAN CELL VOLUME 93.6 fL (80.0-105.0); MEAN CORPUSCULAR HEMOGLOBIN 31.4 pg (25.0-35.0); MEAN CORPUSCULAR HGB CONC 33.5 g/dl (31.0-37.0); MEAN PLATELET VOLUME 10.1 fl (7.0-11.0); WHITE BLOOD COUNT 6.1 10^3/ul (4.5-11.0)
--- NOTE | 2017-02-01 07:12 | CT ---
EXAM: CT Head Without Intravenous Contrast CLINICAL HISTORY: 71 years old, female; Injury or trauma; Fall; Initial encounter; Abrasion; Head, generalized; Prior surgery; Surgery date: 1-6 months TECHNIQUE: Axial computed tomography images of the head/brain without intravenous contrast. This CT exam was performed using one or more of the following dose reduction techniques: automated exposure control, adjustment of the mA and/or kV according to patient size, and/or use of iterative reconstruction technique. EXAM DATE/TIME: 02/01/2017 5:43 AM COMPARISON: CT - HEAD W/O CONTRAST 01/18/2017 6:58:12 AM FINDINGS: Brain: Unremarkable. No hemorrhage. No significant white matter disease. No edema. Ventricles: Ventricular shunt from right occipital approach ends in right ventricle. Ventricular dilatation. Bones/joints: Bilateral frontotemporal craniotomies. No acute fracture. Soft tissues: Unremarkable. Sinuses: Unremarkable as visualized. No acute sinusitis. Mastoid air cells: Unremarkable as visualized. No mastoid effusion. IMPRESSION: 1. No acute cerebral hemorrhage or edema. 2. Hydrocephalus and ventricular shunt, unchanged.
--- NOTE | 2017-02-01 09:21 | CP.PCM.HP ---
Addendum entered and electronically signed by Evita Rodriguez DO 02/01/17 11:06: After speaking to patient's neurosurgeon, Dr. Willett, it is decided that for further care patient is to be transferred to [facility] where Dr. Willett will be able to see patient. Patient is agreeable to be transferred. Accepting doctor at [facility] will be Dr. Willett. Patient will be transferred with the CT records for this admission and her previous admission. Patient would like her son informed. I spoke with son and explained to him the decision to transfer. Patient is stable for transfer. Original Note: <Evita Rodriguez - Last Filed: 02/01/17 11:04> History of Present Illness - History of Present Illness History of Present Illness: CC: Fall 71 year old female with past medical history of HTN, normal pressure hydrocephalus with shunt placement which is currently off, rheumatoid arthiritis , chronic vertigo presents to hospital after experiencing fall at home. Patient was recently discharged from hospital on 01/30/17 after being admitted for fall at that time as well. During her previous visit, patient was treated for UTI and transferred to TCU for further rehabilitation. She was discharged from TCU on 01/30/17 to her home. Today patient states that she woke up and had to use the bathroom. She got up quickly and fell face forward. CT of head in ED today is negative for acute changes. Patient denies having any SAUNDERS, CP, SOB, abd pain, N/V/D/C, dysuria. Patient had a forehead laceration on presentation which was sutured in ED. PMHx: stated above Sx: intracranial shunt placement, L LE arthroplasty Allergies: sulfa antibiotics, eye antibiotics Meds: see nov PMD: Dr. Joseph Neurosurgeon: Dr. Willett Neurologist: Dr. Theodore Vault Attendant: Dr. Raines Social: no tobacco, ETOH or drug use Present on Admission - Present on Admission Any Indicators Present on Admission: No Review of Systems - Review of Systems All systems: reviewed and no additional remarkable complaints except Past Patient History - Infectious Disease Hx of Infectious Diseases: None - Tetanus Immunizations Tetanus Immunization: Unknown - Past Social History Smoking Status: Former Smoker Chewing Tobacco Use: No Cigar Use: No Alcohol: None Drugs: Denies Home Situation {Lives}: Alone - CARDIAC Hx Hypertension: Yes - PULMONARY Hx Respiratory Disorders: No - NEUROLOGICAL Hx Dizziness: Yes Other/Comment: hydrocephalus blood clots in her brain revision to the shunt in her brain. 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 - HEENT Hx Blind: Yes Hx Macular Degeneration: Yes Other/Comment: LEGALLY BLIND - RENAL Hx Chronic Kidney Disease: No - ENDOCRINE/METABOLIC Hx Hypothyroidism: Yes - HEMATOLOGICAL/ONCOLOGICAL Hx Anemia: Yes (PLT transfusion 4 yrs ago w b/l knee repl) Hx Cancer: No - INTEGUMENTARY Hx Dermatological Problems: No - MUSCULOSKELETAL/RHEUMATOLOGICAL Hx Falls: Yes Hx Rheumatoid Arthritis: Yes - GASTROINTESTINAL Hx Gastrointestinal Disorders: Yes Hx Gastroesophageal Reflux: Yes - GENITOURINARY/GYNECOLOGICAL Hx Genitourinary Disorders: Yes (INCONTINENT) - PSYCHIATRIC Hx Anxiety: Yes Hx Depression: Yes Hx Substance Use: No - SURGICAL HISTORY Hx Joint Replacement: Yes Hx Orthopedic Surgery: Yes Other/Comment: brain shunt - ANESTHESIA Hx Anesthesia: Yes Hx Anesthesia Reactions: No Hx Malignant Hyperthermia: No Meds Allergies/Adverse Reactions: Allergies Allergy/AdvReac Type Severity Reaction Status Date / Time Sulfa (Sulfonamide Allergy RASH Verified 01/22/17 16:11 Antibiotics) eye antibiotic Allergy SWELLING Uncoded 01/22/17 16:11 Physical Exam - Constitutional Appears: Non-toxic, No Acute Distress - Head Exam Head Exam: ATRAUMATIC - ENT Exam ENT Exam: Mucous Membranes Moist - Respiratory Exam Respiratory Exam: Clear to Auscultation Bilateral, NORMAL BREATHING PATTERN. absent: Rales, Rhonchi, Wheezes - Cardiovascular Exam Cardiovascular Exam: REGULAR RHYTHM, +S1, +S2. absent: Diastolic murmur, Gallop , Rubs, Systolic Murmur - GI/Abdominal Exam GI & Abdominal Exam: Normal Bowel Sounds, Soft. absent: Distended, Firm, Guarding, Rigid, Tenderness - Extremities Exam Extremities exam: Negative for: pedal edema, tenderness - Neurological Exam Neurological exam: Alert, Oriented x3 Additional comments: no sensory or motor deficit. Full ROM of neck. Speech normal. - Psychiatric Exam Psychiatric exam: Normal Affect, Normal Mood - Skin Skin Exam: Dry, Intact, Normal Color, Warm Additional comments: laceration repair noted on forehead. Results - Vital Signs Recent Vital Signs: Last Vital Signs Temp 97.3 F L 02/01/17 07:21 Pulse 49 L 02/01/17 07:21 Resp 16 02/01/17 07:21 BP 121/42 L 02/01/17 07:21 Pulse Ox 95 02/01/17 07:21 - Labs Result Diagrams: 02/01/17 06:20 02/01/17 06:20 Assessment & Plan - Assessment and Plan (Free Text) Assessment: 71 year old female with past medical history of HTN, normal pressure hydrocephalus with shunt placement which is currently off, rheumatoid arthiritis , chronic vertigo is admitted for fall at home likely 2/2 normal pressure hydrocephalus. Vital signs are stable Fall - CT of head is negative - Will discuss with patient's neurosurgeon, Dr. Willett for further recommendations - Will check UA Normal pressure hydrocephalus -Will continue to monitor Rheumatoid arthritis - Continue Celebrex, Neurontin and Multivitamin HTN - Atenolol only give if HR >55 - Started Norvasc 10mg qd Hypothryoidism - Continue Synthroid Vertigo (chronic) - Continue Meclizine Anxiety - Continue Xanax, Trazodone, Fluxetine, and Ritalin Discussed with attending, Dr. Yee - Date & Time Date: 02/01/17 Time: 09:22 <Eldon Yee - Last Filed: 02/01/17 17:10> Results - Vital Signs Recent Vital Signs: Last Vital Signs Temp 97.5 F L 02/01/17 11:36 Pulse 54 L 02/01/17 11:36 Resp 18 02/01/17 11:36 BP 137/83 02/01/17 11:36 Pulse Ox 100 02/01/17 11:36 - Labs Result Diagrams: 02/01/17 06:20 02/01/17 06:20 Labs: Laboratory Results - last 24 hr 02/01/17 02/01/17 06:20 06:20 WBC 6.1 RBC 3.73 Hgb 11.7 L Hct 34.9 L MCV 93.6 MCH 31.4 MCHC 33.5 RDW 15.0 H Plt Count 256 MPV 10.1 Sodium 138 Potassium 4.0 Chloride 100 Carbon Dioxide 28 Anion Gap 14 BUN 15 Creatinine 0.8 Est GFR ( Amer) > 60 Est GFR (Non-Af Amer) > 60 Random Glucose 90 Calcium 9.1 Total Bilirubin 0.5 AST 28 ALT 33 Alkaline Phosphatase 93 Lactate Dehydrogenase 461 Total Creatine Kinase 91 Troponin I 0.02 D Total Protein 6.9 Albumin 3.8 Globulin 3.1 Albumin/Globulin Ratio 1.2 Attending/Attestation - Attestation I have personally seen and examined this patient.: Yes I have fully participated in the care of the patient.: Yes I have reviewed all pertinent clinical information: Yes Notes (Text): 02/01/17 17:05 attending note; Patient seen and examined with resident in ER. Patient is alert, awake and oriented. Denies any headache. Denies any pain. Patient is a 71 year old female with past medical history of HTN, normal pressure hydrocephalus with shunt placement which is currently off, rheumatoid arthiritis, chronic vertigo presents to hospital after experiencing fall at home. Patient was recently discharged from hospital on 01/30/17 after being admitted for fall at that time as well. During her previous visit, patient was treated for UTI and transferred to TCU for further rehabilitation. She was discharged from TCU on 01/30/[address] Currently CT head is negative. Case discussed with patient's neurosurgeon DR. Liu in detail. Patient will be transferred to [facility] for further care. diagnosis; Fall Tremors Normal pressure hydrocephalus/shunt placement Arthritis
[2017-02-01] MEDS ORDERED: Magnesium Hydroxide Susp 30 ml UD PO PRN (09:31)
[2017-02-01] MEDS ORDERED: Multivitamin Therapeutic Tab PO SCH (10:00)
[2017-02-01] MEDS ORDERED: Levothyroxine 75 MCG TAB PO SCH (10:00)
[2017-02-01] MEDS ORDERED: cycloSPORINE 0.05 % Opth Emulsion UD OU SCH (10:00)
[2017-02-01] MEDS ORDERED: Pantoprazole 40 mg EC Tab PO SCH (10:00)
[2017-02-01 10:30] VITALS: RESP 18
[2017-02-01 11:38] VITALS: BP 137/83; PULSE 54; TEMP 97.5; O2SAT 100
[2017-02-02] MEDS ORDERED: Levothyroxine 50 MCG TAB PO SCH (10:00)
[2017-02-05] MEDS ORDERED: Levothyroxine 50 MCG TAB PO SCH (10:00)
== END 2017-02-01 11:39 | disposition short-term general hospital (02) ==
LOC: ED 04:17 → ERH 06:45 → UNDOADMOB 06:45 → ERH 07:31 → ED 11:39
DX: G91.2 (Idiopathic) normal pressure hydrocephalus (principal); R55 Syncope and collapse; M06.9 Rheumatoid arthritis, unspecified; I10 Essential (primary) hypertension; Z87.891 Personal history of nicotine dependence

== ENCOUNTER 2017-03-23 14:29 | Inpatient (IN) | payer MEDICARE ==
--- NOTE | 2017-03-23 15:09 | RAD ---
HISTORY: eval for stroke COMPARISON: 01/18/2017 FINDINGS: LUNGS: No active pulmonary disease. PLEURA: No significant pleural effusion identified, no pneumothorax apparent. CARDIOVASCULAR: Normal. OSSEOUS STRUCTURES: No significant abnormalities. VISUALIZED UPPER ABDOMEN: Normal. OTHER FINDINGS: None. IMPRESSION: No active disease.
[2017-03-23 15:25] LABS: BASO # 0.03 K/mm3 (0.0-2.0); BASO % 0.5 % (0.0-3.0); EOS # 0.3 (0.0-0.7); EOS % 3.9 % (1.5-5.0); GRAN # 4.06 (1.4-6.5); GRAN % 63.9 % (50.0-68.0); HEMOGLOBIN 11.7 gm/dL (12.0-16.0); LYMPH # 1.4 (1.2-3.4); LYMPH % 21.5 % (22.0-35.0); MEAN CELL VOLUME 94.1 fL (80.0-105.0); MEAN CORPUSCULAR HEMOGLOBIN 31.4 pg (25.0-35.0); MEAN CORPUSCULAR HGB CONC 33.3 g/dl (31.0-37.0); MEAN PLATELET VOLUME 9.8 fl (7.0-11.0); MONO # 0.7 (0.1-0.6); MONO % 10.2 % (1.0-6.0); PLATELET COUNT 195 10^3/uL (120.0-450.0); RBC 3.73 10^6/uL (3.5-6.1); RED CELL DISTRIBUTION WIDTH 14.7 % (11.5-14.5); WHITE BLOOD COUNT 6.4 10^3/ul (4.5-11.0)
--- NOTE | 2017-03-23 15:26 | ED PDOC ---
Arrival/HPI - General Chief Complaint: Dizziness/Lightheaded Time Seen by Provider: 03/23/17 14:33 Historian: Patient - History of Present Illness Narrative History of Present Illness (Text): 03/23/17 15:23 Patient is a 71 yo female, past medical history of brain hemorrhage and hydrocephalus, presents to ED complaining of "feeling like my head is twisted like a pretzel", describing right sided headache, difficulty speaking and gait instability "since I woke up this morning". She states she has been having symptoms possibly for "a few days". Denies trauma. Denies fever. Denies neck pain. Denies chest pain or palpitations. Time/Duration: Other (several days, worse when awakening this morning) Symptom Onset: Gradual Symptom Course: Worsening Past Medical History - Infectious Disease Hx of Infectious Diseases: None - Tetanus Immunization Tetanus Immunization: Unknown - Cardiac Hx Hypertension: Yes - Pulmonary Hx Respiratory Disorders: No - Neurological Hx Dizziness: Yes Other/Comment: hydrocephalus blood clots in her brain revision to the shunt in her brain. 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 - HEENT Hx Blind: Yes Hx Macular Degeneration: Yes Other/Comment: LEGALLY BLIND - Renal Hx Renal Disorder: No - Endocrine/Metabolic Hx Hypothyroidism: Yes - Hematological/Oncological Hx Anemia: Yes (PLT transfusion 4 yrs ago w b/l knee repl) Hx Cancer: No - Integumentary Hx Dermatological Disorder: No - Musculoskeletal/Rheumatological Hx Falls: Yes Hx Rheumatoid Arthritis: Yes - Gastrointestinal Hx Gastrointestinal Disorders: Yes Hx Gastroesophageal Reflux: Yes - Genitourinary/Gynecological Hx Genitourinary Disorders: Yes (INCONTINENT) - Psychiatric Hx Anxiety: Yes Hx Depression: Yes Hx Substance Use: No - Surgical History Hx Joint Replacement: Yes Hx Orthopedic Surgery: Yes Other/Comment: brain shunt - Anesthesia Hx Anesthesia: Yes Hx Anesthesia Reactions: No Hx Malignant Hyperthermia: No - Suicidal Assessment Feels Threatened In Home Enviroment: No Family/Social History Family/Social History: Unknown Family HX Smoking Status: Former Smoker Hx Alcohol Use: No Hx Substance Use: No Hx Substance Use Treatment: No Allergies/Home Meds Allergies/Adverse Reactions: Allergies Sulfa (Sulfonamide Antibiotics) Allergy (Verified 01/22/17 16:11) RASH eye antibiotic Allergy (Uncoded 01/22/17 16:11) SWELLING BACITRACIN OINT AROUND EYES CAUSED FACIAL SWELLING Home Medications: Home Meds Medication Instructions Recorded Confirmed Alprazolam 0.25 mg PO Q6 PRN 08/16/14 01/26/17 Methylphenidate HCl [Ritalin] 5 mg PO BID 08/16/14 01/26/17 FLUoxetine [Prozac] 40 mg PO DAILY 11/21/16 02/01/17 Folic Acid 1 mg PO DAILY 11/21/16 02/01/17 Gabapentin [Neurontin] 100 mg PO TID 11/21/16 02/01/17 Lansoprazole 30 mg PO DAILY 11/21/16 02/01/17 Levothyroxine [Synthroid] 0.05 mg PO QOTHERDAY 11/21/16 02/01/17 Levothyroxine [Synthroid] 0.075 mg PO MWF 11/21/16 02/01/17 Meclizine HCl [Motion Sickness 25 mg PO BID 11/21/16 02/01/17 Relief] Atenolol [Tenormin] 1 tab PO DAILY 02/01/17 02/01/17 Hydroxychloroquine Sulfate 1 tab PO DAILY 02/01/17 02/01/17 [Plaquenil] levETIRAcetam [Keppra] 1 tab PO BID 02/01/17 02/01/17 Review of Systems - Review of Systems Constitutional: Fatigue. absent: Fevers Eyes: Vision Changes. absent: Photophobia, Eye Pain ENT: absent: Hearing Changes, Sore Throat Respiratory: absent: SOB, Cough Cardiovascular: absent: Chest Pain, Palpitations, Edema, KELLY Gastrointestinal: absent: Abdominal Pain, Nausea, Vomiting Genitourinary Female: absent: Dysuria, Frequency, Hematuria Musculoskeletal: absent: Neck Pain Skin: absent: Rash Neurological: Headache, Dizziness, Gait Changes, Disequilibrium. absent: Seizure Endocrine: absent: Polyuria Hemo/Lymphatic: absent: Easy Bleeding Psychiatric: absent: Depression Physical Exam - Physical Exam Narrative Physical Exam (Text): Head: No facial bony tenderness or edema. Normocephalic. Eyes: PERRL. EOMI. Conjunctivae are not pale. ENT: Mucous membranes are moist and intact. Oropharynx is clear and symmetric. Neck: Supple. Full ROM. No JVD. No lymphadenopathy. Cardiovascular: Regular rate. Regular rhythm. Systolic murmur, distal pulses intact. Pulmonary/Chest: No evidence of respiratory distress. Clear to auscultation bilaterally. No wheezing, rales or rhonchi. Abdominal: Soft and non-distended. There is no tenderness. No rebound, guarding, or rigidity. No organomegaly. Good bowel sounds. Back: No CVA tenderness. Extremities: Leg edema. No cyanosis. No clubbing. Full range of motion in all extremities. No calf tenderness. Fullrange of motion at hip and knee and ankle. Skin: Skin is warm and dry. No petechiae. No purpura. Neurological: Alert, awake, and oriented to person, place, time, and situation. Somewhat slow speech however she is able to articulate, mildly slurred at times. No facial droop. No pronator drift. Gait instability described. No focal weakness. No sensory deficits.. Psychiatric: Good eye contact. Normal interaction, affect, and behavior. Vital Signs Reviewed: Yes Vital Signs Temp Pulse Resp BP Pulse Ox 03/23/17 19:48 62 17 100 03/23/17 19:17 54 L 14 133/50 L 100 03/23/17 16:45 54 L 15 129/55 L 100 03/23/17 14:47 97.6 F 61 16 135/59 L 100 Temperature: Afebrile Appearance: Positive for: Uncomfortable Pain Distress: Mild Mental Status: Positive for: Alert and Oriented X 3 Finger Stick Blood Glucose: 146 Medical Decision Making ED Course and Treatment: Patient seen upon arrival. She states she has had symptoms BEFORE this morning, somewhat worse today. Not thunderclap or worst headache of life, but she has significant past neurological history and has had recent evaluation by her neurosurgeon Dr. Willett, from [facility]. Initial exam reveals she is alert, mild speech difficulty from her baseline. Report Date : 03/23/2017 15:08:05 Procedure: Chest xray Dictator : Tung Raygoza MD IMPRESSION: No active disease. Report Date : 03/23/2017 15:37:28 PROCEDURE: CT HEAD WITHOUT CONTRAST. Dictator : Tung Raygoza MD IMPRESSION: Ventriculomegaly and right sided ventricular shunt. Degree of ventriculomegaly is unchanged compared to prior CT examination. No intracranial mass or hemorrhage. No evidence of acute infarct. Bilateral craniotomy flaps. On re-examination, patient states she "feels better" with improvement in her headache, she appears to be improved with her speech as well. Afebrile. No focal acute weakness appreciated. I did review her past admission as well as her current CT head as well as her recent outpatient CT in March as ordered by Dr. Willett. I discussed her symptoms and exam and reviewed her current CT as well as her most recent prior CT with her neurosurgical team covering for Dr. Willett, I discussed case in depth wtih Dr. Shaun Walker, and reviewed exam and imaging studies. Serial exams continued here in the ED and she continues to have improved symptoms. I also communicated with her neurologist, Dr. Theodore. As her ct is "unchanged" and has bee reviewed with her neurosurgeons, and as her symptoms have improved and not progressed with serial exams in ED, patient and admitting team agreeable to admission at [facility] for monitoring of symptoms and serial neurologic exams. 03/23/17 18:29 - Lab Interpretations Lab Results: 03/23/17 15:00 03/23/17 15:00 Lab Results 03/23/17 15:00: Blood Type O POSITIVE, Antibody Screen Negative, BBK History Checked Patient has bt 03/23/17 15:00: Hemoglobin A1c 5.7 03/23/17 15:00: Sodium 131 L, Potassium 4.3, Chloride 101, Carbon Dioxide 22, Anion Gap 12, BUN 16, Creatinine 0.7, Est GFR ( Amer) > 60, Est GFR (Non- Af Amer) > 60, Random Glucose 140 H, Calcium 8.5, Total Bilirubin 0.4, AST 28, ALT 28, Alkaline Phosphatase 96, Troponin I < 0.01 D, Total Protein 6.3, Albumin 3.8, Globulin 2.6, Albumin/Globulin Ratio 1.5, Triglycerides 158, Cholesterol 188, LDL Cholesterol Direct 108, HDL Cholesterol 52 03/23/17 15:00: PT 10.6, INR 0.98, APTT 32.2 H 03/23/17 15:00: WBC 6.4, RBC 3.73, Hgb 11.7 L, Hct 35.1 L, MCV 94.1, MCH 31.4, MCHC 33.3, RDW 14.7 H, Plt Count 195, MPV 9.8, Gran % 63.9, Lymph % (Auto) 21.5 L, [place] % (Auto) 10.2 H, Eos % (Auto) 3.9, Baso % (Auto) 0.5, Gran # 4.06, Lymph # 1.4, [place] # 0.7 H, Eos # 0.3, Baso # 0.03 03/23/17 14:57: POC Glucose (mg/dL) 146 H - RAD Interpretation Radiology Orders: 03/23/17 14:43 HEAD W/O CONTRAST [CT] Stat CHEST PORTABLE [RAD] Stat [employer] Classroom Teacher: Radiologist - EKG Interpretation EKG Interpretation (Text): EKG at 14:42 sinus bradycardia rate of 58 Interpreted by ED Physician: Yes Type: 12 lead EKG - Medication Orders Current Medication Orders: Discontinued Medications Furosemide (Lasix) 40 mg IVP STAT STA Stop: 03/23/17 20:46 Disposition/Present on Arrival - Present on Arrival Any Indicators Present on Arrival: No History of DVT/PE: No History of Uncontrolled Diabetes: No Urinary Catheter: No History of Decub. Ulcer: No History Surgical Site Infection Following: None - Disposition Have Diagnosis and Disposition been Completed?: Yes Diagnosis: Headache, Hydrocephalus Disposition: HOSPITALIZED Disposition Time: 17:00 Patient Plan: Admission, Telemetry Patient Problems: Current Active Problems Problem Status Onset Headache Acute Hydrocephalus Acute Condition: SERIOUS
[2017-03-23 15:32] LABS: INR 0.98 (0.93-1.08); PARTIAL THROMBOPLASTIN TIME 32.2 Seconds (23.7-30.8); PROTHROMBIN TIME 10.6 Seconds (9.9-11.8)
--- NOTE | 2017-03-23 15:38 | CT ---
PROCEDURE: CT HEAD WITHOUT CONTRAST. HISTORY: headache, slurred speech COMPARISON: 03/08/2017 TECHNIQUE: Axial computed tomography images were obtained through the head/brain without intravenous contrast. Radiation dose: Total exam DLP = 746.08 mGy-cm. This CT exam was performed using one or more of the following dose reduction techniques: Automated exposure control, adjustment of the mA and/or kV according to patient size, and/or use of iterative reconstruction technique. FINDINGS: HEMORRHAGE: No intracranial hemorrhage. BRAIN: No mass effect or edema. No atrophy or chronic microvascular ischemic changes. VENTRICLES: There is ventriculomegaly. The extent of ventriculomegaly is unchanged compared to prior CT examination. There is a right ventricular shunt entering through the right occipital parietal calvarium and terminating adjacent to the interventricular septum. CALVARIUM: Left frontal and right frontoparietal craniotomy flaps. PARANASAL SINUSES: Unremarkable as visualized. No significant inflammatory changes. MASTOID AIR CELLS: Unremarkable as visualized. No inflammatory changes. OTHER FINDINGS: None. IMPRESSION: Ventriculomegaly and right sided ventricular shunt. Degree of ventriculomegaly is unchanged compared to prior CT examination. No intracranial mass or hemorrhage. No evidence of acute infarct. Bilateral craniotomy flaps.
[2017-03-23 15:44] LABS: ALB/GLOB RATIO 1.5 (1.1-1.8); ALBUMIN 3.8 g/dL (3.0-4.8); ALT/SGPT 28 U/L (7-56); AST/SGOT 28 U/L (15-39); BLOOD UREA NITROGEN 16 mg/dL (7-21); CALCIUM 8.5 mg/dL (8.4-10.5); GFR AFRICAN-AMERICAN > 60; GFR NON-AFRICAN AMERICAN > 60; HDL CHOLESTEROL 52 mg/dL (29-60)
[2017-03-23 15:55] LABS: LDL CHOLESTEROL 108 mg/dL (0-129)
[2017-03-23 15:57] LABS: TROPONIN I < 0.01 ng/mL
[2017-03-23 22:53] VITALS: BMI 34.7
[2017-03-23] MEDS ORDERED: Magnesium Hydroxide Susp 30 ml UD PO PRN (23:06)
[2017-03-24] MEDS: cycloSPORINE 0.05 % Opth Emulsion UD OU SCH ×4 (00:10→21:15)
--- NOTE | 2017-03-24 03:46 | CP.PCM.HP ---
<Mike Zuñiga Avtar - Last Filed: 03/24/17 03:51> History of Present Illness - History of Present Illness History of Present Illness: Mike Zuñiga DO PGY-I CC: R Sided Face Tightness HPI: Ms. 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 She stated that this occurred on and off for two days, but when she woke up today it was persistent, which is why she came to the ED. Ms. Yan denies previous such episodes, despite having a significant neurological history. Patient described the episodes as being almost seizure like, though she denies any history of seizure disorder. In addition to her CC, Ms. Yan also stated that she was experiencing new- onset right foot muscle spasms in which her right foot was inverting and deviating medially. This began occurring while she was in the ED and was coinciding with her facial spasms. Of note, Ms. Yan also described new-onset b/l LE swelling, which she attributed to being less ambulatory. She denied associated shortness of breath. Patient denied fevers, chills, nausea, vomiting, diarrhea, chest pain, shortness of breath, loss of vision, loss of bowel or bladder, and urinary symptoms. PSHx: B/l TKR, RU[employer] C[employer] shunt placement and plug PMHx: NPH s/p shunt, RA, CAD, HTN, Hypothyroid, Depression, Anxiety, Gait Disorder, Chronic Vertigo, Urinary Frequency; and history of: UTIs, Unknown bleeding disorder, Falls All: Sulfa SocHx: Denies EtOH, Illicits; former smoker FamHx: Non-contributory Meds: Acetaminophen, Alprazolam, Atenolol, Cyclosporine, Fluoxetine, Folic Acid , Gabapentin, Plaquenil, Keppra, Synthroid, Mg Hydroxide, Meclizine, Ritalin, Multivitamins, Protonix, Desyrel Present on Admission - Present on Admission Any Indicators Present on Admission: No Review of Systems - Review of Systems Review of Systems: ROS: Constitutional: pt denies fever, chills, generalized weakness ENT: pt denies dysphagia, ofalgia, hearing deficit, rhinorrhea Eyes: pt denies sudden loss of vision, diplopia, blurred vision MSK: +Pt admits R LE spasm; pt denies muscle stiffness, joint pain, extremity cramping Cardio: pt denies sob, palpitations, CP Pulm: pt denies cough, hemoptysis, wheeze GI: pt denies loss of appetite, abdominal pain, constipation, melena, n/v/d : pt denies burning on urination, hematuria Neuro: +see hpi; pt denies ahumada, numbness, tingling Derm: pt denies skin changes, lesions, nail changes Endo: pt denies intolerance to heat/cold, diaphoresis, night sweats, polydipsia Psych: pt denies anxiety, depression, mood changes Past Patient History - Infectious Disease Hx of Infectious Diseases: None - Tetanus Immunizations Tetanus Immunization: Unknown - Past Social History Smoking Status: Former Smoker - CARDIAC Hx Hypertension: Yes - PULMONARY Hx Respiratory Disorders: No - NEUROLOGICAL Hx Dizziness: Yes Other/Comment: hydrocephalus blood clots in her brain revision to the shunt in her brain. 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 - HEENT Hx Blind: Yes Hx Macular Degeneration: Yes Other/Comment: LEGALLY BLIND - RENAL Hx Chronic Kidney Disease: No - ENDOCRINE/METABOLIC Hx Hypothyroidism: Yes - HEMATOLOGICAL/ONCOLOGICAL Hx Anemia: Yes (PLT transfusion 4 yrs ago w b/l knee repl) Hx Cancer: No - INTEGUMENTARY Hx Dermatological Problems: No - MUSCULOSKELETAL/RHEUMATOLOGICAL Hx Falls: Yes Hx Rheumatoid Arthritis: Yes - GASTROINTESTINAL Hx Gastrointestinal Disorders: Yes Hx Gastroesophageal Reflux: Yes - GENITOURINARY/GYNECOLOGICAL Hx Genitourinary Disorders: Yes (INCONTINENT) - PSYCHIATRIC Hx Anxiety: Yes Hx Depression: Yes Hx Substance Use: No - SURGICAL HISTORY Hx Joint Replacement: Yes Hx Orthopedic Surgery: Yes Other/Comment: brain shunt - ANESTHESIA Hx Anesthesia: Yes Hx Anesthesia Reactions: No Hx Malignant Hyperthermia: No Meds Allergies/Adverse Reactions: Allergies Allergy/AdvReac Type Severity Reaction Status Date / Time Sulfa (Sulfonamide Allergy RASH Verified 01/22/17 16:11 Antibiotics) eye antibiotic Allergy SWELLING Uncoded 01/22/17 16:11 Physical Exam - Additional Findings Additional findings: Physical Exam: VS as outlined Constitutional: pleasant female, a&o x 4, nad Head and Neck: neck supple, no jvd, trachea midline, carotid midline,no cervical /head mass Eyes: kim, nonicteric sclera, eom intact ENT: auditory acuity grossly intact, throat not congested, no nasal deformity Cardio: +systolic murmur at aortic listening post; rrr, no r/g, no carotid bruit , nml s1, s2 Pulm: no accessory muscle use, equal nml breath sounds bilaterally, ctab Abd: s/nt/nd, nbs x 4 q, no palpable masses Derm: no rashes, no ulcers, no lesions Extr: +1+ bilateral pitting edema in LE; no cyanosis, no calf tenderness, no lesions, no varicosities Neuro: +non-cerebellar tremor UE b/l; cn II-XII grossly intact, ue and le 3+ muscle strength bilaterally, no los ue, le bilaterally and core, 2+ reflexes bilaterally Results - Vital Signs Recent Vital Signs: Last Vital Signs Temp 98.0 F 03/23/17 22:23 Pulse 58 L 03/23/17 22:23 Resp 20 03/23/17 22:23 BP 152/70 H 03/23/17 22:23 Pulse Ox 100 03/23/17 19:48 - Labs Result Diagrams: 03/23/17 15:00 03/23/17 15:00 Assessment & Plan - Assessment and Plan (Free Text) Assessment: A/P: Ms. 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 She also c/o experiencing new-onset right foot muscle spasms in which her right foot was inverting and deviating medially. 1.) R Sided Cephalic Tightness possibly 2/2 Primidone Tx VS NPH VS Unknown Etiology - Neuro on c/s - Head CT normal - Hold Primidone 2.) R LE Spasm possibly 2/2 Primidone Tx VS NPH VS Unknown Etiology - Neuro on c/s - Hold Primidone 3.) B/L LE Swelling possibly 2/2 limited mobility - No clinical signs of DVT - No clinical signs of PE - No ECHO ordered may consider if patient complains of SOB or other sx of CHF - Encourage patient ambulation 4.) Hyperglycemia on Admission - Glc 146 on admission, then 140 - HbA1C 5.7 - Check fingerstick glc q8 5.) Hyponatremia on Admission possibly 2/2 fluid overload VS Unknown Etiology - 131 on admission - Check AM labs 6.) Hx/O CAD - F/U outpatient 7.) Hx/O NPH s/p shunt - Neuro on c/s 8.) Hx/O HTN - Continue home Atenolol 25 mg PO qD 9.) Hx/O Unknown bleeding disorder - F/U outpatient with PCP - APTT prolonged - Follow H&H; patient seems to be around baseline upon admission, 11.7/35.1 - Patient on heparin, so follow closely 10.) Hx/O Falls - Place patient on medium fall risk protocol 11.) Hx/O Hypothyroidism - Continue home Levothyroxine 75mcg PO M/W/ and Levothyroxine 50 mcg PO T/R/ Sa/William 12.) Hx/O RA - Continue home Restasis 1 ea OU q12; Continue Plaquenil 200 mg PO qD 13.) Hx/O Gait Disorder 14.) Hx/O Chronic Vertigo - Continue home Antivert 25 mg PO bid 15.) Hx/O Depression - Continue home Fluoxetine 40 mg PO qD - Continue home Trazodone 50 mg PO hs 16.) Hx/O Anxiety - Continue home Alprazolam .25 mg PO q6 - Continue home Ritalin 5 mg PO bid 17.) Hx/O Urinary Frequency 18.) Hx/O UTIs - U/A ordered 19.) Hx/O GERD - Continue home Pantoprazole 40 mg PO acb 20.) AM Labs - CBC, BMP, 21.) DVT PPHXS - Heparin 1000 q8 sc <Torsten Weber P - Last Filed: 04/02/17 06:29> Results - Vital Signs Recent Vital Signs: Last Vital Signs Temp 97 F L 03/25/17 16:37 Pulse 58 L 03/25/17 18:00 Resp 16 03/25/17 16:37 BP 132/85 03/25/17 16:37 Pulse Ox 99 03/25/17 16:37 - Labs Result Diagrams: 03/25/17 07:20 03/25/17 07:22 Attending/Attestation - Attestation I have personally seen and examined this patient.: Yes I have fully participated in the care of the patient.: Yes I have reviewed all pertinent clinical information: Yes
[2017-03-24] MEDS ORDERED: Levothyroxine 75 MCG TAB PO SCH (06:30)
[2017-03-24] MEDS: Pantoprazole 40 mg EC Tab PO SCH (08:20)
[2017-03-24 08:28] LABS: HEMOGLOBIN 13.1 gm/dL (12.0-16.0); MEAN CELL VOLUME 94.5 fL (80.0-105.0); MEAN CORPUSCULAR HEMOGLOBIN 31.2 pg (25.0-35.0); MEAN PLATELET VOLUME 9.6 fl (7.0-11.0); RBC 4.2 10^6/uL (3.5-6.1); RED CELL DISTRIBUTION WIDTH 14.9 % (11.5-14.5); WHITE BLOOD COUNT 4.7 10^3/ul (4.5-11.0)
[2017-03-24 08:37] LABS: ALB/GLOB RATIO 1.4 (1.1-1.8); ALBUMIN 3.9 g/dL (3.0-4.8); ALT/SGPT 35 U/L (7-56); AST/SGOT 26 U/L (15-39); BLOOD UREA NITROGEN 10 mg/dL (7-21); GFR AFRICAN-AMERICAN > 60; GFR NON-AFRICAN AMERICAN > 60
[2017-03-24] MEDS ORDERED: Aritificial Tears (15ml) OU PRN (09:09)
[2017-03-24 09:13] LABS: MAGNESIUM 2.1 mg/dL (1.7-2.2)
[2017-03-24] MEDS: Multivitamin Therapeutic Tab PO SCH (09:31)
--- NOTE | 2017-03-24 10:17 | CARD ---
APPROVED REPORT EKG Measurement Heart [id number] <Conclusion> Sinus bradycardia No change
[2017-03-25] MEDS ORDERED: Levothyroxine 50 MCG TAB PO SCH (06:30)
[2017-03-25 06:40] VITALS: O2SAT 99
[2017-03-25 06:55] LABS: PH,URINE 7.5 (4.7-8.0); URINE BILIRUBIN NEGATIVE (NEGATIVE); URINE BLOOD NEGATIVE (NEGATIVE); URINE GLUCOSE (UA) NEGATIVE (NEGATIVE); URINE LEUKOCYTE ESTERASE NEGATIVE Leu/uL (NEGATIVE); URINE NITRATE NEGATIVE (NEGATIVE); URINE PROTEIN NEGATIVE mg/dL (<30 mg/dL); URINE UROBILINOGEN 0.2 E.U./dL (<1 E.U./dL)
[2017-03-25 07:00] LABS: URINE APPEARANCE CLEAR (CLEAR); URINE COLOR YELLOW (YELLOW)
[2017-03-25 07:26] LABS: HEMOGLOBIN 12.7 gm/dL (12.0-16.0); MEAN CELL VOLUME 93.5 fL (80.0-105.0); MEAN CORPUSCULAR HEMOGLOBIN 30.7 pg (25.0-35.0); MEAN CORPUSCULAR HGB CONC 32.8 g/dl (31.0-37.0); MEAN PLATELET VOLUME 9.9 fl (7.0-11.0); RBC 4.14 10^6/uL (3.5-6.1); RED CELL DISTRIBUTION WIDTH 14.8 % (11.5-14.5); WHITE BLOOD COUNT 4.9 10^3/ul (4.5-11.0)
[2017-03-25 07:39] LABS: ALB/GLOB RATIO 1.4 (1.1-1.8); ALBUMIN 3.8 g/dL (3.0-4.8); ALT/SGPT 31 U/L (7-56); AST/SGOT 29 U/L (15-39); BLOOD UREA NITROGEN 15 mg/dL (7-21); CALCIUM 8.8 mg/dL (8.4-10.5); GFR AFRICAN-AMERICAN > 60; GFR NON-AFRICAN AMERICAN > 60; MAGNESIUM 2.2 mg/dL (1.7-2.2)
[2017-03-25] MEDS: Pantoprazole 40 mg EC Tab PO SCH (08:49)
[2017-03-25] MEDS: Multivitamin Therapeutic Tab PO SCH (09:42)
[2017-03-25 12:00] VITALS: TEMP 97
--- NOTE | 2017-03-25 13:37 | CP.PCM.CON ---
<Ameya Antonio - Last Filed: 03/25/17 13:38> History of Present Illness - History of Present Illness History of Present Illness: PGY-[address] Lorenzo Kapad[facility] Neurology [facility] Reason for Consult: NPH with facial tightness and spasms This is a 71 year old female with PMHx NPH s/p BAKERY HELPER shunt, rheumatoid arthritis, chronic vertigo, hypothyroidism who presented with complaint of right sided facial muscle tightening and spasms for two days prior to admission. This occurred intermittently, however on date of admission, it became persistent. No previous episodes. Patient states that it feels like it she is about to have a seizure despite no prior history. It resolved during the hospital stay but the patient reported that it occurred again this morning. Patient denies weakness, numbness, tingling, headaches, dizziness. PMHx: NPH s/p shunt, RA, CAD, HTN, Hypothyroid, anxiety, depression, chronic vertigo, UTI, falls, unknown bleeding disorder PSHx: b/l TKA, BAKERY HELPER shunt placement and plug Allergies: Sulfa Social: Former smoker. Denies alcohol, drugs. Home Meds: As per EMR Review of Systems - Constitutional Constitutional: absent: Weakness - EENT Eyes: absent: Change in Vision Ears: absent: Decreased Hearing - Cardiovascular Cardiovascular: absent: Chest Pain - Respiratory Respiratory: absent: Dyspnea - Gastrointestinal Gastrointestinal: absent: Abdominal Pain - Genitourinary Genitourinary: absent: Dysuria - Musculoskeletal Musculoskeletal: Muscle Weakness (right ankle weakness), Other (facial spasms) - Neurological Neurological: absent: Dizziness, Numbness, Headaches, Tingling Past Patient History - Infectious Disease Hx of Infectious Diseases: None - Tetanus Immunizations Tetanus Immunization: Unknown - Past Social History Smoking Status: Former Smoker - CARDIAC Hx Hypertension: Yes - PULMONARY Hx Respiratory Disorders: No - NEUROLOGICAL Hx Dizziness: Yes Other/Comment: hydrocephalus blood clots in her brain revision to the shunt in her brain. 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 - HEENT Hx Blind: Yes Hx Macular Degeneration: Yes Other/Comment: LEGALLY BLIND - RENAL Hx Chronic Kidney Disease: No - ENDOCRINE/METABOLIC Hx Hypothyroidism: Yes - HEMATOLOGICAL/ONCOLOGICAL Hx Anemia: Yes (PLT transfusion 4 yrs ago w b/l knee repl) Hx Cancer: No - INTEGUMENTARY Hx Dermatological Problems: No - MUSCULOSKELETAL/RHEUMATOLOGICAL Hx Falls: Yes Hx Rheumatoid Arthritis: Yes - GASTROINTESTINAL Hx Gastrointestinal Disorders: Yes Hx Gastroesophageal Reflux: Yes - GENITOURINARY/GYNECOLOGICAL Hx Genitourinary Disorders: Yes (INCONTINENT) - PSYCHIATRIC Hx Anxiety: Yes Hx Depression: Yes Hx Substance Use: No - SURGICAL HISTORY Hx Joint Replacement: Yes Hx Orthopedic Surgery: Yes Other/Comment: brain shunt - ANESTHESIA Hx Anesthesia: Yes Hx Anesthesia Reactions: No Hx Malignant Hyperthermia: No Meds Allergies/Adverse Reactions: Allergies Allergy/AdvReac Type Severity Reaction Status Date / Time Sulfa (Sulfonamide Allergy RASH Verified 01/22/17 16:11 Antibiotics) eye antibiotic Allergy SWELLING Uncoded 01/22/17 16:11 - Medications Medications: Current Medications Acetaminophen (Tylenol 325mg Tab) 650 mg PO Q6 PRN PRN Reason: Fever >100.4 F Last Admin: 03/24/17 10:42 Dose: 650 mg Alprazolam (Xanax) 0.25 mg PO Q6 PRN; Protocol PRN Reason: Agitation Stop: 03/30/17 23:07 Artificial Tears (Artificial Tears) 0 ml OU BID PRN PRN Reason: Dry eyes Last Admin: 03/24/17 21:18 Dose: 1 drop Atenolol (Tenormin) 12.5 mg PO DAILY [facility] Last Admin: 03/25/17 09:44 Dose: 12.5 mg Cyclobenzaprine HCl (Flexeril) 2.5 mg PO TID PRN PRN Reason: Other Cyclosporine (Restasis) 1 ea OU Q12 [facility] Last Admin: 03/24/17 21:15 Dose: Not Given Fluoxetine HCl (Prozac) 40 mg PO DAILY [facility] Last Admin: 03/25/17 09:41 Dose: 40 mg Folic Acid (Folic Acid) 1 mg PO DAILY [facility] Last Admin: 03/25/17 09:44 Dose: 1 mg Gabapentin (Neurontin) 100 mg PO TID [facility] PRN Reason: Protocol Last Admin: 03/25/17 09:42 Dose: 100 mg Heparin Sodium (Porcine) (Heparin) 5,000 units SC Q8 [facility] PRN Reason: Protocol Last Admin: 03/25/17 05:43 Dose: 5,000 units Hydroxychloroquine Sulfate (Plaquenil) 200 mg PO DAILY [facility] Last Admin: 03/25/17 09:44 Dose: 200 mg Levetiracetam (Keppra) 500 mg PO BID [facility] Last Admin: 03/25/17 09:41 Dose: 500 mg Levothyroxine Sodium (Synthroid) 50 mcg PO SuTuThSa@0630 [facility] Last Admin: 03/25/17 05:43 Dose: 50 mcg Levothyroxine Sodium (Synthroid) 75 mcg PO MoWeFr@0630 [facility] Last Admin: 03/24/17 05:40 Dose: 75 mcg Magnesium Hydroxide (Milk Of Magnesia) 30 ml PO DAILY PRN PRN Reason: Constipation Last Admin: 03/24/17 18:11 Dose: 30 ml Meclizine HCl (Antivert) 25 mg PO BID [facility] Last Admin: 03/25/17 09:40 Dose: 25 mg Methylphenidate HCl (Ritalin) 5 mg PO BID [facility] Last Admin: 03/25/17 09:42 Dose: 5 mg Multivitamins (Thera Tab) 1 tab PO DAILY [facility] Last Admin: 03/25/17 09:42 Dose: 1 tab Pantoprazole Sodium (Protonix Ec Tab) 40 mg PO ACB [facility] Last Admin: 03/25/17 08:49 Dose: 40 mg Trazodone HCl (Desyrel) 50 mg PO HS [facility] Last Admin: 03/24/17 21:18 Dose: 50 mg Physical Exam - Head Exam Head Exam: ATRAUMATIC Additional comments: Small depression on the head s/p BAK[employer] HEL[employer] shunt placement and plug - Eye Exam Eye Exam: EOMI, PERRL - ENT Exam ENT Exam: Mucous Membranes Moist - Respiratory Exam Respiratory Exam: absent: Clear to Auscultation Bilateral - Cardiovascular Exam Cardiovascular Exam: REGULAR RHYTHM - GI/Abdominal Exam GI & Abdominal Exam: Normal Bowel Sounds, Soft - Extremities Exam Additional comments: Right partial foot drop - Neurological Exam Neurological exam: Alert, CN II-XII Intact, Oriented x3 Additional comments: Muscle strength testing 5/5 b/l upper and lower extremities. Reflexes 3/4 bilateral upper extremities and 1/4 bilateral lower extremities. Sensation to light touch intact bilateral upper and lower extremities. Down-going plantar response bilaterally. Finger to Nose test normal. No pronator drift. Results - Vital Signs Recent Vital Signs: Last Vital Signs Temp 97 F L 03/25/17 11:59 Pulse 90 03/25/17 11:59 Resp 18 03/25/17 11:59 BP 149/54 L 03/25/17 11:59 Pulse Ox 99 03/25/17 06:00 - Labs Result Diagrams: 03/25/17 07:20 03/25/17 07:22 Labs: Laboratory Results - last 24 hr 03/24/17 03/24/17 03/24/17 11:07 16:12 21:13 WBC RBC Hgb Hct MCV MCH MCHC RDW Plt Count MPV Sodium Potassium Chloride Carbon Dioxide Anion Gap BUN Creatinine Est GFR ( Amer) Est GFR (Non-Af Amer) POC Glucose (mg/dL) 88 107 84 Random Glucose Calcium Phosphorus Magnesium Total Bilirubin AST ALT Alkaline Phosphatase Total Protein Albumin Globulin Albumin/Globulin Ratio Urine Color Urine Appearance Urine pH Ur Specific [place] Urine Protein Urine Glucose (UA) Urine Ketones Urine Blood Urine Nitrate Urine Bilirubin Urine Urobilinogen Ur Leukocyte Esterase 03/25/17 03/25/17 03/25/17 06:00 07:20 07:22 WBC 4.9 RBC 4.14 Hgb 12.7 Hct 38.7 MCV 93.5 MCH 30.7 MCHC 32.8 RDW 14.8 H Plt Count 210 MPV 9.9 Sodium 140 Potassium 4.7 Chloride 105 Carbon Dioxide 25 Anion Gap 15 BUN 15 Creatinine 0.7 Est GFR ( Amer) > 60 Est GFR (Non-Af Amer) > 60 POC Glucose (mg/dL) Random Glucose 82 Calcium 8.8 Phosphorus 4.0 Magnesium 2.2 Total Bilirubin 0.5 AST 29 ALT 31 Alkaline Phosphatase 88 Total Protein 6.4 Albumin 3.8 Globulin 2.6 Albumin/Globulin Ratio 1.4 Urine Color Yellow Urine Appearance Clear Urine pH 7.5 Ur Specific [place] 1.010 Urine Protein Negative Urine Glucose (UA) Negative Urine Ketones Negative Urine Blood Negative Urine Nitrate Negative Urine Bilirubin Negative Urine Urobilinogen 0.2 Ur Leukocyte Esterase Negative 03/25/17 03/25/17 07:24 11:16 WBC RBC Hgb Hct MCV MCH MCHC RDW Plt Count MPV Sodium Potassium Chloride Carbon Dioxide Anion Gap BUN Creatinine Est GFR ( Amer) Est GFR (Non-Af Amer) POC Glucose (mg/dL) 66 100 Random Glucose Calcium Phosphorus Magnesium Total Bilirubin AST ALT Alkaline Phosphatase Total Protein Albumin Globulin Albumin/Globulin Ratio Urine Color Urine Appearance Urine pH Ur Specific [place] Urine Protein Urine Glucose (UA) Urine Ketones Urine Blood Urine Nitrate Urine Bilirubin Urine Urobilinogen Ur Leukocyte Esterase Assessment & Plan - Assessment and Plan (Free Text) Assessment: This is a 71 year old female with PMHx NPH s/p BAK[employer] HEL[employer] shunt, rheumatoid arthritis, chronic vertigo, hypothyroidism who presented with complaint of right sided facial muscle tightening and spasms for two days prior to admission. This transient spasm is likely secondary to tension/stress reaction. Unlikely to be seizure. Plan: 1) Although unlikely to be seizure, would recommend increasing Keppra from 500 mg BID to Keppra 750 mg BID. 2) Avoid ritalin as it can exacerbate the spasms. 3) Continue Gabapentin. 4) Avoid sedating medications. 5) Follow up with her neurologist Dr. Theodore as an outpatient. Case discussed with Dr. Kang Antonio, PGY-1 - Date & Time Date: 03/25/17 Time: 12:00 <Lorenzo Kapadia - Last Filed: 03/25/17 14:35> Meds - Medications Medications: Current Medications Acetaminophen (Tylenol 325mg Tab) 650 mg PO Q6 PRN PRN Reason: Fever >100.4 F Last Admin: 03/24/17 10:42 Dose: 650 mg Alprazolam (Xanax) 0.25 mg PO Q6 PRN; Protocol PRN Reason: Agitation Stop: 03/30/17 23:07 Artificial Tears (Artificial Tears) 0 ml OU BID PRN PRN Reason: Dry eyes Last Admin: 03/24/17 21:18 Dose: 1 drop Atenolol (Tenormin) 12.5 mg PO DAILY [facility] Last Admin: 03/25/17 09:44 Dose: 12.5 mg Cyclobenzaprine HCl (Flexeril) 2.5 mg PO TID PRN PRN Reason: Other Cyclosporine (Restasis) 1 ea OU Q12 [facility] Last Admin: 03/25/17 13:41 Dose: Not Given Fluoxetine HCl (Prozac) 40 mg PO DAILY [facility] Last Admin: 03/25/17 09:41 Dose: 40 mg Folic Acid (Folic Acid) 1 mg PO DAILY [facility] Last Admin: 03/25/17 09:44 Dose: 1 mg Gabapentin (Neurontin) 100 mg PO TID [facility] PRN Reason: Protocol Last Admin: 03/25/17 14:01 Dose: 100 mg Heparin Sodium (Porcine) (Heparin) 5,000 units SC Q8 [facility] PRN Reason: Protocol Last Admin: 03/25/17 14:01 Dose: 5,000 units Hydroxychloroquine Sulfate (Plaquenil) 200 mg PO DAILY [facility] Last Admin: 03/25/17 09:44 Dose: 200 mg Levetiracetam (Keppra) 500 mg PO BID [facility] Last Admin: 03/25/17 09:41 Dose: 500 mg Levothyroxine Sodium (Synthroid) 50 mcg PO SuTuThSa@0630 [facility] Last Admin: 03/25/17 05:43 Dose: 50 mcg Levothyroxine Sodium (Synthroid) 75 mcg PO MoWeFr@0630 [facility] Last Admin: 03/24/17 05:40 Dose: 75 mcg Magnesium Hydroxide (Milk Of Magnesia) 30 ml PO DAILY PRN PRN Reason: Constipation Last Admin: 03/24/17 18:11 Dose: 30 ml Meclizine HCl (Antivert) 25 mg PO BID [facility] Last Admin: 03/25/17 09:40 Dose: 25 mg Methylphenidate HCl (Ritalin) 5 mg PO BID [facility] Last Admin: 03/25/17 09:42 Dose: 5 mg Multivitamins (Thera Tab) 1 tab PO DAILY [facility] Last Admin: 03/25/17 09:42 Dose: 1 tab Pantoprazole Sodium (Protonix Ec Tab) 40 mg PO ACB [facility] Last Admin: 03/25/17 08:49 Dose: 40 mg Trazodone HCl (Desyrel) 50 mg PO HS [facility] Last Admin: 03/24/17 21:18 Dose: 50 mg Results - Vital Signs Recent Vital Signs: Last Vital Signs Temp 97 F L 03/25/17 11:59 Pulse 90 03/25/17 11:59 Resp 18 03/25/17 11:59 BP 149/54 L 03/25/17 11:59 Pulse Ox 99 03/25/17 06:00 - Labs Result Diagrams: 03/25/17 07:20 03/25/17 07:22 Labs: Laboratory Results - last 24 hr 03/24/17 03/24/17 03/24/17 11:07 16:12 21:13 WBC RBC Hgb Hct MCV MCH MCHC RDW Plt Count MPV Sodium Potassium Chloride Carbon Dioxide Anion Gap BUN Creatinine Est GFR ( Amer) Est GFR (Non-Af Amer) POC Glucose (mg/dL) 88 107 84 Random Glucose Calcium Phosphorus Magnesium Total Bilirubin AST ALT Alkaline Phosphatase Total Protein Albumin Globulin Albumin/Globulin Ratio Urine Color Urine Appearance Urine pH Ur Specific [place] Urine Protein Urine Glucose (UA) Urine Ketones Urine Blood Urine Nitrate Urine Bilirubin Urine Urobilinogen Ur Leukocyte Esterase 03/25/17 03/25/17 03/25/17 06:00 07:20 07:22 WBC 4.9 RBC 4.14 Hgb 12.7 Hct 38.7 MCV 93.5 MCH 30.7 MCHC 32.8 RDW 14.8 H Plt Count 210 MPV 9.9 Sodium 140 Potassium 4.7 Chloride 105 Carbon Dioxide 25 Anion Gap 15 BUN 15 Creatinine 0.7 Est GFR ( Amer) > 60 Est GFR (Non-Af Amer) > 60 POC Glucose (mg/dL) Random Glucose 82 Calcium 8.8 Phosphorus 4.0 Magnesium 2.2 Total Bilirubin 0.5 AST 29 ALT 31 Alkaline Phosphatase 88 Total Protein 6.4 Albumin 3.8 Globulin 2.6 Albumin/Globulin Ratio 1.4 Urine Color Yellow Urine Appearance Clear Urine pH 7.5 Ur Specific [place] 1.010 Urine Protein Negative Urine Glucose (UA) Negative Urine Ketones Negative Urine Blood Negative Urine Nitrate Negative Urine Bilirubin Negative Urine Urobilinogen 0.2 Ur Leukocyte Esterase Negative 03/25/17 03/25/17 07:24 11:16 WBC RBC Hgb Hct MCV MCH MCHC RDW Plt Count MPV Sodium Potassium Chloride Carbon Dioxide Anion Gap BUN Creatinine Est GFR ( Amer) Est GFR (Non-Af Amer) POC Glucose (mg/dL) 66 100 Random Glucose Calcium Phosphorus Magnesium Total Bilirubin AST ALT Alkaline Phosphatase Total Protein Albumin Globulin Albumin/Globulin Ratio Urine Color Urine Appearance Urine pH Ur Specific [place] Urine Protein Urine Glucose (UA) Urine Ketones Urine Blood Urine Nitrate Urine Bilirubin Urine Urobilinogen Ur Leukocyte Esterase Attending/Attestation - Attestation I have personally seen and examined this patient.: Yes I have fully participated in the care of the patient.: Yes I have reviewed all pertinent clinical information: Yes Notes (Text): 03/25/17 14:35 PATIENT NEED A RIGHT SIDE AFO FOR FOOT.
[2017-03-25] MEDS: cycloSPORINE 0.05 % Opth Emulsion UD OU SCH ×2 (13:41→16:17)
[2017-03-25 16:37] VITALS: BP 132/85; RESP 16
[2017-03-25 18:01] VITALS: PULSE 58
--- NOTE | 2017-03-25 18:20 | CP.PCM.DIS ---
<PhilAricblankachristie - Last Filed: 03/25/17 22:05> Provider - Provider Date of Admission: 03/23/17 17:52 Attending physician: Zuleyma Ackerman MD Primary care physician: Aba Joseph MD Hospital Course - Lab Results Lab Results: Most Recent Lab Values WBC 4.9 10^3/ul (4.5-11.0) 03/25/17 07:20 RBC 4.14 10^6/uL (3.5-6.1) 03/25/17 07:20 Hgb 12.7 gm/dL (12.0-16.0) 03/25/17 07:20 Hct 38.7 % (36.0-48.0) 03/25/17 07:20 MCV 93.5 fL (80.0-105.0) 03/25/17 07:20 MCH 30.7 pg (25.0-35.0) 03/25/17 07:20 MCHC 32.8 g/dl (31.0-37.0) 03/25/17 07:20 RDW 14.8 % (11.5-14.5) H 03/25/17 07:20 Plt Count 210 10^3/uL (120.0-450.0) 03/25/17 07:20 MPV 9.9 fl (7.0-11.0) 03/25/17 07:20 Gran % 63.9 % (50.0-68.0) 03/23/17 15:00 Lymph % (Auto) 21.5 % (22.0-35.0) L 03/23/17 15:00 [place] % (Auto) 10.2 % (1.0-6.0) H 03/23/17 15:00 Eos % (Auto) 3.9 % (1.5-5.0) 03/23/17 15:00 Baso % (Auto) 0.5 % (0.0-3.0) 03/23/17 15:00 Gran # 4.06 (1.4-6.5) 03/23/17 15:00 Lymph # 1.4 (1.2-3.4) 03/23/17 15:00 Island # 0.7 (0.1-0.6) H 03/23/17 15:00 Eos # 0.3 (0.0-0.7) 03/23/17 15:00 Baso # 0.03 K/mm3 (0.0-2.0) 03/23/17 15:00 PT 10.6 Seconds (9.9-11.8) 03/23/17 15:00 INR 0.98 (0.93-1.08) 03/23/17 15:00 APTT 32.2 Seconds (23.7-30.8) H 03/23/17 15:00 Sodium 140 mmol/L (132-148) 03/25/17 07:22 Potassium 4.7 mmol/L (3.6-5.0) 03/25/17 07:22 Chloride 105 mmol/L (95-110) 03/25/17 07:22 Carbon Dioxide 25 mmol/L (21-33) 03/25/17 07:22 Anion Gap 15 (10-20) 03/25/17 07:22 BUN 15 mg/dL (7-21) 03/25/17 07:22 Creatinine 0.7 mg/dL (0.5-1.4) 03/25/17 07:22 Est GFR ( Amer) > 60 03/25/17 07:22 Est GFR (Non-Af Amer) > 60 03/25/17 07:22 POC Glucose (mg/dL) 141 mg/dL (65-110) H 03/25/17 15:59 Random Glucose 82 mg/dL (70-110) 03/25/17 07:22 Hemoglobin A1c 5.7 % (4.2-6.5) 03/23/17 15:00 Calcium 8.8 mg/dL (8.4-10.5) 03/25/17 07:22 Phosphorus 4.0 mg/dL (2.5-4.5) 03/25/17 07:22 Magnesium 2.2 mg/dL (1.7-2.2) 03/25/17 07:22 Total Bilirubin 0.5 mg/dL (0.2-1.3) 03/25/17 07:22 AST 29 U/L (15-39) 03/25/17 07:22 ALT 31 U/L (7-56) 03/25/17 07:22 Alkaline Phosphatase 88 U/L (38-133) 03/25/17 07:22 Total Creatine Kinase 107 U/L (35-230) 03/24/17 08:30 Troponin I < 0.01 ng/mL D 03/23/17 15:00 Total Protein 6.4 g/dL (5.8-8.3) 03/25/17 07:22 Albumin 3.8 g/dL (3.0-4.8) 03/25/17 07:22 Globulin 2.6 gm/dL 03/25/17 07:22 Albumin/Globulin Ratio 1.4 (1.1-1.8) 03/25/17 07:22 Triglycerides 158 mg/dL (35-160) 03/23/17 15:00 Cholesterol 188 mg/dL (130-200) 03/23/17 15:00 LDL Cholesterol Direct 108 mg/dL (0-129) 03/23/17 15:00 HDL Cholesterol 52 mg/dL (29-60) 03/23/17 15:00 Urine Color Yellow (YELLOW) 03/25/17 06:00 Urine Appearance Clear (CLEAR) 03/25/17 06:00 Urine pH 7.5 (4.7-8.0) 03/25/17 06:00 Ur Specific [place] 1.010 (1.005-1.035) 03/25/17 06:00 Urine Protein Negative mg/dL (<30 mg/dL) 03/25/17 06:00 Urine Glucose (UA) Negative mg/dL (NEGATIVE) 03/25/17 06:00 Urine Ketones Negative mg/dL (NEGATIVE) 03/25/17 06:00 Urine Blood Negative (NEGATIVE) 03/25/17 06:00 Urine Nitrate Negative (NEGATIVE) 03/25/17 06:00 Urine Bilirubin Negative (NEGATIVE) 03/25/17 06:00 Urine Urobilinogen 0.2 E.U./dL (<1 E.U./dL) 03/25/17 06:00 Ur Leukocyte Esterase Negative [place]toria/uL (NEGATIVE) 03/25/17 06:00 Blood Type O POSITIVE 03/23/17 15:00 Antibody Screen Negative 03/23/17 15:00 BBK History Checked Patient has bt 03/23/17 15:00 Discharge Plan - Discharge Medications Prescriptions: Levetiracetam [Keppra] 750 mg PO BID #60 tablet - Follow Up Plan Condition: SERIOUS Disposition: HOME/ ROUTINE Instructions: Hydrocephalus (DC) Additional Instructions: Please take all medications as prescribed. Please stop taking your 500mg twice-a-day Keppra; you have been prescribed a new dose (750mg twice-a-day), and the script has been electronically transmitted to your pharmacy. Please excelsior picker the new perscription right away. As per Neurology, avoid any further Ritalin. Please follow up with your PMD (Dr. Joseph) and your Neurologist (Dr. Theodore) within 1 week. Please follow up with your Neurosurgeon at [facility] on MondayMarch 27. RN note: Dr. Alcantar authorizes discharge to home with new prescription for Keppra. Get scripts filled as soon as possible and take according to directions. Call for follow up appointment with primary MD within 1 week. Enclosed are discharge instructions, please take time to review at your earliest convenience. If you experience any difficulty breathing, unusual bleeding, temperature over 100F, severe pain, change in mental status, or any worsening of your condition, contact your doctor or go to nearest ER immediately. Please check the room for all of your belongings before leaving hospital. Referrals: Keagan Theodore MD [Staff Provider] - Aba Joseph MD [Primary Care Provider] - Attending/Attestation - Attestation I have personally seen and examined this patient.: Yes I have fully participated in the care of the patient.: Yes I have reviewed all pertinent clinical information, including history, physical exam and plan: Yes Notes (Text): 03/25/17 22:05 Patient seen and examined at bedside. She feels better and denies any new complaints.labs, vitals and notes reviewed. Case d/w Neurology service as well and Keppra dose up titrated.Discharge plan discussed with the patient and as outlined by the resident above. <BRENNA POLLOCK - Last Filed: 03/26/17 05:43> Provider - Provider Date of Admission: 03/23/17 17:52 Attending physician: Zuleyma Ackerman MD Primary care physician: Aba Joseph MD Time Spent in preparation of Discharge (in minutes): 45 Hospital Course - Lab Results Lab Results: Most Recent Lab Values WBC 4.9 10^3/ul (4.5-11.0) 03/25/17 07:20 RBC 4.14 10^6/uL (3.5-6.1) 03/25/17 07:20 Hgb 12.7 gm/dL (12.0-16.0) 03/25/17 07:20 Hct 38.7 % (36.0-48.0) 03/25/17 07:20 MCV 93.5 fL (80.0-105.0) 03/25/17 07:20 MCH 30.7 pg (25.0-35.0) 03/25/17 07:20 MCHC 32.8 g/dl (31.0-37.0) 03/25/17 07:20 RDW 14.8 % (11.5-14.5) H 03/25/17 07:20 Plt Count 210 10^3/uL (120.0-450.0) 03/25/17 07:20 MPV 9.9 fl (7.0-11.0) 03/25/17 07:20 Gran % 63.9 % (50.0-68.0) 03/23/17 15:00 Lymph % (Auto) 21.5 % (22.0-35.0) L 03/23/17 15:00 [place] % (Auto) 10.2 % (1.0-6.0) H 03/23/17 15:00 Eos % (Auto) 3.9 % (1.5-5.0) 03/23/17 15:00 Baso % (Auto) 0.5 % (0.0-3.0) 03/23/17 15:00 Gran # 4.06 (1.4-6.5) 03/23/17 15:00 Lymph # 1.4 (1.2-3.4) 03/23/17 15:00 Island # 0.7 (0.1-0.6) H 03/23/17 15:00 Eos # 0.3 (0.0-0.7) 03/23/17 15:00 Baso # 0.03 K/mm3 (0.0-2.0) 03/23/17 15:00 PT 10.6 Seconds (9.9-11.8) 03/23/17 15:00 INR 0.98 (0.93-1.08) 03/23/17 15:00 APTT 32.2 Seconds (23.7-30.8) H 03/23/17 15:00 Sodium 140 mmol/L (132-148) 03/25/17 07:22 Potassium 4.7 mmol/L (3.6-5.0) 03/25/17 07:22 Chloride 105 mmol/L (95-110) 03/25/17 07:22 Carbon Dioxide 25 mmol/L (21-33) 03/25/17 07:22 Anion Gap 15 (10-20) 03/25/17 07:22 BUN 15 mg/dL (7-21) 03/25/17 07:22 Creatinine 0.7 mg/dL (0.5-1.4) 03/25/17 07:22 Est GFR ( Amer) > 60 03/25/17 07:22 Est GFR (Non-Af Amer) > 60 03/25/17 07:22 POC Glucose (mg/dL) 141 mg/dL (65-110) H 03/25/17 15:59 Random Glucose 82 mg/dL (70-110) 03/25/17 07:22 Hemoglobin A1c 5.7 % (4.2-6.5) 03/23/17 15:00 Calcium 8.8 mg/dL (8.4-10.5) 03/25/17 07:22 Phosphorus 4.0 mg/dL (2.5-4.5) 03/25/17 07:22 Magnesium 2.2 mg/dL (1.7-2.2) 03/25/17 07:22 Total Bilirubin 0.5 mg/dL (0.2-1.3) 03/25/17 07:22 AST 29 U/L (15-39) 03/25/17 07:22 ALT 31 U/L (7-56) 03/25/17 07:22 Alkaline Phosphatase 88 U/L (38-133) 03/25/17 07:22 Total Creatine Kinase 107 U/L (35-230) 03/24/17 08:30 Troponin I < 0.01 ng/mL D 03/23/17 15:00 Total Protein 6.4 g/dL (5.8-8.3) 03/25/17 07:22 Albumin 3.8 g/dL (3.0-4.8) 03/25/17 07:22 Globulin 2.6 gm/dL 03/25/17 07:22 Albumin/Globulin Ratio 1.4 (1.1-1.8) 03/25/17 07:22 Triglycerides 158 mg/dL (35-160) 03/23/17 15:00 Cholesterol 188 mg/dL (130-200) 03/23/17 15:00 LDL Cholesterol Direct 108 mg/dL (0-129) 03/23/17 15:00 HDL Cholesterol 52 mg/dL (29-60) 03/23/17 15:00 Urine Color Yellow (YELLOW) 03/25/17 06:00 Urine Appearance Clear (CLEAR) 03/25/17 06:00 Urine pH 7.5 (4.7-8.0) 03/25/17 06:00 Ur Specific [place] 1.010 (1.005-1.035) 03/25/17 06:00 Urine Protein Negative mg/dL (<30 mg/dL) 03/25/17 06:00 Urine Glucose (UA) Negative mg/dL (NEGATIVE) 03/25/17 06:00 Urine Ketones Negative mg/dL (NEGATIVE) 03/25/17 06:00 Urine Blood Negative (NEGATIVE) 03/25/17 06:00 Urine Nitrate Negative (NEGATIVE) 03/25/17 06:00 Urine Bilirubin Negative (NEGATIVE) 03/25/17 06:00 Urine Urobilinogen 0.2 E.U./dL (<1 E.U./dL) 03/25/17 06:00 Ur Leukocyte Esterase Negative [place]/uL (NEGATIVE) 03/25/17 06:00 Blood Type O POSITIVE 03/23/17 15:00 Antibody Screen Negative 03/23/17 15:00 BBK History Checked Patient has bt 03/23/17 15:00 - Hospital Course Hospital Course: Ms. Yan is a very pleasant, alert, 71 y/o female with a PMHx significant for NPH s/p ENVELOPE FOLD OPERATOR shunt, Rheumatoid arthritis, and gait disorder, who presented on 03/23 with a c/o the right side of her face and head feeling tight and spasming for the past two days. She stated that this occurred on and off for two days, but when she woke up today it was persistent, which is why she came to the ED. Ms. Yan denies previous such episodes, despite having a significant neurological history. In addition to her CC, Ms. Yan also stated that she was experiencing new-onset right foot muscle spasms in which her right foot was inverting and deviating medially. This began occurring while she was in the ED and was coinciding with her facial spasms. Of note, Ms. Yan also described new-onset b/l LE swelling, which she attributed to being less ambulatory. She denied associated shortness of breath. Patient denied fevers, chills, nausea, vomiting, diarrhea, chest pain, shortness of breath, loss of vision, loss of bowel or bladder, and urinary symptoms. Patient further denies history of seizure disorder. Neurology was consulted. In the ED, EKG showed Sinus bradycardia. CT Head showed ventriculomegaly and R ventricular shunt, the degree of ventriculomegaly was unchanged from prior CT; no intracranial mass or hemorrhage were noted and no evidence of acute infarct. On 03/24, the patient's presenting symptoms have resolved, pt now describes a "heaviness" in her head. pt experienced bradycardia - atenolol dose changed to 12.5mg (hold for HR<50bpm). CPK/Mg/Phos results normal. Repeat CT for ischemic changes. Neurology suggests it's unlikely to be a seizure, and that Keppra dose be increased to 750mg BID, avoid Ritalin, continue Gabapentin, avoid sedatives, to obtain R AFO for food and to f/u with Dr. Theodore (neurologist) as outpatient. - Date & Time of H&P Date of H&P: 03/23/17 Time of H&P: 15:25 Discharge Exam - Head Exam Head Exam: ATRAUMATIC - Eye Exam Eye Exam: EOMI, Normal appearance, PERRL - ENT Exam ENT Exam: Mucous Membranes Moist, Normal Exam - Respiratory Exam Respiratory Exam: Clear to PA & Lateral, NORMAL BREATHING PATTERN. absent: Rhonchi, Wheezes, Respiratory Distress, Stridor - Cardiovascular Exam Cardiovascular Exam: RRR. absent: Gallop, Rubs - GI/Abdominal Exam GI & Abdominal Exam: Soft, Unremarkable. absent: Distended, Tenderness - Neurological Exam Neurological exam: Alert, Altered, Oriented x3 - Psychiatric Exam Psychiatric exam: Normal Affect, Normal Mood - Skin Skin Exam: Normal Color, Warm
--- NOTE | 2017-03-26 09:22 | CT ---
PROCEDURE: CT HEAD WITHOUT CONTRAST. HISTORY: TIA COMPARISON: 03/23/2017 TECHNIQUE: Axial computed tomography images were obtained through the head/brain without intravenous contrast. Radiation dose: Total exam DLP = 822 mGy-cm. This CT exam was performed using one or more of the following dose reduction techniques: Automated exposure control, adjustment of the mA and/or kV according to patient size, and/or use of iterative reconstruction technique. FINDINGS: HEMORRHAGE: No intracranial hemorrhage. BRAIN: No mass effect or edema. No atrophy or chronic microvascular ischemic changes. VENTRICLES: There is no change to the degree of hydrocephalus. There is moderate to severe ventricular dilatation. A shunt catheter is in place. CALVARIUM: Previous craniotomies PARANASAL SINUSES: Unremarkable as visualized. No significant inflammatory changes. MASTOID AIR CELLS: Unremarkable as visualized. No inflammatory changes. OTHER FINDINGS: The report concurs with the preliminary [facility] report IMPRESSION: Severe chronic hydrocephalus with shunt catheter in place. Findings are unchanged
== END 2017-03-25 19:27 | disposition home or self-care (01) | DRG 74 ==
LOC: ED 14:29 → ERH 17:52 → 2RNO 20:39
PROVIDERS: ADMIT Internal Medicine; ATTEND Internal Medicine
DX: G51.3 Clonic hemifacial spasm (principal); G91.9 Hydrocephalus, unspecified; G93.89 Other specified disorders of brain; E87.1 Hypo-osmolality and hyponatremia; R00.1 Bradycardia, unspecified; M06.9 Rheumatoid arthritis, unspecified; E03.9 Hypothyroidism, unspecified; F43.9 Reaction to severe stress, unspecified; Z98.2 Presence of cerebrospinal fluid drainage device; I10 Essential (primary) hypertension; H54.8 Legal blindness, as defined in USA; H35.30 Unspecified macular degeneration; I25.10 Atherosclerotic heart disease of native coronary artery without angina pectoris; K21.9 Gastro-esophageal reflux disease without esophagitis; Z79.899 Other long term (current) drug therapy; Z87.440 Personal history of urinary (tract) infections; Z87.891 Personal history of nicotine dependence; Z96.653 Presence of artificial knee joint, bilateral; R26.81 Unsteadiness on feet; R42 Dizziness and giddiness; Z86.2 Personal history of diseases of the blood and blood-forming organs and certain disorders involving the immune mechanism; R32 Unspecified urinary incontinence; F41.9 Anxiety disorder, unspecified; F32.89 Other specified depressive episodes; Z88.1 Allergy status to other antibiotic agents; Z88.2 Allergy status to sulfonamides; R73.9 Hyperglycemia, unspecified; R35.0 Frequency of micturition; R25.2 Cramp and spasm; Z91.81 History of falling

== ENCOUNTER 2017-04-25 16:08 | Inpatient (IN) | payer MEDICARE ==
[2017-04-25 16:55] VITALS: BMI 32.8
--- NOTE | 2017-04-25 17:16 | ED PDOC ---
Arrival/HPI - General Chief Complaint: Weakness/Neurological Deficit Time Seen by Provider: 04/25/17 16:26 Historian: Patient - History of Present Illness Narrative History of Present Illness (Text): 04/25/17 17:07 A 71 year old female, whose past medical history includes hydrocephalus s/p FISHERIES MANAGER shunt, hypertension, hypothyroidism and Rheumatoid arthritis, presents to the emergency department complaining of multiple falls today. Patient reports she couldn't stand up and fell due to feeling weak. She reports generalized weakness over the past two days and states she has experienced these episodes before. Patient notes urinary frequency but denies any loss of consciousness, head trauma, fever, chills, chest pain, shortness of breath, nausea, vomiting, diarrhea, dysuria, back pain, neck pain, headache, dizziness, or any other complaints. Patient is complaint with her medication. PMD: Dr. Joseph Time/Duration: Other (Today) Context: Home Past Medical History - Provider Review Nursing Documentation Reviewed: Yes - Infectious Disease Hx of Infectious Diseases: None - Tetanus Immunization Tetanus Immunization: Unknown - Reproductive Menopause: Yes - Cardiac Hx Cardiac Disorders: Yes Hx Hypertension: Yes - Pulmonary Hx Respiratory Disorders: No - Neurological Hx Neurological Disorder: Yes Hx Dizziness: Yes Other/Comment: hydrocephalus blood clots in her brain revision to the shunt in her brain. 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 - HEENT Hx HEENT Disorder: Yes Hx Blind: Yes Hx Macular Degeneration: Yes Other/Comment: LEGALLY BLIND - Renal Hx Renal Disorder: No - Endocrine/Metabolic Hx Endocrine Disorders: Yes Hx Hypothyroidism: Yes - Hematological/Oncological Hx Blood Disorders: Yes Hx Anemia: Yes (PLT transfusion 4 yrs ago w b/l knee repl) Hx Cancer: No - Integumentary Hx Dermatological Disorder: No - Musculoskeletal/Rheumatological Hx Musculoskeletal Disorders: Yes Hx Falls: Yes Hx Rheumatoid Arthritis: Yes - Gastrointestinal Hx Gastrointestinal Disorders: Yes Hx Gastroesophageal Reflux: Yes - Genitourinary/Gynecological Hx Genitourinary Disorders: Yes (INCONTINENT) - Psychiatric Hx Psychophysiologic Disorder: Yes Hx Anxiety: Yes Hx Depression: Yes Hx Substance Use: No - Surgical History Hx Joint Replacement: Yes Hx Orthopedic Surgery: Yes Other/Comment: brain shunt - Anesthesia Hx Anesthesia: Yes Hx Anesthesia Reactions: No Hx Malignant Hyperthermia: No - Suicidal Assessment Feels Threatened In Home Enviroment: No Family/Social History - Physician Review Nursing Documentation Reviewed: Yes Family/Social History: No Known Family HX Smoking Status: Former Smoker Hx Alcohol Use: No Hx Substance Use: No Hx Substance Use Treatment: No Allergies/Home Meds Allergies/Adverse Reactions: Allergies Sulfa (Sulfonamide Antibiotics) Allergy (Verified 04/25/17 17:00) RASH sulfamethoxazole [From Bactrim] Allergy (Verified 04/25/17 16:59) RASH trimethoprim [From Bactrim] Allergy (Verified 04/25/17 16:59) RASH eye antibiotic Allergy (Uncoded 01/22/17 16:11) SWELLING BACITRACIN OINT AROUND EYES CAUSED FACIAL SWELLING Home Medications: Home Meds Medication Instructions Recorded Confirmed Levothyroxine [Synthroid] 0.05 mg PO QOTHERDAY 11/21/16 04/25/17 Levothyroxine [Synthroid] 0.075 mg PO MWF 11/21/16 04/25/17 Atenolol [Tenormin] 1 tab PO DAILY 02/01/17 04/25/17 Review of Systems - Physician Review All systems were reviewed & negative as marked: Yes - Review of Systems Constitutional: absent: Fevers, Night Sweats Respiratory: absent: SOB, Cough, Sputum, Wheezing Cardiovascular: absent: Chest Pain Gastrointestinal: absent: Abdominal Pain, Constipation, Diarrhea, Nausea, Vomiting Genitourinary Female: Frequency (Urinary Frequency). absent: Dysuria, Hematuria , Vaginal Bleeding, Vaginal Discharge Musculoskeletal: absent: Back Pain, Neck Pain Neurological: absent: Headache, Dizziness, Seizure Physical Exam Vital Signs Reviewed: Yes Vital Signs Temp Pulse Resp BP Pulse Ox 04/25/17 16:15 98.5 F 62 18 128/63 99 Temperature: Afebrile Blood Pressure: Normal Pulse: Regular Respiratory Rate: Normal Appearance: Positive for: Non-Toxic, Comfortable, Other (Pale appearing) Pain Distress: None Mental Status: Positive for: Alert and Oriented X 3 - Systems Exam Head: Present: Atraumatic, Normocephalic Pupils: Present: PERRL Extroacular Muscles: Present: EOMI Conjunctiva: Present: Normal Mouth: Present: Moist Mucous Membranes Neck: Present: Normal Range of Motion Respiratory/Chest: Present: Clear to Auscultation, Good Air Exchange. No: Respiratory Distress, Accessory Muscle Use Cardiovascular: Present: Regular Rate and Rhythm, Normal S1, S2. No: Murmurs Abdomen: Present: Normal Bowel Sounds. No: Tenderness, Distention, Peritoneal Signs Back: Present: Normal Inspection Upper Extremity: Present: Normal Inspection. No: Cyanosis, Edema Lower Extremity: Present: Normal Inspection. No: Edema Neurological: Present: GCS=15, CN II-XII Intact, Speech Normal, Motor Func Grossly Intact, Normal Sensory Function. No: Gait Normal (Pt reports "unstable gait") Skin: Present: Warm, Dry, Normal Color. No: Rashes Psychiatric: Present: Alert, Oriented x 3, Normal Insight, Normal Concentration Medical Decision Making ED Course and Treatment: 04/25/17 17:06 Impression: 71 year old female with multiple falls secondary to generalized weakness. Differential Diagnosis included but are not limited to: Obstructed hydrocephalus vs. Infection vs. Hypothyroidism Plan: -- CT head -- Chest X-ray -- EKG -- Labs -- Urinalysis -- Shuntogram -- Reassess and disposition Progress Notes: Report Date : 04/25/2017 18:41:40 PROCEDURE: CT HEAD WITHOUT CONTRAST. Dictator : Kirstin Sutton MD IMPRESSION: Ventriculomegaly and right-sided ventricular shunt. Bilateral craniotomies. 04/25/17 18:45 Chest xray read and interpreted by me, which is negative. 04/25/17 19:13 EKG shows sinus bradycardia at 58bpm with normal intervals and no ST changes Report Date: 04/25/17 19:53 Dictated and Authenticated by: Shireen Fontanez MD Procedure: Shuntogram EXAM: XR Skull, 1, 2 or 3 Views IMPRESSION: Old craniotomy defect; shunt catheter and tubing as described ---- EXAM: XR Chest, 1 View IMPRESSION: Shunt tubing in the right chest wall, no acute disease in the chest ---- EXAM: XR Abdomen, 1 View IMPRESSION: Constipation; shunt tubing as described 04/25/17 20:07 Labs reviewed, CMP, CBC and thyroid grossly normal. Troponin times 1. 04/25/17 20:26 Ua shows leukocytes but only 2-5wbc. Patient walks at baseline with walker. Attempted to ambulate patient with assistance x 2 and she is unable. Patient cannot ambulate and lives alone. Will need admission due to frequent falls and inability to ambulate for rehab placement. Spoke to Dr. Weber, hospitalist. - Lab Interpretations Lab Results: 04/25/17 18:20 04/25/17 18:20 Lab Results 04/25/17 19:42: Urine Color Yellow, Urine Appearance Clear, Urine pH 6.5, Ur Specific [place] 1.010, Urine Protein Negative, Urine Glucose (UA) Negative, Urine Ketones Negative, Urine Blood Negative, Urine Nitrate Negative, Urine Bilirubin Negative, Urine Urobilinogen 0.2, Ur Leukocyte Esterase Moderate H, Urine RBC 0 - 2, Urine WBC 2 - 5, Ur Epithelial Cells 0 - 2, Urine Bacteria Few 04/25/17 18:20: Sodium 138, Potassium 4.5, Chloride 104, Carbon Dioxide 24, Anion Gap 15, BUN 18, Creatinine 0.8, Est GFR ( Amer) > 60, Est GFR (Non- Af Amer) > 60, Random Glucose 95, Calcium 9.1, Total Bilirubin 0.5, AST 32, ALT 31, Alkaline Phosphatase 102, Total Creatine Kinase 80, Troponin I < 0.01, Total Protein 7.0, Albumin 4.0, Globulin 3.0, Albumin/Globulin Ratio 1.3 04/25/17 18:20: WBC 6.4 D, RBC 4.01, Hgb 12.5, Hct 37.1, MCV 92.5, MCH 31.2, MCHC 33.7, RDW 14.7 H, Plt Count 160, MPV 10.6, Gran % 64.7, Lymph % (Auto) 18.5 L, [place] % (Auto) 11.5 H, Eos % (Auto) 4.8, Baso % (Auto) 0.5, Gran # 4.16, Lymph # 1.2, [place] # 0.7 H, Eos # 0.3, Baso # 0.03 04/25/17 18:00: Free T4 0.87, TSH 3rd Generation 2.74 I have reviewed the lab results: Yes - RAD Interpretation Radiology Orders: 04/25/17 17:01 HEAD W/O CONTRAST [CT] Stat SHUNTOGRAM [RAD] Stat 04/25/17 17:03 CHEST ONE VIEW [RAD] Stat - EKG Interpretation Interpreted by ED Physician: Yes - Scribe Statement The provider has reviewed the documentation as recorded by the Keli Vargas training with Pau Garcia Provider Scribe Attestation: All medical record entries made by the Scribe were at my direction and personally dictated by me. I have reviewed the chart and agree that the record accurately reflects my personal performance of the history, physical exam, medical decision making, and the department course for this patient. I have also personally directed, reviewed, and agree with the discharge instructions and disposition. Disposition/Present on Arrival - Present on Arrival Any Indicators Present on Arrival: No History of DVT/PE: No History of Uncontrolled Diabetes: No Urinary Catheter: No History of Decub. Ulcer: No History Surgical Site Infection Following: None - Disposition Have Diagnosis and Disposition been Completed?: Yes Diagnosis: Fall Disposition: HOSPITALIZED Disposition Time: 20:41 Patient Plan: Admission Patient Problems: Current Active Problems Problem Status Onset Fall Acute Condition: FAIR
[2017-04-25 18:31] LABS: BASO # 0.03 K/mm3 (0.0-2.0); BASO % 0.5 % (0.0-3.0); EOS # 0.3 (0.0-0.7); EOS % 4.8 % (1.5-5.0); GRAN # 4.16 (1.4-6.5); GRAN % 64.7 % (50.0-68.0); HEMOGLOBIN 12.5 g/dL (12.0-16.0); LYMPH # 1.2 (1.2-3.4); LYMPH % 18.5 % (22.0-35.0); MEAN CELL VOLUME 92.5 fl (80.0-105.0); MEAN CORPUSCULAR HEMOGLOBIN 31.2 pg (25.0-35.0); MEAN CORPUSCULAR HGB CONC 33.7 g/dl (31.0-37.0); MEAN PLATELET VOLUME 10.6 fl (7.0-11.0); MONO # 0.7 (0.1-0.6); MONO % 11.5 % (1.0-6.0); PLATELET COUNT 160 10^3/uL (120.0-450.0); RBC 4.01 10^6/uL (3.5-6.1); RED CELL DISTRIBUTION WIDTH 14.7 % (11.5-14.5); WHITE BLOOD COUNT 6.4 10^3/ul (4.5-11.0)
[2017-04-25 18:41] LABS: ALB/GLOB RATIO 1.3 (1.1-1.8); ALT/SGPT 31 U/L (7-56); AST/SGOT 32 U/L (15-39); BLOOD UREA NITROGEN 18 mg/dL (7-21); CALCIUM 9.1 mg/dL (8.4-10.5); GFR AFRICAN-AMERICAN > 60; GFR NON-AFRICAN AMERICAN > 60
--- NOTE | 2017-04-25 18:43 | CT ---
PROCEDURE: CT HEAD WITHOUT CONTRAST. HISTORY: hx of hydrocephalus COMPARISON: Noncontrast head CTs performed 03/23/17 and 03/25/17 TECHNIQUE: Axial computed tomography images were obtained through the head/brain without intravenous contrast. Radiation dose: Total exam DLP = 756.96 mGy-cm. This CT exam was performed using one or more of the following dose reduction techniques: Automated exposure control, adjustment of the mA and/or kV according to patient size, and/or use of iterative reconstruction technique. FINDINGS: HEMORRHAGE: No intracranial hemorrhage. BRAIN: No mass effect or edema. No atrophy or chronic microvascular ischemic changes.Please note that MRI with diffusion imaging is more sensitive in the detection of acute ischemic event. VENTRICLES: Ventriculomegaly appears stable as compared to recent study. MACHINE SET UP OPERATOR shunt catheter via right occipital parietal approach terminating at the level of the interventricular septum. CALVARIUM: Bilateral frontotemporal craniotomies. PARANASAL SINUSES: Unremarkable as visualized. No significant inflammatory changes. MASTOID AIR CELLS: Unremarkable as visualized. No inflammatory changes. OTHER FINDINGS: None. IMPRESSION: Ventriculomegaly and right-sided ventricular shunt. Bilateral craniotomies.
[2017-04-25 18:52] LABS: TROPONIN I < 0.01 ng/mL
[2017-04-25 18:57] LABS: FREE T4 0.87 ng/dL (0.78-2.19)
--- NOTE | 2017-04-25 19:53 | RAD ---
EXAM: XR Skull, 1, 2 or 3 Views CLINICAL HISTORY: 71 years old, female; Injury or trauma; Fall; Initial encounter; Blunt; Generalized; Blunt trauma (contusions or hematomas); Consciousness not specified; Prior surgery; Surgery date: 6+ months; Surgery type: Rt sided shunt; Additional info: Fall with [employer] shunt TECHNIQUE: Frontal and/or lateral views of the skull. COMPARISON: CT head 03/25/17 FINDINGS: Bones/joints: There are multiple craniotomy defects. There are angus holes. A ventricular catheter is in place entering from a right posterior parietal approach. Catheter extends anteriorly superiorly and medially toward the midline. Extracranial radiolucent portion of the shunt apparatus it difficult to evaluate. There is a short length of radiopaque catheter in the right scalp and upper neck. Type of catheter changes in the right neck. Bony mineralization is normal. Sinuses: Sinuses are unremarkable. Soft tissues: see above Other findings: Mastoids are unremarkable. IMPRESSION: Old craniotomy defect; shunt catheter and tubing as described EXAM: XR Chest, 1 View CLINICAL HISTORY: 71 years old, female; Injury or trauma; Fall; Initial encounter; Blunt; Generalized; Blunt trauma (contusions or hematomas); Consciousness not specified; Prior surgery; Surgery date: 6+ months; Surgery type: Rt sided shunt; Additional info: Fall with [employer] shunt TECHNIQUE: Frontal view of the chest. COMPARISON: There are no prior studies for comparison. FINDINGS: Tubes and catheters: Faintly radiopaque shunt tubing courses over the right chest. Monitor leads overlie the chest and degrade image quality. Heart, mediastinum and jose: Heart size is at the upper limits of normal. Aorta is mildly uncoiled. Hilar contours are unremarkable. Vascularity: Pulmonary vascularity is normal. Lungs: There is no focal consolidation. Pleural spaces: There are no effusions. Bony structures: Bony structures are osteopenic. IMPRESSION: Shunt tubing in the right chest wall, no acute disease in the chest EXAM: XR Abdomen, 1 View CLINICAL HISTORY: 71 years old, female; Injury or trauma; Fall; Initial encounter; Blunt; Generalized; Blunt trauma (contusions or hematomas); Consciousness not specified; Prior surgery; Surgery date: 6+ months; Surgery type: Rt sided shunt; Additional info: Fall with [employer] shunt TECHNIQUE: Frontal supine view of the abdomen/pelvis. EXAM DATE/TIME: 04/25/2017 5:01 PM COMPARISON: There are no prior studies for comparison. FINDINGS: Gastrointestinal tract: There is a nonobstructed bowel gas pattern. There is moderate stool in the colon. There is a mildly distended small bowel loop in the left abdomen. Bones/joints: Bony structures are osteopenic with degenerative change. Soft tissues: There are no abnormal soft tissue masses or pathologic calcifications. Tubes, lines and devices: Shunt tubing is only minimally radiopaque. Catheter is seen projecting over the right abdomen. Catheter loops in the right abdomen. Tip is in the right upper quadrant. IMPRESSION: Constipation; shunt tubing as described
[2017-04-25 20:04] LABS: PH,URINE 6.5 (4.7-8.0); URINE BILIRUBIN NEGATIVE (NEGATIVE); URINE BLOOD NEGATIVE (NEGATIVE); URINE GLUCOSE (UA) NEGATIVE (NEGATIVE); URINE LEUKOCYTE ESTERASE MODERATE Leu/uL (NEGATIVE); URINE NITRATE NEGATIVE (NEGATIVE); URINE PROTEIN NEGATIVE mg/dL (<30 mg/dL); URINE UROBILINOGEN 0.2 E.U./dL (<1 E.U./dL)
[2017-04-25 20:06] LABS: URINE APPEARANCE CLEAR (CLEAR); URINE COLOR YELLOW (YELLOW)
[2017-04-25 20:17] LABS: URINE BACTERIA FEW (NEG); URINE EPITHELIAL CELLS 0 - 2 /hpf (0-5); URINE RBC 0 - 2 /hpf (0-2)
--- NOTE | 2017-04-26 03:11 | CP.PCM.HP ---
<LOROSSI - Last Filed: 04/26/17 03:13> History of Present Illness - History of Present Illness History of Present Illness: CC: Bilateral LE Weakness/Mechanical Fall HPI: Mrs. Yan is a 71 year old female with a past medical history significant for gait imbalance and chronic vertigo who presented for bilateral LE weakness that led to a mechanical fall. On the morning of 04/25/17 patient reports that she fell backwards after she tried to stand up from sitting on her couch after she experienced sudden weakness in both of her legs. She describes the feeling as "her legs giving out". She denies any trauma to her head or cervical spine and also denies any vertigo or syncope. Patient states that she regained her strength in both legs shortly afterwards but is afraid to walk now because this has happened twice in the past week. At baseline she ambulates with a walker due to gait imbalance but states that gait imbalance is not why she fell this day. Currently, patient reports being asymptomatic. Patient notes urinary frequency but denies any loss of consciousness, head trauma, fever, chills, chest pain, shortness of breath, nausea, vomiting, diarrhea, dysuria, back pain, neck pain, headache, dizziness, or any other complaints. PMH: NPH s/p shunt, RA, CAD, HTN, Hypothyroid, Depression, Anxiety, Gait Disorder, Chronic Vertigo, Urinary Frequency PSH: B/l TKR, [employer] shunt placement and plug; bilateral knee arthroplasty Family: Non-contributory Social: Former smoker (quit 50 years ago); Denies alcohol and illicit drug use Allergies: Sulfa drugs Home Meds: As per MAR Present on Admission - Present on Admission Any Indicators Present on Admission: No Review of Systems - Review of Systems Review of Systems: Please refer to HPI Past Patient History - Infectious Disease Hx of Infectious Diseases: None - Tetanus Immunizations Tetanus Immunization: Unknown - Past Social History Smoking Status: Former Smoker - CARDIAC Hx Cardiac Disorders: Yes Hx Hypertension: Yes - PULMONARY Hx Respiratory Disorders: No - NEUROLOGICAL Hx Neurological Disorder: Yes Hx Dizziness: Yes Other/Comment: hydrocephalus blood clots in her brain revision to the shunt in her brain. 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 - HEENT Hx HEENT Problems: Yes Hx Blind: Yes Hx Macular Degeneration: Yes Other/Comment: LEGALLY BLIND - RENAL Hx Chronic Kidney Disease: No - ENDOCRINE/METABOLIC Hx Endocrine Disorders: Yes Hx Hypothyroidism: Yes - HEMATOLOGICAL/ONCOLOGICAL Hx Blood Disorders: Yes Hx Anemia: Yes (PLT transfusion 4 yrs ago w b/l knee repl) Hx Cancer: No - INTEGUMENTARY Hx Dermatological Problems: No - MUSCULOSKELETAL/RHEUMATOLOGICAL Hx Musculoskeletal Disorders: Yes Hx Falls: Yes Hx Rheumatoid Arthritis: Yes - GASTROINTESTINAL Hx Gastrointestinal Disorders: Yes Hx Gastroesophageal Reflux: Yes - GENITOURINARY/GYNECOLOGICAL Hx Genitourinary Disorders: Yes (INCONTINENT) - PSYCHIATRIC Hx Psychophysiologic Disorder: Yes Hx Anxiety: Yes Hx Depression: Yes Hx Substance Use: No - SURGICAL HISTORY Hx Joint Replacement: Yes Hx Orthopedic Surgery: Yes Other/Comment: brain shunt - ANESTHESIA Hx Anesthesia: Yes Hx Anesthesia Reactions: No Hx Malignant Hyperthermia: No Meds Allergies/Adverse Reactions: Allergies Allergy/AdvReac Type Severity Reaction Status Date / Time Sulfa (Sulfonamide Allergy RASH Verified 04/25/17 17:00 Antibiotics) sulfamethoxazole Allergy RASH Verified 04/25/17 16:59 [From Bactrim] trimethoprim [From Bactrim] Allergy RASH Verified 04/25/17 16:59 eye antibiotic Allergy SWELLING Uncoded 01/22/17 16:11 Physical Exam - Constitutional Appears: No Acute Distress - Head Exam Head Exam: NORMAL INSPECTION, NORMOCEPHALIC - Eye Exam Eye Exam: EOMI, Normal appearance, PERRL - ENT Exam ENT Exam: Mucous Membranes Moist, Normal Exam - Neck Exam Neck exam: Positive for: Full Rom, Normal Inspection. Negative for: Lymphadenopathy, Tenderness - Respiratory Exam Respiratory Exam: Clear to Auscultation Bilateral, NORMAL BREATHING PATTERN. absent: Chest Wall Tenderness, Rales, Rhonchi, Wheezes, Respiratory Distress, Stridor - Cardiovascular Exam Cardiovascular Exam: REGULAR RHYTHM, RRR, +S1, +S2. absent: Tachycardia, Systolic Murmur - GI/Abdominal Exam GI & Abdominal Exam: Normal Bowel Sounds, Soft. absent: Distended, Firm, Guarding, Tenderness - Exam Exam: absent: Bladder Distension - Extremities Exam Extremities exam: Positive for: normal capillary refill, normal inspection, pedal pulses present. Negative for: calf tenderness, pedal edema - Back Exam Back exam: absent: CVA tenderness (L), CVA tenderness (R), paraspinal tenderness , vertebral tenderness - Neurological Exam Neurological exam: Alert, CN II-XII Intact, Oriented x3 - Expanded Neurological Exam Expanded Neuro motor strength exam: Left Upper Extremity: 5, Right Upper Extremity: 5, Left Lower Extremity: 5, Right Lower Extremity: 5 - Psychiatric Exam Psychiatric exam: Normal Affect, Normal Mood - Skin Skin Exam: Dry, Intact, Normal Color, Warm Results - Vital Signs Recent Vital Signs: Last Vital Signs Temp 98.5 F 04/25/17 16:15 Pulse 62 04/25/17 16:15 Resp 18 04/25/17 16:15 BP 128/63 04/25/17 16:15 Pulse Ox 99 04/25/17 16:15 - Labs Result Diagrams: 04/25/17 18:20 04/25/17 18:20 Assessment & Plan - Assessment and Plan (Free Text) Assessment: 71 year old female with a past medical history significant for gait imbalance and chronic vertigo who presented for bilateral LE weakness that led to a mechanical fall Plan: 1. Bilateral Lower Extremity Proximal Muscle Weakness -r/o movement disorder, parkinsons -No neurological deficits or weakness on exam -high fall risk precautions -Neurology consulted, will follow recommendations -PT/OT evaluation and treatment -SW/CM consulted as patient expressed interest in being placed in detention facility 2. Resting Tremor -r/o movement disorder, parkinsons -cont atenolol and keppra 3. History of Hypothyroid -cont synthroid 4. GI/DVT Prophylaxis -Protonix/SCD's Patient seen and case discussed with attending, Dr. Weber. - Date & Time Date: 04/26/17 Time: 01:20 <Torsten Weber - Last Filed: 04/26/17 07:15> Results - Vital Signs Recent Vital Signs: Last Vital Signs Temp 98.0 F 04/26/17 03:20 Pulse 57 L 04/26/17 03:20 Resp 20 04/26/17 03:20 BP 132/46 L 04/26/17 03:20 Pulse Ox 99 04/25/17 16:15 - Labs Result Diagrams: 04/25/17 18:20 04/25/17 18:20 Attending/Attestation - Attestation I have personally seen and examined this patient.: Yes I have fully participated in the care of the patient.: Yes I have reviewed all pertinent clinical information: Yes Notes (Text): Assessment * Fall with pt complaining of stiffness, weakness on clinical exam some resting tremor noticed, dd of parkinson, s/e of keppra, vs proximal muscle weakness. * h/o v/p shunt Plan see details see above.
[2017-04-26] MEDS ORDERED: Pneumococcal 23-Valent Vaccine IM ONE (03:44)
--- NOTE | 2017-04-26 09:05 | RAD ---
PROCEDURE: CHEST RADIOGRAPH, 1 VIEW HISTORY: fatigue COMPARISON: 03/23/2017 FINDINGS: LUNGS: Clear. PLEURA: No pneumothorax or pleural fluid seen. CARDIOVASCULAR: Normal. OSSEOUS STRUCTURES: No significant abnormalities. VISUALIZED UPPER ABDOMEN: Normal. OTHER FINDINGS: None. IMPRESSION: No active disease.
[2017-04-26] MEDS ORDERED: Levothyroxine 75 MCG TAB PO SCH (10:00)
--- NOTE | 2017-04-26 20:57 | CP.PCM.CON ---
<Regino Grant - Last Filed: 04/26/17 20:51> History of Present Illness - History of Present Illness History of Present Illness: Consult Note for Dr. aKpadia 71 y/o F with PMH of NPH s/p shunt, RA, CAD, HTN, Hypothyroid, Depression, Anxiety, Gait Disorder, Chronic Vertigo, Urinary Frequency presents with b/l proximal leg weakness. Pt states she was at home and tried to get up from her couch and had trouble. When she eventually got up, she felt her legs give out and fell down. Pt denies any trauma to her head or loss of consciousness. Pt states she has had this problem previously in the past. Pt is currently nervous to walk as she feels she will fall down. Pt uses a walker to ambulate. Currently , pt is able to get out her chair, with a minimal degree of difficulty. Pt states she is not in any pain, but feels generalized fatigue. Denies CP, SOB, N/ V/D, fever, chills, syncope, dizziness, headaches. PMH: NPH s/p shunt, RA, CAD, HTN, Hypothyroid, Depression, Anxiety, Gait Disorder, Chronic Vertigo, Urinary Frequency PSH: B/l TKR, [employer] shunt placement and plug Family: Noncontributory Social: Former smoker. 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 - HEENT Hx HEENT Problems: Yes Hx Blind: Yes Hx Macular Degeneration: Yes Other/Comment: LEGALLY BLIND - RENAL Hx Chronic Kidney Disease: No - ENDOCRINE/METABOLIC Hx Hypothyroidism: Yes - HEMATOLOGICAL/ONCOLOGICAL Hx Blood Disorders: Yes Hx Anemia: Yes (PLT transfusion 4 yrs ago w b/l knee repl) Hx Cancer: No - INTEGUMENTARY Hx Dermatological Problems: No - MUSCULOSKELETAL/RHEUMATOLOGICAL Hx Rheumatoid Arthritis: Yes - GASTROINTESTINAL Hx Gastrointestinal Disorders: Yes Hx Gastroesophageal Reflux: Yes - GENITOURINARY/GYNECOLOGICAL Hx Genitourinary Disorders: Yes (INCONTINENT) - PSYCHIATRIC Hx Psychophysiologic Disorder: Yes Hx Anxiety: Yes Hx Depression: Yes - SURGICAL HISTORY Hx Joint Replacement: Yes Hx Orthopedic Surgery: Yes Other/Comment: brain shunt - ANESTHESIA Hx Anesthesia: Yes Hx Anesthesia Reactions: No Hx Malignant Hyperthermia: No Meds Allergies/Adverse Reactions: Allergies Allergy/AdvReac Type Severity Reaction Status Date / Time Sulfa (Sulfonamide Allergy RASH Verified 04/25/17 17:00 Antibiotics) sulfamethoxazole Allergy RASH Verified 04/25/17 16:59 [From Bactrim] trimethoprim [From Bactrim] Allergy RASH Verified 04/25/17 16:59 eye antibiotic Allergy SWELLING Uncoded 01/22/17 16:11 - Medications Medications: Current Medications Atenolol (Tenormin) 25 mg PO DAILY [facility] Last Admin: 04/26/17 10:34 Dose: 25 mg Levetiracetam (Keppra) 750 mg PO BID [facility] Last Admin: 04/26/17 18:16 Dose: 750 mg Levothyroxine Sodium (Synthroid) 50 mcg PO QOTHERDAY [facility] Levothyroxine Sodium (Synthroid) 75 mcg PO MWF [facility] Last Admin: 04/26/17 10:34 Dose: 75 mcg Pantoprazole Sodium (Protonix Inj) 40 mg IVP DAILY [facility] Last Admin: 04/26/17 10:34 Dose: 40 mg Physical Exam - Constitutional Appears: Non-toxic, No Acute Distress - Head Exam Head Exam: ATRAUMATIC, NORMAL INSPECTION, NORMOCEPHALIC Additional comments: Shunt easily compressible - Eye Exam Eye Exam: EOMI - ENT Exam ENT Exam: Mucous Membranes Moist - Respiratory Exam Respiratory Exam: Clear to Auscultation Bilateral, NORMAL BREATHING PATTERN. absent: Rales, Rhonchi, Wheezes - Cardiovascular Exam Cardiovascular Exam: RRR, +S1, +S2 - GI/Abdominal Exam GI & Abdominal Exam: Normal Bowel Sounds, Soft. absent: Tenderness - Extremities Exam Extremities exam: Positive for: normal inspection. Negative for: calf tenderness, pedal edema - Neurological Exam Neurological exam: Alert, CN II-XII Intact, Oriented x3 Additional comments: Upper extremity muscle strength b/l 5/5 Lower extremity muscle strength b/l 4/5 - Psychiatric Exam Psychiatric exam: Normal Affect, Normal Mood - Skin Skin Exam: Intact, Normal Color, Warm Results - Vital Signs Recent Vital Signs: Last Vital Signs Temp 98 F 04/26/17 08:11 Pulse 60 04/26/17 10:34 Resp 20 04/26/17 08:11 BP 120/60 04/26/17 10:34 Pulse Ox 95 04/26/17 08:11 - Labs Result Diagrams: 04/25/17 18:20 04/25/17 18:20 Assessment & Plan - Assessment and Plan (Free Text) Plan: 71 y/o F with PMH of NPH s/p shunt, RA, CAD, HTN, Hypothyroid, Depression, Anxiety, Gait Disorder, Chronic Vertigo, Urinary Frequency presents with b/l proximal leg weakness. Shuntogram showed shunt to be functioning appropriately. Head CT showed no signs of acute pathology. Pt will undergo thoracic and lumbar spine CT as she is unable to tolerate MRI due to previous knee surgeries. Pt's symptoms may also be due to peripheral neuropathy. Pt is neurologically stable at this time. Plan: Thoracic and Lumbar CT scan Physical therapy May benefit from subacute rehab Avoid sedative medications Rudy, PGY-2 <Lorenzo Kapadia - Last Filed: 04/26/17 22:42> Meds - Medications Medications: Current Medications Acetaminophen (Tylenol 325mg Tab) 650 mg PO Q6H PRN PRN Reason: Headache Last Admin: 04/26/17 21:44 Dose: 650 mg Atenolol (Tenormin) 25 mg PO DAILY [facility] Last Admin: 04/26/17 10:34 Dose: 25 mg Levetiracetam (Keppra) 750 mg PO BID [facility] Last Admin: 04/26/17 18:16 Dose: 750 mg Levothyroxine Sodium (Synthroid) 50 mcg PO QOTHERDAY [facility] Levothyroxine Sodium (Synthroid) 75 mcg PO MWF [facility] Last Admin: 04/26/17 10:34 Dose: 75 mcg Pantoprazole Sodium (Protonix Inj) 40 mg IVP DAILY [facility] Last Admin: 04/26/17 10:34 Dose: 40 mg Results - Vital Signs Recent Vital Signs: Last Vital Signs Temp 98.3 F 04/26/17 20:59 Pulse 53 L 04/26/17 20:59 Resp 20 04/26/17 20:59 BP 160/66 H 04/26/17 20:59 Pulse Ox 93 L 04/26/17 20:59 - Labs Result Diagrams: 04/25/17 18:20 04/25/17 18:20 Attending/Attestation - Attestation I have personally seen and examined this patient.: Yes I have fully participated in the care of the patient.: Yes I have reviewed all pertinent clinical information: Yes
--- NOTE | 2017-04-27 01:09 | CARD ---
APPROVED REPORT EKG Measurement Heart [id number] <Conclusion> Sinus bradycardia Otherwise normal ECG
[2017-04-27] MEDS ORDERED: Pantoprazole 40 mg EC Tab PO SCH (06:00)
[2017-04-27 09:16] LABS: HEMOGLOBIN 13.3 g/dL (12.0-16.0); MEAN CELL VOLUME 92.9 fl (80.0-105.0); MEAN CORPUSCULAR HEMOGLOBIN 31.4 pg (25.0-35.0); MEAN CORPUSCULAR HGB CONC 33.8 g/dl (31.0-37.0); MEAN PLATELET VOLUME 9.7 fl (7.0-11.0); RBC 4.23 10^6/uL (3.5-6.1); RED CELL DISTRIBUTION WIDTH 14.6 % (11.5-14.5); WHITE BLOOD COUNT 5.3 10^3/ul (4.5-11.0)
[2017-04-27 09:27] LABS: BLOOD UREA NITROGEN 13 mg/dL (7-21); CALCIUM 9.3 mg/dL (8.4-10.5); GFR AFRICAN-AMERICAN > 60; GFR NON-AFRICAN AMERICAN > 60; MAGNESIUM 1.8 mg/dL (1.7-2.2)
[2017-04-27] MEDS ORDERED: Levothyroxine 50 MCG TAB PO SCH (10:00)
--- NOTE | 2017-04-27 10:12 | CT ---
PROCEDURE: CT Thoracic Spine without contrast HISTORY: back pain COMPARISON: None. TECHNIQUE: Axial computed tomography images were obtained of the thoracic spine without intravenous contrast. Coronal and sagittal reformatted images were created and reviewed. Radiation dose: Total exam DLP = 1002 mGy-cm. This CT exam was performed using one or more of the following dose reduction techniques: Automated exposure control, adjustment of the mA and/or kV according to patient size, and/or use of iterative reconstruction technique. FINDINGS: VERTEBRAE: Unremarkable. No fracture. Normal alignment. DISCS/SPINAL CANAL/NEURAL FORAMINA: Within the limits of the CT technique, no disc herniation seen. No central canal or neural foraminal stenosis.. Mild disc degeneration in the lower thoracic spine with disc space narrowing PARASPINAL SOFT TISSUES: Unremarkable. OTHER FINDINGS: Minimal ground-glass densities in both lungs The report concurs with the preliminary [facility] report. 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 No evidence of compression fracture or spinal stenosis
[2017-04-27] MEDS ORDERED: cycloSPORINE 0.05 % Opth Emulsion UD OD SCH (11:30)
--- NOTE | 2017-04-27 14:19 | CP.PCM.PN ---
<Carol Larsen - Last Filed: 04/27/17 14:32> Subjective - Date & Time of Evaluation Date of Evaluation: 04/27/17 Time of Evaluation: 07:00 - Subjective Subjective: Patient seen and examined at bedside. Per nursing patient was anxious last night and was requesting Xanax. Patient is currently comfortable, laying in bed. No complaints at this time. Denies headaches, dizziness, cp, sob, abdominal pain, urinary symptoms, changes in bowel habits. Patient is awaiting rehab placement Objective - Vital Signs/Intake and Output Vital Signs (last 24 hours): Temp Pulse Resp BP Pulse Ox 98.6 F 80 20 135/74 94 L 04/27/17 08:00 04/27/17 08:00 04/27/17 08:00 04/27/17 08:00 04/27/17 08:00 Intake and Output: 04/27/17 04/27/17 06:59 18:59 Intake Total 660 780 Output Total 350 Balance 310 780 - Medications Medications: Current Medications Acetaminophen (Tylenol 325mg Tab) 650 mg PO Q6H PRN PRN Reason: Headache Last Admin: 04/27/17 03:40 Dose: 650 mg Alprazolam (Xanax) 0.5 mg PO HS GISSELL PRN Reason: Protocol Atenolol (Tenormin) 25 mg PO DAILY [facility] Last Admin: 04/27/17 10:55 Dose: 25 mg Cyclosporine (Restasis) 1 ea OD Q12 G[facility] Last Admin: 04/27/17 11:42 Dose: 1 ea Gabapentin (Neurontin) 100 mg PO QID G[facility] PRN Reason: Protocol Levetiracetam (Keppra) 750 mg PO BID [facility] Last Admin: 04/27/17 10:55 Dose: 750 mg Levothyroxine Sodium (Synthroid) 50 mcg PO QOTHERDAY [facility] Last Admin: 04/27/17 10:55 Dose: 50 mcg Levothyroxine Sodium (Synthroid) 75 mcg PO MWF [facility] Last Admin: 04/26/17 10:34 Dose: 75 mcg Pantoprazole Sodium (Protonix Ec Tab) 40 mg PO 0600 [facility] Last Admin: 04/27/17 06:43 Dose: 40 mg - Labs Labs: 04/27/17 09:00 04/27/17 09:00 - Constitutional Appears: Well, No Acute Distress - Head Exam Head Exam: ATRAUMATIC, NORMAL INSPECTION Additional comments: +Shunt patent and easily compressible - Eye Exam Eye Exam: EOMI, Normal appearance Pupil Exam: NORMAL ACCOMODATION - ENT Exam ENT Exam: Mucous Membranes Moist - Neck Exam Neck Exam: Full ROM - Respiratory Exam Respiratory Exam: Clear to Ausculation Bilateral, NORMAL BREATHING PATTERN. absent: Rales, Rhonchi, Wheezes - Cardiovascular Exam Cardiovascular Exam: REGULAR RHYTHM, +S1, +S2 - GI/Abdominal Exam GI & Abdominal Exam: Soft, Normal Bowel Sounds. absent: Guarding, Rigid, Tenderness, Rebound - Extremities Exam Extremities Exam: Normal Inspection. absent: Calf Tenderness, Pedal Edema, Tenderness Additional comments: +tremor - Neurological Exam Neurological Exam: Alert, Awake, Oriented x3 - Psychiatric Exam Psychiatric exam: Normal Affect, Normal Mood - Skin Skin Exam: Normal Color, Warm Assessment and Plan - Assessment and Plan (Free Text) Assessment: 71 year old female with a past medical history significant for gait imbalance and chronic vertigo who presented for bilateral LE weakness that led to a mechanical fall Plan: 1. Gait imbalance, s/p fall -No neurological deficits or focal deficits on exam -Patient ambulates with a rolling walker -High fall risk precautions -CT thoracic/lumbar spine: mild disc degeneration in lower thoracic spine -Neurology consulted, will follow recommendations -PT recommending discharge to TCU/[facility] -SW/CM on the case, patient is currently awaiting placement 2. NPH with shunt placement -Shunt is patent and easily compressible 3. Resting Tremor -Cont Atenolol and Keppra 4. History of Hypothyroid -Cont Synthroid 5. Hx of Anxiety/Depression -Xanax 0.5 mg QHS 6. GI/DVT Prophylaxis -Protonix/SCD's <Kong QUEZADA,Rafaela - Last Filed: 04/27/17 16:09> Objective - Vital Signs/Intake and Output Vital Signs (last 24 hours): Temp Pulse Resp BP Pulse Ox 98.6 F 80 20 135/74 94 L 04/27/17 08:00 04/27/17 08:00 04/27/17 08:00 04/27/17 08:00 04/27/17 08:00 Intake and Output: 04/27/17 04/27/17 06:59 18:59 Intake Total 660 780 Output Total 350 Balance 310 780 - Medications Medications: Current Medications Acetaminophen (Tylenol 325mg Tab) 650 mg PO Q6H PRN PRN Reason: Headache Last Admin: 04/27/17 03:40 Dose: 650 mg Alprazolam (Xanax) 0.5 mg PO HS [facility] PRN Reason: Protocol Atenolol (Tenormin) 25 mg PO DAILY [facility] Last Admin: 04/27/17 10:55 Dose: 25 mg Cyclosporine (Restasis) 1 ea OD Q12 [facility] Last Admin: 04/27/17 11:42 Dose: 1 ea Gabapentin (Neurontin) 100 mg PO QID [facility] PRN Reason: Protocol Levetiracetam (Keppra) 750 mg PO BID [facility] Last Admin: 04/27/17 10:55 Dose: 750 mg Levothyroxine Sodium (Synthroid) 50 mcg PO QOTHERDAY [facility] Last Admin: 04/27/17 10:55 Dose: 50 mcg Levothyroxine Sodium (Synthroid) 75 mcg PO MWF [facility] Last Admin: 04/26/17 10:34 Dose: 75 mcg Pantoprazole Sodium (Protonix Ec Tab) 40 mg PO 0600 [facility] Last Admin: 04/27/17 06:43 Dose: 40 mg - Labs Labs: 04/27/17 09:00 04/27/17 09:00 Attending/Attestation - Attestation I have personally seen and examined this patient.: Yes I have fully participated in the care of the patient.: Yes I have reviewed all pertinent clinical information, including history, physical exam and plan: Yes Notes (Text): 04/27/17 16:02 Patient was seen and examined with remote medical coder. Agreed with resident assessment and plan. 71 y/o F with PMH of NPH s/p shunt, RA, CAD, HTN, Hypothyroid, Depression, Anxiety, Gait Disorder, Chronic Vertigo, Urinary Frequency presents with b/l proximal leg weakness. Shuntogram showed shunt to be functioning appropriately. Head CT showed no signs of acute pathology. Pt CT thoraccic spine was negative for acute changes.Patient does not has any new focal deficit.She was evaluated by Physical therapy and [facility] has been recommended.She will be discharged to rehab today and will follow up with PCP and Neurology. Management plan was discussed in detail with patient Education was provided.
--- NOTE | 2017-04-27 14:49 | CP.PCM.DIS ---
<Carol Larsen - Last Filed: 04/27/17 15:07> Provider - Provider Date of Admission: 04/25/17 20:28 Attending physician: Eldon Yee MD Primary care physician: Aba Joseph MD Consults: Neurology: Kang Time Spent in preparation of Discharge (in minutes): 31 Hospital Course - Lab Results Lab Results: Most Recent Lab Values WBC 5.3 10^3/ul (4.5-11.0) 04/27/17 09:00 RBC 4.23 10^6/uL (3.5-6.1) 04/27/17 09:00 Hgb 13.3 g/dL (12.0-16.0) 04/27/17 09:00 Hct 39.3 % (36.0-48.0) 04/27/17 09:00 MCV 92.9 fl (80.0-105.0) 04/27/17 09:00 MCH 31.4 pg (25.0-35.0) 04/27/17 09:00 MCHC 33.8 g/dl (31.0-37.0) 04/27/17 09:00 RDW 14.6 % (11.5-14.5) H 04/27/17 09:00 Plt Count 223 10^3/uL (120.0-450.0) 04/27/17 09:00 MPV 9.7 fl (7.0-11.0) 04/27/17 09:00 Gran % 64.7 % (50.0-68.0) 04/25/17 18:20 Lymph % (Auto) 18.5 % (22.0-35.0) L 04/25/17 18:20 [place] % (Auto) 11.5 % (1.0-6.0) H 04/25/17 18:20 Eos % (Auto) 4.8 % (1.5-5.0) 04/25/17 18:20 Baso % (Auto) 0.5 % (0.0-3.0) 04/25/17 18:20 Gran # 4.16 (1.4-6.5) 04/25/17 18:20 Lymph # 1.2 (1.2-3.4) 04/25/17 18:20 [place] # 0.7 (0.1-0.6) H 04/25/17 18:20 Eos # 0.3 (0.0-0.7) 04/25/17 18:20 Baso # 0.03 K/mm3 (0.0-2.0) 04/25/17 18:20 Sodium 141 mmol/L (132-148) 04/27/17 09:00 Potassium 4.4 mmol/L (3.6-5.0) 04/27/17 09:00 Chloride 104 mmol/L (98-107) 04/27/17 09:00 Carbon Dioxide 28 mmol/L (21-33) 04/27/17 09:00 Anion Gap 13 (10-20) 04/27/17 09:00 BUN 13 mg/dL (7-21) 04/27/17 09:00 Creatinine 0.8 mg/dL (0.5-1.4) 04/27/17 09:00 Est GFR ( Amer) > 60 04/27/17 09:00 Est GFR (Non-Af Amer) > 60 04/27/17 09:00 Random Glucose 140 mg/dL (70-110) H 04/27/17 09:00 Calcium 9.3 mg/dL (8.4-10.5) 04/27/17 09:00 Phosphorus 4.0 mg/dL (2.5-4.5) 04/27/17 09:00 Magnesium 1.8 mg/dL (1.7-2.2) 04/27/17 09:00 Total Bilirubin 0.5 mg/dL (0.2-1.3) 04/25/17 18:20 AST 32 U/L (15-39) 04/25/17 18:20 ALT 31 U/L (7-56) 04/25/17 18:20 Alkaline Phosphatase 102 U/L (38-133) 04/25/17 18:20 Total Creatine Kinase 80 U/L (35-230) 04/25/17 18:20 Troponin I < 0.01 ng/mL 04/25/17 18:20 Total Protein 7.0 g/dL (5.8-8.3) 04/25/17 18:20 Albumin 4.0 g/dL (3.0-4.8) 04/25/17 18:20 Globulin 3.0 gm/dL 04/25/17 18:20 Albumin/Globulin Ratio 1.3 (1.1-1.8) 04/25/17 18:20 Free T4 0.87 ng/dL (0.78-2.19) 04/25/17 18:00 TSH 3rd Generation 2.74 mIU/mL (0.46-4.68) 04/25/17 18:00 Urine Color Yellow (YELLOW) 04/25/17 19:42 Urine Appearance Clear (CLEAR) 04/25/17 19:42 Urine pH 6.5 (4.7-8.0) 04/25/17 19:42 Ur Specific [place] 1.010 (1.005-1.035) 04/25/17 19:42 Urine Protein Negative mg/dL (<30 mg/dL) 04/25/17 19:42 Urine Glucose (UA) Negative mg/dL (NEGATIVE) 04/25/17 19:42 Urine Ketones Negative mg/dL (NEGATIVE) 04/25/17 19:42 Urine Blood Negative (NEGATIVE) 04/25/17 19:42 Urine Nitrate Negative (NEGATIVE) 04/25/17 19:42 Urine Bilirubin Negative (NEGATIVE) 04/25/17 19:42 Urine Urobilinogen 0.2 E.U./dL (<1 E.U./dL) 04/25/17 19:42 Ur Leukocyte Esterase Moderate Viktoria/uL (NEGATIVE) H 04/25/17 19:42 Urine RBC 0 - 2 /hpf (0-2) 04/25/17 19:42 Urine WBC 2 - 5 /hpf (0-6) 04/25/17 19:42 Ur Epithelial Cells 0 - 2 /hpf (0-5) 04/25/17 19:42 Urine Bacteria Few (NEG) 04/25/17 19:42 - Hospital Course Hospital Course: Mrs. 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 On the morning of 04/25/17 patient reports that she fell backwards after she tried to stand up from sitting on her couch after she experienced sudden weakness in both of her legs. She describes the feeling as "her legs giving out". She denies any trauma to her head or cervical spine and also denies any vertigo or syncope. Patient states that she regained her strength in both legs shortly afterwards but is afraid to walk now because this has happened twice in the past week. At baseline she ambulates with a walker due to gait imbalance but states that gait imbalance is not why she fell this day. Patient was admitted for observation. CT head showed ventriculomegaly and R sided ventricular shunt, B/L craniotomies. Neurology was consulted and on the case. CT thoracic spine showed mild disc degeneration in lower thoracic spine. No evidence of spinal stenosis. Patient did not have any neurologic or focal deficits. Patient was clear from neurological perspective. For hypothyroid, patient continued synthroid. For HTN, patient continued atenolol. Labs were reviewed and were WNL. Physical Therapy evaluated the patient and recommended disposition to [facility]. Patient was accepted to [facility] and was subsequently discharged from the hospital. Patient was medically stable on day of discharge. Patient instructed to follow up with PMD and neurology within 1 week. All questions and concerns were addressed. Discharge Exam - Head Exam Head Exam: ATRAUMATIC, NORMAL INSPECTION Additional comments: Shunt patent and easily compressible - Eye Exam Eye Exam: EOMI, Normal appearance Pupil Exam: NORMAL ACCOMODATION - ENT Exam ENT Exam: Mucous Membranes Moist - Respiratory Exam Respiratory Exam: Clear to PA & Lateral, NORMAL BREATHING PATTERN, UNREMARKABLE. absent: Rales, Rhonchi, Wheezes - Cardiovascular Exam Cardiovascular Exam: REGULAR RHYTHM, +S1, +S2 - GI/Abdominal Exam GI & Abdominal Exam: Normal Bowel Sounds, Soft. absent: Guarding, Rebound, Rigid, Tenderness - Extremities Exam Extremities exam: normal inspection, pedal pulses present - Back Exam Back exam: NORMAL INSPECTION - Neurological Exam Neurological exam: Alert, CN II-XII Intact, Oriented x3 - Psychiatric Exam Psychiatric exam: Normal Affect, Normal Mood - Skin Skin Exam: Normal Color, Warm Discharge Plan - Follow Up Plan Condition: FAIR Disposition: REHAB FACILITY/REHAB UNIT Additional Instructions: Patient is clear for discharge to [facility]. Patient to follow up with PMD and Neurology within 1 week. Patient to resume all home medications. Referrals: Aba Joseph MD [Primary Care Provider] - <Kong QUEZADA,Rafaela - Last Filed: 04/27/17 16:10> Provider - Provider Date of Admission: 04/25/17 20:28 Attending physician: Eldon Yee MD Primary care physician: Aba Joseph MD Hospital Course - Lab Results Lab Results: Most Recent Lab Values WBC 5.3 10^3/ul (4.5-11.0) 04/27/17 09:00 RBC 4.23 10^6/uL (3.5-6.1) 04/27/17 09:00 Hgb 13.3 g/dL (12.0-16.0) 04/27/17 09:00 Hct 39.3 % (36.0-48.0) 04/27/17 09:00 MCV 92.9 fl (80.0-105.0) 04/27/17 09:00 MCH 31.4 pg (25.0-35.0) 04/27/17 09:00 MCHC 33.8 g/dl (31.0-37.0) 04/27/17 09:00 RDW 14.6 % (11.5-14.5) H 04/27/17 09:00 Plt Count 223 10^3/uL (120.0-450.0) 04/27/17 09:00 MPV 9.7 fl (7.0-11.0) 04/27/17 09:00 Gran % 64.7 % (50.0-68.0) 04/25/17 18:20 Lymph % (Auto) 18.5 % (22.0-35.0) L 04/25/17 18:20 [place] % (Auto) 11.5 % (1.0-6.0) H 04/25/17 18:20 Eos % (Auto) 4.8 % (1.5-5.0) 04/25/17 18:20 Baso % (Auto) 0.5 % (0.0-3.0) 04/25/17 18:20 Gran # 4.16 (1.4-6.5) 04/25/17 18:20 Lymph # 1.2 (1.2-3.4) 04/25/17 18:20 [place] # 0.7 (0.1-0.6) H 04/25/17 18:20 Eos # 0.3 (0.0-0.7) 04/25/17 18:20 Baso # 0.03 K/mm3 (0.0-2.0) 04/25/17 18:20 Sodium 141 mmol/L (132-148) 04/27/17 09:00 Potassium 4.4 mmol/L (3.6-5.0) 04/27/17 09:00 Chloride 104 mmol/L (98-107) 04/27/17 09:00 Carbon Dioxide 28 mmol/L (21-33) 04/27/17 09:00 Anion Gap 13 (10-20) 04/27/17 09:00 BUN 13 mg/dL (7-21) 04/27/17 09:00 Creatinine 0.8 mg/dL (0.5-1.4) 04/27/17 09:00 Est GFR ( Amer) > 60 04/27/17 09:00 Est GFR (Non-Af Amer) > 60 04/27/17 09:00 Random Glucose 140 mg/dL (70-110) H 04/27/17 09:00 Calcium 9.3 mg/dL (8.4-10.5) 04/27/17 09:00 Phosphorus 4.0 mg/dL (2.5-4.5) 04/27/17 09:00 Magnesium 1.8 mg/dL (1.7-2.2) 04/27/17 09:00 Total Bilirubin 0.5 mg/dL (0.2-1.3) 04/25/17 18:20 AST 32 U/L (15-39) 04/25/17 18:20 ALT 31 U/L (7-56) 04/25/17 18:20 Alkaline Phosphatase 102 U/L (38-133) 04/25/17 18:20 Total Creatine Kinase 80 U/L (35-230) 04/25/17 18:20 Troponin I < 0.01 ng/mL 04/25/17 18:20 Total Protein 7.0 g/dL (5.8-8.3) 04/25/17 18:20 Albumin 4.0 g/dL (3.0-4.8) 04/25/17 18:20 Globulin 3.0 gm/dL 04/25/17 18:20 Albumin/Globulin Ratio 1.3 (1.1-1.8) 04/25/17 18:20 Free T4 0.87 ng/dL (0.78-2.19) 04/25/17 18:00 TSH 3rd Generation 2.74 mIU/mL (0.46-4.68) 04/25/17 18:00 Urine Color Yellow (YELLOW) 04/25/17 19:42 Urine Appearance Clear (CLEAR) 04/25/17 19:42 Urine pH 6.5 (4.7-8.0) 04/25/17 19:42 Ur Specific [place] 1.010 (1.005-1.035) 04/25/17 19:42 Urine Protein Negative mg/dL (<30 mg/dL) 04/25/17 19:42 Urine Glucose (UA) Negative mg/dL (NEGATIVE) 04/25/17 19:42 Urine Ketones Negative mg/dL (NEGATIVE) 04/25/17 19:42 Urine Blood Negative (NEGATIVE) 04/25/17 19:42 Urine Nitrate Negative (NEGATIVE) 04/25/17 19:42 Urine Bilirubin Negative (NEGATIVE) 04/25/17 19:42 Urine Urobilinogen 0.2 E.U./dL (<1 E.U./dL) 04/25/17 19:42 Ur Leukocyte Esterase Moderate Viktoria/uL (NEGATIVE) H 04/25/17 19:42 Urine RBC 0 - 2 /hpf (0-2) 04/25/17 19:42 Urine WBC 2 - 5 /hpf (0-6) 04/25/17 19:42 Ur Epithelial Cells 0 - 2 /hpf (0-5) 04/25/17 19:42 Urine Bacteria Few (NEG) 04/25/17 19:42 Attending/Attestation - Attestation I have personally seen and examined this patient.: Yes I have fully participated in the care of the patient.: Yes I have reviewed all pertinent clinical information, including history, physical exam and plan: Yes Notes (Text): 04/27/17 16:10 Patient was seen and examined with medical numerical control operator. 71 y/o F with PMH of NPH s/p shunt, RA, CAD, HTN, Hypothyroid, Depression, Anxiety, Gait Disorder, Chronic Vertigo, Urinary Frequency presents with b/l proximal leg weakness. Shuntogram showed shunt to be functioning appropriately. Head CT showed no signs of acute pathology. Pt CT thoraccic spine was negative for acute changes.Patient does not has any new focal deficit.She was evaluated by Physical therapy and [facility] has been recommended.She will be discharged to rehab today and will follow up with PCP and Neurology. Management plan was discussed in detail with patient Education was provided.
[2017-04-27 17:34] VITALS: BP 117/44; PULSE 52; RESP 18; TEMP 97.9; O2SAT 97
== END 2017-04-27 18:25 | DRG 74 ==
LOC: ED 16:08 → ERH 20:28 → 5RSO 23:18
PROVIDERS: ADMIT Internal Medicine; ATTEND Internal Medicine
DX: G62.9 Polyneuropathy, unspecified (principal); G91.2 (Idiopathic) normal pressure hydrocephalus; M06.9 Rheumatoid arthritis, unspecified; M62.81 Muscle weakness (generalized); R26.9 Unspecified abnormalities of gait and mobility; I10 Essential (primary) hypertension; E03.9 Hypothyroidism, unspecified; I25.10 Atherosclerotic heart disease of native coronary artery without angina pectoris; F41.9 Anxiety disorder, unspecified; F32.9 Major depressive disorder, single episode, unspecified; R42 Dizziness and giddiness; Z96.653 Presence of artificial knee joint, bilateral; Z98.2 Presence of cerebrospinal fluid drainage device; Z88.2 Allergy status to sulfonamides; Z87.891 Personal history of nicotine dependence

== ENCOUNTER 2017-08-22 12:38 | Day surgery (SDC) | payer MEDICARE ==
[2017-08-22 08:18] VITALS: BMI 34.1
[~2017-08-22 12:38] MED LIST: Sodium Chloride 0.9% 1,000 ML IV SCH
[2017-08-22] MEDS ORDERED: Sodium Chloride 0.9% 1,000 ML IV SCH (12:45)
[2017-08-22] MEDS ORDERED: Propofol 10 mg/ml Inj (20 ML) ONE (13:13)
[2017-08-22] MEDS ORDERED: Lidocaine 1% Inj (20ml) ONE (13:55)
[2017-08-22 15:14] VITALS: BP 139/59; PULSE 63; RESP 19; O2SAT 99
[2017-08-22 15:32] VITALS: TEMP 98.3
== END 2017-08-22 15:30 | disposition home or self-care (01) ==
LOC: ENDO 12:38
PROVIDERS: ATTEND Internal Medicine Gastroenterology
DX: K21.0 Gastro-esophageal reflux disease with esophagitis (principal); K57.30 Diverticulosis of large intestine without perforation or abscess without bleeding; K29.50 Unspecified chronic gastritis without bleeding; K44.9 Diaphragmatic hernia without obstruction or gangrene; K22.10 Ulcer of esophagus without bleeding; K64.8 Other hemorrhoids
CPT/HCPCS: 43239; 45378; 88305; 88312; 88342; J2704; J3010; J7040

== ENCOUNTER 2017-10-04 01:38 | Emergency (ER) | payer MEDICARE ==
[2017-10-04 01:40] VITALS: BMI 32.9
[2017-10-04 01:52] VITALS: RESP 18; TEMP 98.6
--- NOTE | 2017-10-04 02:49 | ED PDOC ---
Arrival/HPI - General Chief Complaint: Trauma Time Seen by Provider: 10/04/17 01:42 Historian: Patient - History of Present Illness Narrative History of Present Illness (Text): 10/04/17 02:46 72 year old female, whose past medical history includes hydrocephalus s/p CERTIFIED PERSONAL CHEF shunt, hypertension, hypothyroidism and rheumatoid arthritis, presents to the Emergency department complaining of fall tonight. Patient informs using the commode when she fell and hit her head and right knee on the dresser. Patient does not recall loss of consciousness or any other trauma. Patient informs some discomfort to her right knee. Patient denies any fever, chills, nausea, vomiting , diarrhea, chest pain, shortness of breath, abdominal pain or any other complaints. PMD: Dr. Joseph Time/Duration: Prior to Arrival Symptom Onset: Sudden Symptom Course: Improving Activities at Onset: Light Context: Home Past Medical History - Provider Review Nursing Documentation Reviewed: Yes - Infectious Disease Hx of Infectious Diseases: None - Tetanus Immunization Tetanus Immunization: Unknown - Cardiac Hx Pacemaker: No - Pulmonary Hx Respiratory Disorders: No - Neurological Hx Paralysis: No - HEENT Hx HEENT Disorder: Yes Hx Blind: Yes Hx Macular Degeneration: Yes Other/Comment: LEGALLY BLIND - Renal Hx Renal Disorder: No - Endocrine/Metabolic Hx Hypothyroidism: Yes - Hematological/Oncological Hx Blood Transfusions: Yes Hx Blood Transfusion Reaction: No - Integumentary Hx Dermatological Disorder: No - Musculoskeletal/Rheumatological Hx Musculoskeletal Disorders: Yes - Gastrointestinal Hx Gastrointestinal Disorders: Yes Hx Gastroesophageal Reflux: Yes - Genitourinary/Gynecological Hx Genitourinary Disorders: Yes (INCONTINENT) - Psychiatric Hx Emotional Abuse: No Hx Physical Abuse: No Hx Substance Use: No - Surgical History Hx Joint Replacement: Yes Hx Orthopedic Surgery: Yes Other/Comment: brain shunt - Anesthesia Hx Anesthesia Reactions: No Hx Malignant Hyperthermia: No - Suicidal Assessment Feels Threatened In Home Enviroment: No Family/Social History - Physician Review Nursing Documentation Reviewed: Yes Family/Social History: No Known Family HX Smoking Status: Former Smoker Hx Alcohol Use: No Hx Substance Use: No Hx Substance Use Treatment: No Allergies/Home Meds Allergies/Adverse Reactions: Allergies Sulfa (Sulfonamide Antibiotics) Allergy (Verified 04/25/17 17:00) RASH sulfamethoxazole [From Bactrim] Allergy (Verified 04/25/17 16:59) RASH trimethoprim [From Bactrim] Allergy (Verified 04/25/17 16:59) RASH eye antibiotic Allergy (Uncoded 01/22/17 16:11) SWELLING BACITRACIN OINT AROUND EYES CAUSED FACIAL SWELLING Home Medications: Home Meds Medication Instructions Recorded Confirmed Levothyroxine [Synthroid] 0.05 mg PO QOTHERDAY 11/21/16 10/04/17 Levothyroxine [Synthroid] 0.075 mg PO MWF 11/21/16 10/04/17 Atenolol [Tenormin] 25 tab PO DAILY 02/01/17 10/04/17 Polyethylene Glycol/Polyvinyl 1 % OU PRN PRN 07/26/17 10/04/17 [Artificial Tears] Lansoprazole [Prevacid] 30 mg PO DAILY 08/22/17 10/04/17 Refresh Opth Soln 1 drop OU DAILY 08/22/17 10/04/17 Review of Systems - Physician Review All systems were reviewed & negative as marked: Yes - Review of Systems Constitutional: Normal. absent: Fevers Eyes: Normal ENT: Normal Respiratory: Normal. absent: SOB Cardiovascular: Normal. absent: Chest Pain Gastrointestinal: Normal. absent: Abdominal Pain, Diarrhea, Nausea, Vomiting Genitourinary Female: Normal Musculoskeletal: Other (right knee discomfort ) Skin: Normal Neurological: Normal Endocrine: Normal Hemo/Lymphatic: Normal Psychiatric: Normal Physical Exam Vital Signs Reviewed: Yes Vital Signs Temp Pulse Resp BP Pulse Ox 10/04/17 05:27 72 18 132/82 99 10/04/17 03:38 68 18 130/68 98 10/04/17 01:38 98.6 F 55 L 18 132/43 L 98 Temperature: Afebrile Blood Pressure: Normal Pulse: Bradycardic Respiratory Rate: Normal Appearance: Positive for: Well-Appearing, Non-Toxic, Comfortable Pain Distress: None Mental Status: Positive for: Alert and Oriented X 3 - Systems Exam Head: Present: Atraumatic, Normocephalic Pupils: Present: PERRL Extroacular Muscles: Present: EOMI Conjunctiva: Present: Normal Mouth: Present: Moist Mucous Membranes Neck: Present: Normal Range of Motion Respiratory/Chest: Present: Clear to Auscultation, Good Air Exchange. No: Respiratory Distress, Accessory Muscle Use Cardiovascular: Present: Regular Rate and Rhythm, Normal S1, S2. No: Murmurs Abdomen: Present: Normal Bowel Sounds. No: Tenderness, Distention, Peritoneal Signs Back: Present: Normal Inspection Upper Extremity: Present: Normal Inspection. No: Cyanosis, Edema Lower Extremity: Present: Tenderness (mild right knee tenderness ). No: Edema Neurological: Present: GCS=15, CN II-XII Intact, Speech Normal Skin: Present: Warm, Dry, Normal Color. No: Rashes Psychiatric: Present: Alert, Oriented x 3, Normal Insight, Normal Concentration Medical Decision Making ED Course and Treatment: 10/04/17 02:52 Impression: 72 year old female presents to the Emergency department s/p fall and discomfort to right knee. Plan: -- CT of Head -- EKG -- Labs -- Chest X-ray -- Blood Culture -- Urine Culture -- Urinalysis -- X-ray of right knee -- Reassess and disposition Prior Visits: Notes and results from previous visits were reviewed. On 04/25/17 patient presented to the Emergency department complaining of multiple falls. Patient was admitted to the hospital for further observation. Progress Notes: 10/04/17 04:03 CT of head reviewed by radiologist, shows: FINDINGS: Brain: Mild atrophy. No intracranial hemorrhage. No mass. No definite edema. Ventricles: Dilated out of proportion to sulci, grossly stable. Stable position of ventricular shunt. Bones/joints: No acute fracture. Postsurgical changes of calvarium. Degenerative changes of temporomandibular joints. Soft tissues: Unremarkable. Vasculature: Minimal atherosclerotic disease of intracranial arteries. Sinuses: Minimal focal mucosal thickening of LEFT maxillary sinus. Mastoid air cells: No mastoid effusion. Orbits: Unremarkable as visualized. IMPRESSION: 1. Hydrocephalus, grossly stable. 2. Incidental/non-acute findings are described above. - Lab Interpretations Microbiology Results: Microbiology Results 10/04/17 03:20 Blood-Venous Blood Culture - Preliminary NO GROWTH AFTER 3 DAYS 10/04/17 02:50 Blood-Venous Blood Culture - Preliminary NO GROWTH AFTER 3 DAYS Lab Results: 10/04/17 02:50 10/04/17 02:50 Lab Results 10/04/17 02:50: Alcohol, Quantitative < 10 10/04/17 02:50: Sodium 138, Potassium 4.8, Chloride 103, Carbon Dioxide 24, Anion Gap 16, BUN 17, Creatinine 0.7, Est GFR ( Amer) > 60, Est GFR (Non- Af Amer) > 60, Random Glucose 101, Calcium 9.3, Phosphorus 3.7, Magnesium 2.0, Total Bilirubin 0.6, AST 44 H D, ALT 32, Alkaline Phosphatase 96, Lactate Dehydrogenase 787 H, Total Creatine Kinase 125, Troponin I 0.01, Total Protein 7.9, Albumin 4.6, Globulin 3.3, Albumin/Globulin Ratio 1.4 10/04/17 02:50: PT 10.7, INR 0.94, APTT 33.4 10/04/17 02:50: WBC 7.0, RBC 4.20, Hgb 12.9, Hct 39.2, MCV 93.3, MCH 30.7, MCHC 32.9, RDW 14.8 H, Plt Count 263, MPV 10.6, Gran % 59.9, Lymph % (Auto) 26.8, [place] % (Auto) 9.4 H, Eos % (Auto) 3.3, Baso % (Auto) 0.6, Gran # 4.22, Lymph # 1.9, [place] # 0.7 H, Eos # 0.2, Baso # 0.04 - RAD Interpretation Narrative RAD Interpretations (Text): 10/04/17 05:41 allx rays neg Radiology Orders: 10/04/17 02:15 HEAD W/O CONTRAST [CT] Stat 10/04/17 02:16 CHEST ONE VIEW [RAD] Stat KNEE RIGHT 2 VIEWS (AP & LAT) [RAD] Stat Him Director: Radiologist - Scribe Statement The provider has reviewed the documentation as recorded by the Felicitasibtere Pulido. All medical record entries made by the Felicitasibtere were at my direction and personally dictated by me. I have reviewed the chart and agree that the record accurately reflects my personal performance of the history, physical exam, medical decision making, and the department course for this patient. I have also personally directed, reviewed, and agree with the discharge instructions and disposition. Disposition/Present on Arrival - Present on Arrival Any Indicators Present on Arrival: No History of DVT/PE: No History of Uncontrolled Diabetes: No Urinary Catheter: No History of Decub. Ulcer: No History Surgical Site Infection Following: None - Disposition Have Diagnosis and Disposition been Completed?: Yes Diagnosis: Fall, Head injury, Knee contusion Disposition: HOME/ ROUTINE Disposition Time: 05:30 Condition: GOOD Discharge Instructions (ExitCare): Head Injury (ED), Knee Pain (ED) Referrals: Aba Joseph MD [Primary Care Provider] - Follow up with primary Forms: [employer] (Slovenian)
[2017-10-04 03:32] LABS: BASO # 0.04 K/mm3 (0.0-2.0); BASO % 0.6 % (0.0-3.0); EOS # 0.2 (0.0-0.7); EOS % 3.3 % (1.5-5.0); GRAN # 4.22 (1.4-6.5); GRAN % 59.9 % (50.0-68.0); HEMOGLOBIN 12.9 g/dL (12.0-16.0); LYMPH # 1.9 (1.2-3.4); LYMPH % 26.8 % (22.0-35.0); MEAN CELL VOLUME 93.3 fl (80.0-105.0); MEAN CORPUSCULAR HEMOGLOBIN 30.7 pg (25.0-35.0); MEAN CORPUSCULAR HGB CONC 32.9 g/dl (31.0-37.0); MEAN PLATELET VOLUME 10.6 fl (7.0-11.0); MONO # 0.7 (0.1-0.6); MONO % 9.4 % (1.0-6.0); RBC 4.2 10^6/uL (3.5-6.1); RED CELL DISTRIBUTION WIDTH 14.8 % (11.5-14.5)
[2017-10-04 03:33] LABS: INR 0.94 (0.93-1.08); PARTIAL THROMBOPLASTIN TIME 33.4 Seconds (25.1-36.5); PROTHROMBIN TIME 10.7 SECONDS (9.4-12.5)
--- NOTE | 2017-10-04 03:41 | CT ---
EXAM: CT Head Without Intravenous Contrast CLINICAL HISTORY: 72 years old, female; Signs and symptoms; Syncope and collapse; Prior surgery; Surgery date: 6+ months TECHNIQUE: Axial computed tomography images of the head/brain without intravenous contrast. All CT scans at this facility use one or more dose reduction techniques, viz.: automated exposure control; ma/kV adjustment per patient size (including targeted exams where dose is matched to indication; i.e. head); or iterative reconstruction technique. Coronal and sagittal reformatted images were created and reviewed. COMPARISON: CT - HEAD W/O CONTRAST 2017-08-01 09:05 FINDINGS: Brain: Mild atrophy. No intracranial hemorrhage. No mass. No definite edema. Ventricles: Dilated out of proportion to sulci, grossly stable. Stable position of ventricular shunt. Bones/joints: No acute fracture. Postsurgical changes of calvarium. Degenerative changes of temporomandibular joints. Soft tissues: Unremarkable. Vasculature: Minimal atherosclerotic disease of intracranial arteries. Sinuses: Minimal focal mucosal thickening of LEFT maxillary sinus. Mastoid air cells: No mastoid effusion. Orbits: Unremarkable as visualized. IMPRESSION: 1. Hydrocephalus, grossly stable. 2. Incidental/non-acute findings are described above.
[2017-10-04 05:17] LABS: ALB/GLOB RATIO 1.4 (1.1-1.8); ALBUMIN 4.6 g/dL (3.0-4.8); ALT/SGPT 32 U/L (7-56); AST/SGOT 44 U/L (14-36); BLOOD UREA NITROGEN 17 mg/dL (7-21); CALCIUM 9.3 mg/dL (8.4-10.5); GFR AFRICAN-AMERICAN > 60; GFR NON-AFRICAN AMERICAN > 60; TROPONIN I 0.01 ng/mL
[2017-10-04 05:35] VITALS: BP 132/82; PULSE 72; O2SAT 99
--- NOTE | 2017-10-04 08:47 | RAD ---
PROCEDURE: CHEST RADIOGRAPH, 1 VIEW HISTORY: pain COMPARISON: 04/25/2017 FINDINGS: LUNGS: Clear. PLEURA: No pneumothorax or pleural fluid seen. CARDIOVASCULAR: Normal. OSSEOUS STRUCTURES: No significant abnormalities. VISUALIZED UPPER ABDOMEN: Normal. OTHER FINDINGS: None. IMPRESSION: No active disease.
--- NOTE | 2017-10-04 08:49 | RAD ---
PROCEDURE: Right Knee Radiographs. HISTORY: fall COMPARISON: None. FINDINGS: BONES: Normal. No fracture. JOINTS: There is a right knee prosthesis. There is no fracture or loosening JOINT EFFUSION: None. OTHER FINDINGS: None. IMPRESSION: No fracture or loosening
== END 2017-10-04 05:33 | disposition home or self-care (01) ==
LOC: ED 01:38
DX: S09.90XA Unspecified injury of head, initial encounter (principal); S80.01XA Contusion of right knee, initial encounter; W01.190A Fall on same level from slipping, tripping and stumbling with subsequent striking against furniture, initial encounter; Y92.89 Other specified places as the place of occurrence of the external cause; I10 Essential (primary) hypertension; G91.9 Hydrocephalus, unspecified; H54.8 Legal blindness, as defined in USA; Z87.891 Personal history of nicotine dependence
CPT/HCPCS: 70450; 71045; 73560; 80053; 82550; 83615; 83735; 84100; 84484; 85025; 85610; 85730; 87040; 99285; G0480

== ENCOUNTER 2018-01-01 11:26 | Emergency (ER) | payer MEDICARE ==
[2018-01-01 11:42] VITALS: BMI 33.8
[2018-01-01 11:48] VITALS: RESP 18; TEMP 98.3
[2018-01-01] MEDS ORDERED: cefTRIAXone 1 gm 1 GM/100 ML BAG IVPB STA (12:11)
[2018-01-01] MEDS ORDERED: Vancomycin 1gm in NS 250ml 1 GM/250 ML BAG IVPB STA (12:11)
--- NOTE | 2018-01-01 12:17 | ED PDOC ---
Arrival/HPI - General Chief Complaint: Burn Time Seen by Provider: 01/01/18 12:06 Historian: Patient - History of Present Illness Narrative History of Present Illness (Text): 01/01/18 12:15 72 year old male, whose PMH includes RA and hypertension, who presents to the emergency department complaining of right foot wound s/p spilling hot water 1 week ago. Patient reports it is swollen and has erythema. No other complaints were made. Time/Duration: 1 week Symptom Onset: Gradual Symptom Course: Unchanged Context: Home Past Medical History - Provider Review Nursing Documentation Reviewed: Yes - Infectious Disease Hx of Infectious Diseases: None - Tetanus Immunization Tetanus Immunization: Unknown - Cardiac Hx Hypertension: Yes Hx Pacemaker: No - Pulmonary Hx Respiratory Disorders: No - Neurological Hx Dizziness: Yes Hx Paralysis: No Other/Comment: hydrocephalus, with MANUAL QA TESTER shunt - HEENT Hx HEENT Disorder: Yes Hx Blind: Yes Hx Macular Degeneration: Yes Other/Comment: LEGALLY BLIND - Renal Hx Renal Disorder: No - Endocrine/Metabolic Hx Hypothyroidism: Yes - Hematological/Oncological Hx Blood Transfusions: Yes Hx Blood Transfusion Reaction: No - Integumentary Hx Dermatological Disorder: No - Musculoskeletal/Rheumatological Hx Musculoskeletal Disorders: Yes Hx Arthritis: Yes Hx Rheumatoid Arthritis: Yes - Gastrointestinal Hx Gastrointestinal Disorders: Yes Hx Gastroesophageal Reflux: Yes - Genitourinary/Gynecological Hx Genitourinary Disorders: Yes (INCONTINENT) - Psychiatric Hx Emotional Abuse: No Hx Physical Abuse: No Hx Substance Use: No - Surgical History Hx Joint Replacement: Yes Hx Orthopedic Surgery: Yes Other/Comment: brain shunt. R wrist fusion. marilu knee replacement - Anesthesia Hx Anesthesia: Yes Hx Anesthesia Reactions: No Hx Malignant Hyperthermia: No - Suicidal Assessment Feels Threatened In Home Enviroment: No Family/Social History - Physician Review Nursing Documentation Reviewed: Yes Family/Social History: Unknown Family HX Smoking Status: Former Smoker Hx Alcohol Use: No Hx Substance Use: No Hx Substance Use Treatment: No Allergies/Home Meds Allergies/Adverse Reactions: Allergies Sulfa (Sulfonamide Antibiotics) Allergy (Verified 04/25/17 17:00) RASH sulfamethoxazole [From Bactrim] Allergy (Verified 04/25/17 16:59) RASH trimethoprim [From Bactrim] Allergy (Verified 04/25/17 16:59) RASH eye antibiotic Allergy (Uncoded 01/22/17 16:11) SWELLING BACITRACIN OINT AROUND EYES CAUSED FACIAL SWELLING Home Medications: Home Meds Medication Instructions Recorded Confirmed Levothyroxine [Synthroid] 0.05 mg PO QOTHERDAY 11/21/16 01/01/18 Levothyroxine [Synthroid] 0.075 mg PO MWF 11/21/16 01/01/18 Atenolol [Tenormin] 25 tab PO DAILY 02/01/17 01/01/18 Polyethylene Glycol/Polyvinyl 1 % OU PRN PRN 07/26/17 01/01/18 [Artificial Tears] Lansoprazole [Prevacid] 30 mg PO DAILY 08/22/17 01/01/18 Refresh Opth Soln 1 drop OU DAILY 08/22/17 01/01/18 Gabapentin [Neurontin] 100 mg PO TID 01/01/18 01/01/18 Review of Systems - Physician Review All systems were reviewed & negative as marked: Yes - Review of Systems Respiratory: absent: SOB Cardiovascular: absent: Chest Pain Musculoskeletal: Other (right foot wound) Physical Exam Vital Signs Reviewed: Yes Vital Signs Temp Pulse Resp BP Pulse Ox 01/01/18 13:57 56 L 18 165/76 H 100 01/01/18 11:47 98.3 F 55 L 18 120/81 97 Temperature: Afebrile Blood Pressure: Normal Pulse: Bradycardic Respiratory Rate: Normal Appearance: Positive for: Well-Appearing, Non-Toxic, Comfortable Pain Distress: None Mental Status: Positive for: Alert and Oriented X 3 - Systems Exam Head: Present: Atraumatic, Normocephalic Pupils: Present: PERRL Extroacular Muscles: Present: EOMI Conjunctiva: Present: Normal Mouth: Present: Moist Mucous Membranes Lower Extremity: Present: NORMAL PULSES, Normal ROM, Swelling, Erythema (right foot sorrouding erythema), Neurovascularly Intact, Other (right foot 2 cm burn with granulation tissue surrounding erythema). No: Edema, Cyanosis, Tenderness Neurological: Present: GCS=15, CN II-XII Intact, Speech Normal Skin: Present: Warm, Dry, Normal Color. No: Rashes Psychiatric: Present: Alert, Oriented x 3, Normal Insight, Normal Concentration Medical Decision Making ED Course and Treatment: 01/01/18 12:20 Impression: 72 year old female with right foot 2 cm burn with granulation tissue and surrounding erythema Plan: -- Rocephin and Vancomycin -- Labs -- Reassess and disposition Progress Notes: 01/01/18 15:17 burn healing with 2 cm surroudning erythema. labs unremarkable. pt prefers to try outpt antibiotics trial, and will return with worsening. pt states shee will see her pmd for f/u. - Lab Interpretations Lab Results: 01/01/18 13:20 01/01/18 14:00 Lab Results 01/01/18 14:00: Sodium 137, Potassium 4.5, Chloride 101, Carbon Dioxide 26, Anion Gap 15, BUN 12, Creatinine 0.7, Est GFR ( Amer) > 60, Est GFR (Non- Af Amer) > 60, Random Glucose 82, Calcium 9.0, Total Bilirubin 0.4, AST 27, ALT 34, Alkaline Phosphatase 93, Total Protein 6.8, Albumin 4.1, Globulin 2.7, Albumin/Globulin Ratio 1.5 01/01/18 13:20: PT 11.9, INR 1.03, APTT 36.1 01/01/18 13:20: WBC 7.3, RBC 3.96, Hgb 12.1, Hct 36.1, MCV 91.2 D, MCH 30.6, MCHC 33.5, RDW 15.1 H, Plt Count 249, MPV 9.5, Gran % 65.2, Lymph % (Auto) 17.8 L, [place] % (Auto) 14.6 H, Eos % (Auto) 2.0, Baso % (Auto) 0.4, Gran # 4.78, Lymph # (Auto) 1.3, [place] # (Auto) 1.1 H, Eos # (Auto) 0.2, Baso # (Auto) 0.03 - Medication Orders Current Medication Orders: Discontinued Medications Ceftriaxone Sodium (Rocephin 1 Gram Ivpb) 1 gm in 100 mls @ 100 mls/hr IVPB STAT STA PRN Reason: Protocol Stop: 01/01/18 13:10 Last Admin: 01/01/18 13:26 Dose: 100 mls/hr eMAR Start Stop Document 01/01/18 13:26 KATHRYN (Rec: 01/01/18 13:27 [email or web address] [id number]) Intravenous Solution Start Date 01/01/18 Start Time 13:26 End Date 01/01/18 End time 14:00 Total Infusion Time 34 Vancomycin HCl (Vancomycin 1gm) 1 gm in 250 mls @ 167 mls/hr IVPB STAT STA PRN Reason: Protocol Stop: 01/01/18 13:40 Last Admin: 01/01/18 14:00 Dose: 167 mls/hr eMAR Start Stop Document 01/01/18 14:00 KATHRYN (Rec: 01/01/18 14:00 KATHRYN [id number]) Intravenous Solution Start Date 01/01/18 Start Time 14:00 End Date 01/01/18 End time 15:30 Total Infusion Time 90 - Scribe Statement The provider has reviewed the documentation as recorded by the Felicitasibe Cori eHard Provider Scribe Attestation: All medical record entries made by the Scribe were at my direction and personally dictated by me. I have reviewed the chart and agree that the record accurately reflects my personal performance of the history, physical exam, medical decision making, and the department course for this patient. I have also personally directed, reviewed, and agree with the discharge instructions and disposition. Disposition/Present on Arrival - Present on Arrival Any Indicators Present on Arrival: No History of DVT/PE: No History of Uncontrolled Diabetes: No Urinary Catheter: No History of Decub. Ulcer: No History Surgical Site Infection Following: None - Disposition Have Diagnosis and Disposition been Completed?: Yes Diagnosis: Burn, Cellulitis Disposition: HOME/ ROUTINE Disposition Time: 15:18 Patient Problems: Current Active Problems Problem Status Onset Burn Acute Cellulitis Acute Condition: STABLE Discharge Instructions (ExitCare): Skin Weiner, Cellulitis (ED) Additional Instructions: please follow up with your doctor/specialist. return to er with worsening symptoms or concerns. please consult burn center Outpatient Department To arrange consultative or follow-up care. Prescriptions: Cefpodoxime [Vantin] 100 mg PO BID #14 tab Doxycycline Monohydrate 100 mg PO BID #14 capsule Referrals: Aba Joseph MD [Primary Care Provider] - Follow up with primary Forms: [employer] ([place]ese)
[2018-01-01 13:42] LABS: BASO # 0.03 K/mm3 (0.0-2.0); BASO % 0.4 % (0.0-3.0); EOS # 0.2 (0.0-0.7); GRAN # 4.78 (1.4-6.5); GRAN % 65.2 % (50.0-68.0); HEMOGLOBIN 12.1 g/dL (12.0-16.0); LYMPH # 1.3 (1.2-3.4); LYMPH % 17.8 % (22.0-35.0); MEAN CELL VOLUME 91.2 fl (80.0-105.0); MEAN CORPUSCULAR HEMOGLOBIN 30.6 pg (25.0-35.0); MEAN CORPUSCULAR HGB CONC 33.5 g/dl (31.0-37.0); MEAN PLATELET VOLUME 9.5 fl (7.0-11.0); MONO # 1.1 (0.1-0.6); MONO % 14.6 % (1.0-6.0); RBC 3.96 10^6/uL (3.5-6.1); RED CELL DISTRIBUTION WIDTH 15.1 % (11.5-14.5); WHITE BLOOD COUNT 7.3 10^3/ul (4.5-11.0)
[2018-01-01 13:48] LABS: INR 1.03 (0.93-1.08); PARTIAL THROMBOPLASTIN TIME 36.1 Seconds (25.1-36.5); PROTHROMBIN TIME 11.9 SECONDS (9.4-12.5)
[2018-01-01 14:16] LABS: ALB/GLOB RATIO 1.5 (1.1-1.8); ALBUMIN 4.1 g/dL (3.0-4.8); ALT/SGPT 34 U/L (7-56); AST/SGOT 27 U/L (14-36); BLOOD UREA NITROGEN 12 mg/dL (7-21); GFR AFRICAN-AMERICAN > 60; GFR NON-AFRICAN AMERICAN > 60
[2018-01-01 16:18] VITALS: BP 132/78; PULSE 58; O2SAT 98
== END 2018-01-01 16:18 | disposition home or self-care (01) ==
LOC: ED 11:26
DX: T25.021A Burn of unspecified degree of right foot, initial encounter (principal); X11.8XXA Contact with other hot tap-water, initial encounter; L03.115 Cellulitis of right lower limb; I10 Essential (primary) hypertension; M06.9 Rheumatoid arthritis, unspecified; E03.9 Hypothyroidism, unspecified; Z87.891 Personal history of nicotine dependence
CPT/HCPCS: 80053; 85025; 85610; 85730; 96365; 96367; 99285; J0696

== ENCOUNTER 2018-08-18 15:01 | Emergency (ER) | payer MEDICARE ==
[2018-08-18 15:03] VITALS: BMI 32.9
--- NOTE | 2018-08-18 15:13 | ED PDOC ---
Arrival/HPI - General Chief Complaint: Trauma Time Seen by Provider: 08/18/18 15:04 Historian: Patient - History of Present Illness Narrative History of Present Illness (Text): 08/18/18 15:12 73 year old female, whose past medical history includes hydrocephalus s/p WRAPPER HANDS SPRAYER shunt, hypertension, hypothyroidism and rheumatoid arthritis, presents to the emergency department s/p mechanical fall. Patient was using her cane to go sit down, but fell backwards and hit her head on the edge of the table. Patient any other injury or trauma. Patient quit smoking and denies drinking alcohol. Patient reports headache, but denies any fever, chills, chest pain, shortness of breath, nausea, vomiting, diarrhea, urinary symptoms, back pain, neck pain, numbness, tingling, dizziness, or any other complaints. PMD: Dr. Joseph Time/Duration: Prior to Arrival Symptom Onset: Sudden Activities at Onset: Light Context: Other (Fall) Associated Symptoms (Text): 08/18/18 15:51 Mechanical fall with minor trauma to the occiput just prior to arrival. No neck or back pain. No other injury or trauma. No dizziness or lightheadedness. No nausea or vomiting. No numbness tingling or paresthesias. No weakness. Patient has a right sided shunt which is soft. Past Medical History - Provider Review Nursing Documentation Reviewed: Yes - Infectious Disease Hx of Infectious Diseases: None - Tetanus Immunization Tetanus Immunization: Unknown - Reproductive Menopause: Yes - Cardiac Hx Hypertension: Yes - Pulmonary Hx Respiratory Disorders: No - Neurological Hx Dizziness: Yes Other/Comment: hydrocephalus, with WRAPPER HANDS SPRAYER shunt - HEENT Hx HEENT Disorder: Yes Hx Blind: Yes Hx Macular Degeneration: Yes Other/Comment: LEGALLY BLIND - Renal Hx Renal Disorder: No - Endocrine/Metabolic Hx Hypothyroidism: Yes - Hematological/Oncological Hx Blood Transfusions: Yes - Integumentary Hx Dermatological Disorder: No - Musculoskeletal/Rheumatological Hx Musculoskeletal Disorders: Yes Hx Arthritis: Yes Hx Rheumatoid Arthritis: Yes - Gastrointestinal Hx Gastrointestinal Disorders: Yes Hx Gastroesophageal Reflux: Yes - Genitourinary/Gynecological Hx Genitourinary Disorders: Yes (INCONTINENT) - Psychiatric Hx Substance Use: No - Surgical History Hx Joint Replacement: Yes Hx Orthopedic Surgery: Yes Other/Comment: brain shunt. R wrist fusion. marilu knee replacement - Anesthesia Hx Anesthesia: Yes Hx Anesthesia Reactions: No Hx Malignant Hyperthermia: No - Suicidal Assessment Feels Threatened In Home Enviroment: No Family/Social History - Physician Review Nursing Documentation Reviewed: Yes Family/Social History: No Known Family HX Smoking Status: Former Smoker Hx Alcohol Use: No Hx Substance Use: No Hx Substance Use Treatment: No Allergies/Home Meds Allergies/Adverse Reactions: Allergies Sulfa (Sulfonamide Antibiotics) Allergy (Verified 04/25/17 17:00) RASH sulfamethoxazole [From Bactrim] Allergy (Verified 04/25/17 16:59) RASH trimethoprim [From Bactrim] Allergy (Verified 04/25/17 16:59) RASH eye antibiotic Allergy (Uncoded 01/22/17 16:11) SWELLING BACITRACIN OINT AROUND EYES CAUSED FACIAL SWELLING Home Medications: Home Meds Medication Instructions Recorded Confirmed RX: Levothyroxine [Synthroid] 0.05 mg PO QOTHERDAY 11/21/16 01/01/18 RX: Levothyroxine [Synthroid] 0.075 mg PO MWF 11/21/16 01/01/18 RX: Atenolol [Tenormin] 25 tab PO DAILY 02/01/17 01/01/18 Polyethylene Glycol/Polyvinyl 1 % OU PRN PRN 07/26/17 01/01/18 [Artificial Tears] Lansoprazole [Prevacid] 30 mg PO DAILY 08/22/17 01/01/18 Refresh Opth Soln 1 drop OU DAILY 08/22/17 01/01/18 RX: Gabapentin [Neurontin] 100 mg PO TID 01/01/18 01/01/18 Review of Systems - Physician Review All systems were reviewed & negative as marked: Yes - Review of Systems Constitutional: absent: Fevers, Other (Chills) Respiratory: absent: SOB Cardiovascular: absent: Chest Pain Gastrointestinal: absent: Abdominal Pain, Diarrhea, Nausea, Vomiting Genitourinary Female: absent: Dysuria, Frequency, Hematuria Musculoskeletal: absent: Back Pain, Neck Pain Neurological: Headache. absent: Dizziness, Other (numbness or tingling) Physical Exam Vital Signs Reviewed: Yes Appearance: Positive for: Well-Appearing, Non-Toxic, Comfortable Pain Distress: None Mental Status: Positive for: Alert and Oriented X 3 - Systems Exam Head: Present: Atraumatic, Normocephalic, Abrasion (small abrasion to the occipital area) Pupils: Present: PERRL Extroacular Muscles: Present: EOMI Conjunctiva: Present: Normal Mouth: Present: Moist Mucous Membranes Neck: Present: Normal Range of Motion Respiratory/Chest: Present: Clear to Auscultation, Good Air Exchange. No: Respiratory Distress, Accessory Muscle Use Cardiovascular: Present: Regular Rate and Rhythm, Normal S1, S2. No: Murmurs Abdomen: No: Tenderness, Distention, Peritoneal Signs Back: Present: Normal Inspection Upper Extremity: Present: Normal Inspection. No: Cyanosis, Edema Lower Extremity: Present: Normal Inspection. No: Edema Neurological: Present: GCS=15, CN II-XII Intact, Speech Normal, Motor Func Grossly Intact, Normal Sensory Function, Normal Cerebellar Funct, Norm Deep Te ndon Reflexes Skin: Present: Warm, Dry, Normal Color. No: Rashes Psychiatric: Present: Alert, Oriented x 3, Normal Insight, Normal Concentration Medical Decision Making ED Course and Treatment: 08/18/18 15:12 Impression: 73 year old female presents complaining of headache s/p mechanical fall backwards hitting her head on the edge of a table. Plan: -- CT Head -- Reassess and disposition Prior Visits: Notes and results from previous visits were reviewed. Progress Notes: PROCEDURE: CT HEAD WITHOUT CONTRAST. Dictator : Jagdish Snowden MD Report Date : 08/18/2018 16:18:22 IMPRESSION: Redemonstrated is in situ WRAPPER HANDS SPRAYER shunt tube with persistent marked dilatation of the 3rd and lateral ventricles. Note the possibility of shunt malfunction not excluded. No acute intracranial hemorrhage. There appear to be minimal chronic periventricular white matter low-attenuation changes 08/18/18 16:27 Discussed in detail with the radiologist his findings of chronic unchanged dilated ventricles and his feeling that this was not an acute problem. Also discussed with the neurosurgeon at [facility] [phone]. Patient will be discharged home to follow-up at [facility] - Scribe Statement The provider has reviewed the documentation as recorded by the Keli Vargas Provider Scribe Attestation: All medical record entries made by the Scribe were at my direction and personally dictated by me. I have reviewed the chart and agree that the record accurately reflects my personal performance of the history, physical exam, medi colleen decision making, and the department course for this patient. I have also personally directed, reviewed, and agree with the discharge instructions and disposition. Disposition/Present on Arrival - Present on Arrival Any Indicators Present on Arrival: No History of DVT/PE: No History of Uncontrolled Diabetes: No Urinary Catheter: No History of Decub. Ulcer: No History Surgical Site Infection Following: None - Disposition Have Diagnosis and Disposition been Completed?: Yes Diagnosis: Head contusion Disposition: HOME/ ROUTINE Disposition Time: 16:29 Patient Plan: Discharge Condition: GOOD Discharge Instructions (ExitCare): Minor Head Injury Forms: [facility] ([place])
--- NOTE | 2018-08-18 16:22 | CT ---
Date of service: 08/18/2018 PROCEDURE: CT HEAD WITHOUT CONTRAST. HISTORY: trauma COMPARISON: Comparison made with prior CT scan brain 06/04/2018. The TECHNIQUE: Axial computed tomography images were obtained through the head/brain without intravenous contrast. Radiation dose: Total exam DLP = 829.22 mGy-cm. This CT exam was performed using one or more of the following dose reduction techniques: Automated exposure control, adjustment of the mA and/or kV according to patient size, and/or use of iterative reconstruction technique. FINDINGS: HEMORRHAGE: No acute parenchymal, subarachnoid or extra-axial hemorrhage. BRAIN: In situ PRESCRIPTIONIST shunt to again seen entering right occipito parietal angus hole traversing the right parietal lobe and right occipital horn/atrium and lateral ventricle terminating adjacent to midline at the posterior margin of the frontal horns. The 3rd and lateral ventricles remain markedly dilated with more normal-appearing 4th ventricle. Note that the possibility of chronic shunt malfunction cannot be excluded on this study.. Suspect minimal chronic periventricular low-attenuation changes. VENTRICLES: Marked dilatation 3rd and lateral ventricles. CALVARIUM: Redemonstrated are 2 right a temporoparietal angus holes and left frontoparietal craniotomy defect PARANASAL SINUSES: Unremarkable as visualized. No significant inflammatory changes. MASTOID AIR CELLS: Unremarkable as visualized. No inflammatory changes. OTHER FINDINGS: Left-sided cataract surgery again noted. IMPRESSION: Redemonstrated is in situ PRESCRIPTIONIST shunt tube with persistent marked dilatation of the 3rd and lateral ventricles. Note the possibility of shunt malfunction not excluded. No acute intracranial hemorrhage. There appear to be minimal chronic periventricular white matter low-attenuation changes
[2018-08-18 16:55] VITALS: BP 139/61; PULSE 81; RESP 18; TEMP 98.1; O2SAT 99
== END 2018-08-18 17:01 | disposition home or self-care (01) ==
LOC: ED 15:01
DX: S00.93XA Contusion of unspecified part of head, initial encounter (principal); W18.30XA Fall on same level, unspecified, initial encounter; I10 Essential (primary) hypertension; E03.9 Hypothyroidism, unspecified; M06.9 Rheumatoid arthritis, unspecified; Z87.891 Personal history of nicotine dependence